=== PATIENT | male | born 1935 ===

== ENCOUNTER 2018-01-23 07:58 | Day surgery (SDC) | payer MEDICARE, OTHER ==
[~2018-01-23] VITALS: Ht 162.6 cm; Wt 74.4 kg
[~2018-01-23 07:58] MED LIST: ALPR.5 PO; ALTACE; AMLO5; AMLO5 PO; ASPI81CH PO; ATOR10; BISHYD5; CEPH500 PO; CETI5 PO; CHOL10002 PO; CLOP75 PO; Cipro250 MG PO; Colace100 MG PO; DIAZ5 PO; FURO20 PO; FURO40 PO; Flonase 0.05% N16 GM; HYDACE5 PO; IRON325 MG PO; JOINT ADVANTAGE GOLD; LANS30EC PO; LEVSOD100 PO; LIVALO1 MG PO; LIVALO2 MG PO; Norvasc2.5 MG PO; OMEP20ER; OXYACE10 PO; OXYACE5T PO; PANT40 PO; POTA10T PO; POTCHL20ER; QUET25 PO; QUIN200; RAMI5 PO; ROSU5 PO; SERT100 PO; SERT25 PO; SODBIC650 PO; Sodium Bicarbo325 MG PO; VITAMIN D32000 UNIT PO; [UNRECOGNIZED DRUG - REMARK]; [UNRECOGNIZED DRUG - REMARK]
== END 2018-01-23 10:35 | disposition home or self-care (01) ==
LOC: ORSCSDS 07:58
PROVIDERS: Podiatrist Foot & Ankle Surgery
PROC: 0QBN0ZZ Excision of Right Metatarsal, Open Approach (ICD-10-PCS; principal; 2018-01-23 09:00)
DX: M25.871 Other specified joint disorders, right ankle and foot (principal); M19.071 Primary osteoarthritis, right ankle and foot; Q82.8 Other specified congenital malformations of skin; I10 Essential (primary) hypertension; I50.9 Heart failure, unspecified; I25.10 Atherosclerotic heart disease of native coronary artery without angina pectoris; K21.9 Gastro-esophageal reflux disease without esophagitis; E03.9 Hypothyroidism, unspecified; E78.00 Pure hypercholesterolemia, unspecified; F32.9 Major depressive disorder, single episode, unspecified; Z79.899 Other long term (current) drug therapy
CPT/HCPCS: 88305; 88311; J0690; J7030

== ENCOUNTER 2018-03-11 19:20 | Emergency (ER) | payer MEDICARE, OTHER ==
[~2018-03-11] VITALS: Ht 165.1 cm; Wt 72.6 kg
[2018-03-11 21:01] LABS: Source, Urine Catheter
[2018-03-11 21:05] LABS: Bilirubin, Urine Neg (Neg); Blood, Urine 5+ (Neg); Glucose Qualitative, Urine Neg (Neg); Ketones, Urine Neg (Neg); Leukocyte Esterase, Urine 3+ (Neg); Nitrite, Urine Neg (Neg); Protein, Urine 3+ (Neg); Urobilinogen, Urine NORM (Normal)
[2018-03-11 21:18] LABS: Appearance, Urine Cloudy (Clear); Color, Urine Yellow (P-Yellow)
[2018-03-11 21:19] LABS: White Blood Cells, Urine TNTC /hpf (0-5)
[2018-03-11 21:20] LABS: Bacteria Many /hpf; Squamous Epithelial Cells Rare /hpf (Few)
[2018-03-11] MEDS ORDERED: Cipro500 MG PO (21:44)
== END 2018-03-11 22:08 | disposition home or self-care (01) ==
LOC: ER 19:20
PROVIDERS: Emergency Medicine
DX: T83.091A Other mechanical complication of indwelling urethral catheter, initial encounter (principal); N39.0 Urinary tract infection, site not specified; Z79.899 Other long term (current) drug therapy; I10 Essential (primary) hypertension
CPT/HCPCS: 81001; 87077; 87086; 87186; 99283

== ENCOUNTER → 2018-12-08 | Outpatient (CLI) | payer MEDICARE, OTHER ==
[~2018-12-08] MED LIST changes: +Cipro500 MG PO
[2018-12-08 16:15] LABS: Source, Urine Clean Catch
[2018-12-08 16:50] LABS: Appearance, Urine Turbid (Clear); Bilirubin, Urine Neg (Neg); Blood, Urine 5+ (Neg); Color, Urine Yellow (P-Yellow); Glucose Qualitative, Urine 2+ (Neg); Ketones, Urine Neg (Neg); Leukocyte Esterase, Urine 3+ (Neg); Nitrite, Urine Neg (Neg); Protein, Urine 3+ (Neg); Specific Gravity, Urine 1.025 (1.003-1.022); Urobilinogen, Urine NORM (Normal)
[2018-12-08 17:01] LABS: White Blood Cells, Urine TNTC /hpf (0-5)
[2018-12-08 17:04] LABS: Bacteria Mod /hpf; Squamous Epithelial Cells Not Seen /hpf (Few); Yeast/Fungi Urine Mod /hpf
== END | disposition home or self-care (01) ==
LOC: LAB SHORT 16:12 → LAB 16:12 → EDSTATUS 12-08 15:35 → LAB FUT 12-08 15:35
PROVIDERS: Internal Medicine
DX: R30.0 Dysuria (principal)
CPT/HCPCS: 81001; 87086; 87106

== ENCOUNTER 2019-02-06 20:31 | Emergency (ER) | payer MEDICARE, OTHER ==
[~2019-02-06] VITALS: Ht 162.6 cm; Wt 77.1 kg
[2019-02-06 22:15] LABS: Calcium, Ionized (POC) 0.99 mmol/L (1.10-1.46); Chloride (POC) 95 mmol/L (98-108); Creatinine (POC) 9.9 mg/dL (0.8-1.3); Glucose (ISTAT POC) 121 mg/dL (70-99); Hemoglobin (POC) 8.8 g/dL (13.5-17.5); Potassium (POC) 3.7 mmol/L (3.5-5.5); Sodium (POC) 137 mmol/L (135-148); Total CO2 (POC) 30 mmol/L (21-32)
[2019-02-07] MEDS ORDERED: Percocet 5-3251 EACH PO (10:04)
[2019-02-07] MEDS ORDERED: GABA100 PO (10:05)
[2019-02-07] MEDS ORDERED: POTA10T PO (10:05)
== END 2019-02-06 22:43 | disposition home or self-care (01) ==
LOC: ER 20:31
PROVIDERS: Emergency Medicine
DX: S06.0X9A Concussion with loss of consciousness of unspecified duration, initial encounter (principal); I12.0 Hypertensive chronic kidney disease with stage 5 chronic kidney disease or end stage renal disease; N18.6 End stage renal disease; Z99.2 Dependence on renal dialysis; W18.30XA Fall on same level, unspecified, initial encounter; Z79.899 Other long term (current) drug therapy
CPT/HCPCS: 70450; 72125; 80047; 85014; 93005; 93010; 99284-25; L0160

== ENCOUNTER 2019-02-07 09:42 | Emergency (ER) | payer MEDICARE, OTHER ==
[~2019-02-07] VITALS: Ht 162.6 cm; Wt 79.4 kg
[2019-02-07] MEDS ORDERED: Percocet 5-3251 EACH PO (10:04)
[2019-02-07] MEDS ORDERED: POTA10T PO (10:05)
[2019-02-07] MEDS ORDERED: GABA100 PO (10:05)
== END 2019-02-07 11:22 | disposition home or self-care (01) ==
LOC: ER 09:42
DX: S06.5X9D Traumatic subdural hemorrhage with loss of consciousness of unspecified duration, subsequent encounter (principal); W18.30XD Fall on same level, unspecified, subsequent encounter; Z79.899 Other long term (current) drug therapy; I12.0 Hypertensive chronic kidney disease with stage 5 chronic kidney disease or end stage renal disease; N18.5 Chronic kidney disease, stage 5
CPT/HCPCS: 70450; 99283-25

== ENCOUNTER 2019-03-07 13:29 | Inpatient (IN) | payer MEDICARE, OTHER ==
[~2019-03-07] VITALS: Ht 165.1 cm; Wt 83.5 kg
[~2019-03-07 13:29] MED LIST changes: +GABA100 PO; +Percocet 5-3251 EACH PO
[2019-03-07 13:53] LABS: BASOPHILS ABSOLUTE AUTO 0.03 K/mm3 (0.00-0.23); BASOPHILS PERCENT AUTO 0 % (0-2); EOSINOPHILS ABSOLUTE AUTO 0.19 K/mm3 (0.00-0.68); EOSINOPHILS PERCENT AUTO 2 % (0-6); Hemoglobin 8.2 g/dL (13.5-17.5); IMMATURE GRAN ABSOLUTE AUTO 0.18 K/mm3 (0.00-0.10); IMMATURE GRAN PERCENT AUTO 2 % (0-1); LYMPHOCYTES ABSOLUTE AUTO 0.68 K/mm3 (0.84-5.20); LYMPHOCYTES PERCENT AUTO 8 % (21-46); MONOCYTES ABSOLUTE AUTO 0.98 K/mm3 (0.16-1.47); MONOCYTES PERCENT AUTO 11 % (4-13); Mean Corpuscular HGB 38.3 pg (26.0-34.0); Mean Corpuscular HGB Conc 31.5 g/dL (31.5-36.5); Mean Corpuscular Volume 122 fL (80-100); Mean Platelet Volume 8.7 fL (9.1-12.4); NEUTROPHILS ABSOLUTE AUTO 6.94 K/mm3 (1.96-9.15); NEUTROPHILS PERCENT AUTO 77 % (41-73); Platelet Count 158 K/mm3 (150-400); RDW Coefficient Variation 15.9 % (11.7-14.2); RDW Standard Deviation 72.2 fL (35.1-46.3); Red Blood Cell Count 2.14 M/mm3 (4.30-5.90)
[2019-03-07 14:23] LABS: Troponin I 0.138 ng/mL (0.000-0.040)
[2019-03-07 14:27] LABS: Albumin, Blood 2.9 g/dL (3.4-5.0); Albumin/Globulin Ratio 0.9 (0.8-1.8); Bilirubin, Total 0.6 mg/dL (0.1-1.0); Bun/Creatinine Ratio 4.7 (12.0-20.0); Calcium, Blood 7.9 mg/dL (8.5-10.1); Creatinine, Blood 10.2 mg/dL (0.60-1.20); Globulin, Blood 3.2 g/dL (2.2-4.0); Total Protein, Blood 6.1 g/dL (6.4-8.2)
[2019-03-07 14:54] LABS: Magnesium, Blood 1.7 mg/dL (1.6-2.4)
[2019-03-07 14:56] LABS: Thyroid Stimulating Hormone 2.29 uIU/mL (0.360-4.800)
--- NOTE | 2019-03-07 19:44 | NUR ---
PERITONEAL DIALYSIS PATIENT WITH PENDING ADMIT TO FLOOR VIA ER. ORDERS RECIEVED FOR [facility] CCPD THERAPY FROM DR KING. AWAITING ROOM ASSIGNMENT IN ORDER TO SET UP AND INITIATE THERAPY. WAIT TIME WILL COMMENCE 2014.
--- NOTE | 2019-03-07 21:33 | NUR ---
PATIENT ADMITTED TO PCU ROOM 6 FROM ER. TRANSFER DELAYED DUE TO NEED FOR URGENT ROOM ADJUSTMENTS IN UNIT SECONDARY TO TO EXISTING PATIENT ACUITIES. PATIENT TRANSFERED SOON STAT HOUSKEEPING ACCOMPLISHED IN RECIEVING ROOM. ONE UNIT WAIT TIME ASSESSED. PATIENT AWAKE ALERT AND IN NO APPARENT DISTRESS AT THIS TIME. CYCLER SET UP, PRIMED AND PROGRAMMED PER DR KING'S RX. PATIENT AESEPTICALLY CONNECTED AND THERAPY STARTED. INITIAL DRAIN MONITORED FOR COMPLETENESS AND COMFORT. EXIT SITE CARE DONE AND NEW STERILE DRESING APPLIED WITH STRAIN RELIEFS. PATIENT'S DAUGHTER AT BEDSIDE AT START OF FILL #1 AND PATIENT COMFORTABLE AND VISITING WELL COMPLETING ADMIT ASSESSMENT WITH ADMITTING MILL WORK.
[2019-03-07] MEDS ORDERED: CALC.25 PO (22:18)
[2019-03-07] MEDS ORDERED: UBID100 PO (22:18)
[2019-03-07] MEDS ORDERED: Rena-Vite Tabl0.8 MG PO (22:21)
[2019-03-07] MEDS ORDERED: CVS OMEGA-3 KR1 EACH PO (22:21)
[2019-03-07] MEDS ORDERED: Garlic1 EAC1 PO (22:22)
[2019-03-07] MEDS ORDERED: Calcium Acetat667 MG PO (22:22)
[2019-03-07 23:55] LABS: Source, Urine Catheter
[2019-03-07 23:57] LABS: Bilirubin, Urine Neg (Neg); Blood, Urine 5+ (Neg); Glucose Qualitative, Urine 2+ (Neg); Ketones, Urine Neg (Neg); Leukocyte Esterase, Urine 3+ (Neg); Nitrite, Urine Neg (Neg); Protein, Urine 3+ (Neg); Urobilinogen, Urine NORM (Normal)
[2019-03-08 00:01] LABS: Appearance, Urine Turbid (Clear); Color, Urine Pale Yellow (P-Yellow)
[2019-03-08 00:05] LABS: Bacteria Many /hpf; Red Blood Cells, Urine 0-2 /hpf (0-2); Squamous Epithelial Cells Few /hpf (Few); White Blood Cells, Urine TNTC /hpf (0-5); Yeast/Fungi Urine Mod /hpf
[2019-03-08 05:15] LABS: Hematocrit 25.2 % (37.0-53.0); Hemoglobin 7.9 g/dL (13.5-17.5); Mean Corpuscular HGB 37.8 pg (26.0-34.0); Mean Corpuscular HGB Conc 31.3 g/dL (31.5-36.5); Mean Corpuscular Volume 121 fL (80-100); Mean Platelet Volume 8.5 fL (9.1-12.4); Platelet Count 143 K/mm3 (150-400); RDW Coefficient Variation 15.9 % (11.7-14.2); RDW Standard Deviation 70.6 fL (35.1-46.3); Red Blood Cell Count 2.09 M/mm3 (4.30-5.90); White Blood Cell Count 6.99 K/mm3 (4.00-11.30)
[2019-03-08 05:57] LABS: Magnesium, Blood 1.7 mg/dL (1.6-2.4)
--- NOTE | 2019-03-08 06:00 | NUR ---
SHIFT SUMMARY PT WAS ALERT AND ORIENTED X 3 ON ARRIVAL FROM ER. HE DENIED ANY COMPLAINTS OF PAIN OR CHEST DISCOMFORT. PT IS ABLE TO COMMUNICATE EFFECTIVELY WITH STAFF, THOUGH HE IS HARD OF HEARING AND WEARS BILATERAL HEARING AIDES. HE DOES NOT DO WELL WHEN MULTIPLE PEOPLE ARE TALKING AT THE SAME TIME. PT HAS NEW AFIB WITHOUT A HISTORY OF SUCH. HE CONVERTED TO NORMAL SINUS WITH FIRST DEGREE AT 1430 ON 03/07. PT CONTINUES TO REMAIN IN THIS RYTHYM AT THIS TIME. PT TROPONIN WAS SLIGHTLY ELEVATED, AND T/O SHIFT CONTINUED TO INCREASE. PT ENDED WITH CRITICAL HIGH BY END OF SHIFT. PT SLEPT WELL, DENIED ANY PAIN AND HIS VITALS WERE STABLE T/O SHIFT. PT HAD NO ACUTE CHANGES TO HIS VITAL SIGNS OR LOC T/O SHIFT. HE HAS HIS BED IN THE LOWEST POSITION, 2X SIDE RAILS IN PLACE AND BED ALARM ACTIVE FOR SAFETY. PT HAS HIS CALL LIGHT IN REACH AND DEMONSTRATED APPROPRIATE USE OF IT. PT DENIED ANY UNMET NEEDS DURING THE NIGHT. PT WILL CONTINUE TO BE MONITORED UNTIL HANDOFF TO DAYSHIFT RN. .
[2019-03-08 06:24] LABS: Albumin, Blood 2.6 g/dL (3.4-5.0); Anion Gap 8 mmol/L (6-16); Blood Urea Nitrogen 49 mg/dL (8-24); CO2, Blood 28 mmol/L (21-32); Calcium, Blood 7.7 mg/dL (8.5-10.1); Chloride, Blood 99 mmol/L (98-108); Creatinine, Blood 9.78 mg/dL (0.60-1.20); Glomerular Filtration Rate 5 (60-); Glucose, Blood 114 mg/dL (70-99); Phosphorus, Blood 6.4 mg/dL (2.5-4.9); Potassium, Blood 3.9 mmol/L (3.5-5.5); Sodium, Blood 135 mmol/L (136-145)
--- NOTE | 2019-03-08 07:38 | NUR ---
PATIENT WAKENS EASILY TO FULL ORIENT. NO VERB COMPLAINTS EXPRESSED. OVERNIGHT CCPD THERAPY COMPLETE. PATIENT AESEPTICALLY DISCONNECTED AND CAPPED WITH NEW MINI-CAP. CYCLER STRIPPED AND CLEANED.
--- NOTE | 2019-03-08 11:23 | NUR ---
PARTIAL ECHOCARDIOGRAM COMPLETED
--- NOTE | 2019-03-08 19:09 | NUR ---
PATIENT ALERT, ORIENTED AND CONVERSANT. NO REPORT OF DISCOMFORT AT THIS TIME. OVERNIGHT CCPD SET UP, PRIMED AND PROGRAMMED PER DR KING'S RX. WHEN PRIME COMPLETED, PATIENT WAS AESEPTICALLY CONNECTED AND THERAPY STARTED. EXIT SITE CARE DONE. EXIT SITE CLEAR, DRY, TIGHT AND NON-TENDER. NEW STERILE DRESSING APPLIED WITH 2 STRAIN RELIEFS. INITIAL DRAIN MONITORED FOR PATIENT TOLERANCE. PCU STAFF AWARE OF CCPD THERAPY IN PROCESS THROUGHOUT NIGHT.
--- NOTE | 2019-03-09 01:29 | NUR ---
hemodyalisis continues, with no alarm, pt denies pain or discomfort, hoping to get some sleep before lab has to draw blood
[2019-03-09 04:21] LABS: Hematocrit 25.3 % (37.0-53.0); Hemoglobin 8.1 g/dL (13.5-17.5); Mean Corpuscular HGB 37.9 pg (26.0-34.0); Mean Platelet Volume 8.9 fL (9.1-12.4); Platelet Count 159 K/mm3 (150-400); RDW Coefficient Variation 15.5 % (11.7-14.2); RDW Standard Deviation 67.2 fL (35.1-46.3); Red Blood Cell Count 2.14 M/mm3 (4.30-5.90); White Blood Cell Count 7.15 K/mm3 (4.00-11.30)
[2019-03-09 04:22] LABS: Mean Corpuscular Volume 118 fL (80-100)
[2019-03-09 04:44] LABS: Percent Saturation 41.4 % (20.0-50.0)
[2019-03-09 04:50] LABS: Albumin, Blood 2.5 g/dL (3.4-5.0); Anion Gap 10 mmol/L (6-16); Blood Urea Nitrogen 46 mg/dL (8-24); CO2, Blood 27 mmol/L (21-32); Calcium, Blood 8.1 mg/dL (8.5-10.1); Chloride, Blood 99 mmol/L (98-108); Creatinine, Blood 9.21 mg/dL (0.60-1.20); Glomerular Filtration Rate 6 (60-); Glucose, Blood 110 mg/dL (70-99); Phosphorus, Blood 6.6 mg/dL (2.5-4.9); Potassium, Blood 3.6 mmol/L (3.5-5.5); Sodium, Blood 136 mmol/L (136-145)
--- NOTE | 2019-03-09 07:20 | NUR ---
a+o, pascale, dialisys completed, shoulders still limited in movement which is baseline, call light in reach, saline locked, room air, walking rounds completed with day staff
--- NOTE | 2019-03-09 12:27 | NUR ---
DIALYSIS-PD GATHERED SUPPLIES AND ENTERED PT'S ROOM. HE WAS SITTING UP IN BED EAING. I CLEANED AND SOAKED HIS PORT WITH ALCAVIS. TOOK INFO OFF OF THE MACHINE. THEN DC'ED THE TX PER MAIKEL. PT HAD NO COMPLAINTS, HOPES TO GO HOME TODAY.
--- NOTE | 2019-03-09 18:47 | NUR ---
SHIFT SUMMARY. A&OX3, PLEASANT, ONE ASSIST WITH FWW AND GB. PT DENIES PAIN, SOB, N/V. PT RECIEVED ONE UNIT PRBC AND TOLERATED WELL. TELE COTNINUED NSR WITH NO EVENTS. AND DAUGHTER IN TO VISIT THIS EVENING. NO NEW CHANGES.
--- NOTE | 2019-03-09 23:39 | NUR ---
DIALYSIS-PD 1899 BEGAN SETTING UP MACHINE FOR PT, TOOK MACHINE TO PT'S ROOM. WAITED FOR HIM TO GO TO THE BR. CONNECTED PT TO TX AT 2004. EXPLAINED ALARMS TO FLOOR NURSE. SITE CLEAR.
[2019-03-10 04:12] LABS: Hematocrit 26.5 % (37.0-53.0); Hemoglobin 8.8 g/dL (13.5-17.5)
[2019-03-10 04:45] LABS: Albumin, Blood 2.3 g/dL (3.4-5.0); Anion Gap 9 mmol/L (6-16); Blood Urea Nitrogen 46 mg/dL (8-24); Bun/Creatinine Ratio 5.1 (12.0-20.0); CO2, Blood 26 mmol/L (21-32); Calcium, Blood 7.9 mg/dL (8.5-10.1); Chloride, Blood 97 mmol/L (98-108); Creatinine, Blood 9.09 mg/dL (0.60-1.20); Glomerular Filtration Rate 6 (60-); Glucose, Blood 117 mg/dL (70-99); Phosphorus, Blood 5.6 mg/dL (2.5-4.9); Potassium, Blood 3.4 mmol/L (3.5-5.5); Sodium, Blood 132 mmol/L (136-145)
--- NOTE | 2019-03-10 05:44 | NUR ---
SHIFT SUMMARY. PD SET UP AT 1999 AND NO ADVERSE OCCURRANCE THRU NOC. ASSUMED CARE FOR THIS PT AT 1930. 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
--- NOTE | 2019-03-10 07:59 | NUR ---
pt laying in bed with P.D. still in place. pt wakes easily, denies pain, states he feels good, lungs are clear in upper mackey, with occ wheeze to mid field, dim in bases, resp even and unlabored, no cough noted, hrr, tele in place running sr with 1st degree per monitor, see strip, no edema noted, ppp+1, cap refill <3sec, vs stable, afebrile, iv site is clear and patent, to left wrist area, is s.l. 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 call light in reach.
--- NOTE | 2019-03-10 08:38 | NUR ---
DIALYSIS-PD TOOK SUPPLIES INTO PT'S ROOM. DC'ED TX PER PROTOCAL. PT EATING BREAKFAST. DENIES SOB. 98 ID [id number]. SOLUTION CLEAR. SITE CLEAR.
--- NOTE | 2019-03-10 12:08 | NUR ---
BEGAN ONE UNIT OF PRBC. VS STABLE. LUNGS ARE CLEAR T/O, PT AWARE TO CALL IF ANY CHANGES IN CONDITION. BLOOD CONSENT WAS SIGNED. HE IS SITTING UP IN THE CHAIR FOR LUNCH. CALL LIGHT IN REACH.
[2019-03-10] MEDS ORDERED: LO-DOSE ASPIRIN81 MG PO (14:40)
[2019-03-10] MEDS ORDERED: NITR.4SL SL (14:47)
--- NOTE | 2019-03-10 16:30 | NUR ---
PT HAS BEEN DISCHARGED TO HOME. WENT OVER ALL DISCHARGE INSTRUCTIONS WITH HIM, HE VERBALIZED UNDERSTANDING, WAS GIVEN OPPORTUNITY TO ASK QUESTIONS, HE DID NOT HAVE ANY, HIS F/U APPTS ARE SET, IV REMOVED INTACT, NEW MEDICATIONS CALLED INTO PHARMACY.HE DID RECIEVE ONE UNIT OF PRBCS WITH 40MG LASIX AFTER. GRANDSON CAME IN TO TAKE HIM HOME, HE ASSISTED HIM GETTING DRESSED. LEFT VIA WHEELCHAIR WITH INHALATION THERAPY TEACHER IN ATTENDENCE.
== END 2019-03-10 16:44 | disposition home or self-care (01) | DRG 280 ==
LOC: ER 13:29 → PCU 13:30
PROVIDERS: Emergency Medicine; Internal Medicine; Nurse Practitioner Acute Care; ADMIT Family Medicine
PROC: 3E1M39Z Irrigation of Peritoneal Cavity using Dialysate, Percutaneous Approach (ICD-10-PCS; principal; 2019-03-09)
PROC: 30233N1 Transfusion of Nonautologous Red Blood Cells into Peripheral Vein, Percutaneous Approach (ICD-10-PCS; 2019-03-10)
DX: I48.0 Paroxysmal atrial fibrillation (principal); N18.6 End stage renal disease; I21.A1 Myocardial infarction type 2; I12.0 Hypertensive chronic kidney disease with stage 5 chronic kidney disease or end stage renal disease; E87.1 Hypo-osmolality and hyponatremia; D63.1 Anemia in chronic kidney disease; Z99.2 Dependence on renal dialysis; E03.9 Hypothyroidism, unspecified; F41.8 Other specified anxiety disorders; I25.10 Atherosclerotic heart disease of native coronary artery without angina pectoris; E78.5 Hyperlipidemia, unspecified; M54.9 Dorsalgia, unspecified; M19.90 Unspecified osteoarthritis, unspecified site; Z91.81 History of falling; Z95.5 Presence of coronary angioplasty implant and graft; E83.39 Other disorders of phosphorus metabolism
CPT/HCPCS: 36415; 71046; 80053; 80069; 81001; 82728; 83540; 83550; 83735; 84443; 84484; 85014; 85018; 85025; 85027; 86850; 86900; 86901; 86923; 87086; 93005; 93010; 93308; 93321; 96360; 96361; 96372; 96374; 97116; 97162; 97530; 99285-25; G0378; J0881; J1940; J3010; J7030; J7050; P9016

== ENCOUNTER 2019-03-20 13:57 | Emergency (ER) | payer MEDICARE, OTHER ==
[~2019-03-20] VITALS: Ht 162.6 cm; Wt 74.8 kg
[~2019-03-20 13:57] MED LIST changes: +CALC.25 PO; +CVS OMEGA-3 KR1 EACH PO; +Calcium Acetat667 MG PO; +Garlic1 EAC1 PO; +LO-DOSE ASPIRIN81 MG PO; +NITR.4SL SL; +Rena-Vite Tabl0.8 MG PO; +UBID100 PO
[2019-03-20 14:46] LABS: BASOPHILS ABSOLUTE AUTO 0.05 K/mm3 (0.00-0.23); BASOPHILS PERCENT AUTO 1 % (0-2); EOSINOPHILS ABSOLUTE AUTO 0.18 K/mm3 (0.00-0.68); EOSINOPHILS PERCENT AUTO 2 % (0-6); Hematocrit 38.1 % (37.0-53.0); Hemoglobin 11.8 g/dL (13.5-17.5); IMMATURE GRAN ABSOLUTE AUTO 0.29 K/mm3 (0.00-0.10); IMMATURE GRAN PERCENT AUTO 4 % (0-1); LYMPHOCYTES ABSOLUTE AUTO 0.64 K/mm3 (0.84-5.20); LYMPHOCYTES PERCENT AUTO 8 % (21-46); MONOCYTES ABSOLUTE AUTO 0.79 K/mm3 (0.16-1.47); MONOCYTES PERCENT AUTO 10 % (4-13); Mean Corpuscular HGB 35.3 pg (26.0-34.0); Mean Corpuscular Volume 114 fL (80-100); Mean Platelet Volume 8.9 fL (9.1-12.4); NEUTROPHILS ABSOLUTE AUTO 6.01 K/mm3 (1.96-9.15); NEUTROPHILS PERCENT AUTO 76 % (41-73); NRBC ABSOLUTE 0.02 K/mm3 (0.00-0.02); NRBC Auto 0.3 /100 WBC (0.0-0.2); Platelet Count 166 K/mm3 (150-400); RDW Coefficient Variation 18.8 % (11.7-14.2); RDW Standard Deviation 78.3 fL (35.1-46.3); Red Blood Cell Count 3.34 M/mm3 (4.30-5.90); White Blood Cell Count 7.96 K/mm3 (4.00-11.30)
[2019-03-20 15:13] LABS: Troponin I 0.074 ng/mL (0.000-0.040)
[2019-03-20 15:29] LABS: Albumin, Blood 3.3 g/dL (3.4-5.0); Albumin/Globulin Ratio 0.9 (0.8-1.8); Bilirubin, Total 0.4 mg/dL (0.1-1.0); Globulin, Blood 3.7 g/dL (2.2-4.0); Potassium, Blood 3.8 mmol/L (3.5-5.5)
[2019-03-20 15:33] LABS: Bun/Creatinine Ratio 5.3 (12.0-20.0); Creatinine, Blood 9.64 mg/dL (0.60-1.20)
== END 2019-03-20 16:35 | disposition home or self-care (01) ==
LOC: ER 13:57
PROVIDERS: Emergency Medicine
DX: I48.91 Unspecified atrial fibrillation (principal); I12.9 Hypertensive chronic kidney disease with stage 1 through stage 4 chronic kidney disease, or unspecified chronic kidney disease; N18.9 Chronic kidney disease, unspecified; E78.5 Hyperlipidemia, unspecified
CPT/HCPCS: 36415; 80053; 84484; 85025; 93005; 93010; 99283-25

== ENCOUNTER 2019-03-23 11:56 | Inpatient (IN) | payer MEDICARE, OTHER ==
[~2019-03-23] VITALS: Ht 172.7 cm; Wt 74.8 kg
[2019-03-23 12:30] LABS: BASOPHILS ABSOLUTE AUTO 0.06 K/mm3 (0.00-0.23); BASOPHILS PERCENT AUTO 1 % (0-2); EOSINOPHILS ABSOLUTE AUTO 0.04 K/mm3 (0.00-0.68); EOSINOPHILS PERCENT AUTO 0 % (0-6); Hematocrit 35.8 % (37.0-53.0); Hemoglobin 11.4 g/dL (13.5-17.5); IMMATURE GRAN PERCENT AUTO 2 % (0-1); LYMPHOCYTES ABSOLUTE AUTO 0.53 K/mm3 (0.84-5.20); LYMPHOCYTES PERCENT AUTO 4 % (21-46); MONOCYTES ABSOLUTE AUTO 0.97 K/mm3 (0.16-1.47); MONOCYTES PERCENT AUTO 8 % (4-13); Mean Corpuscular HGB 35.5 pg (26.0-34.0); Mean Corpuscular HGB Conc 31.8 g/dL (31.5-36.5); Mean Corpuscular Volume 112 fL (80-100); Mean Platelet Volume 9.2 fL (9.1-12.4); NEUTROPHILS ABSOLUTE AUTO 10.73 K/mm3 (1.96-9.15); NEUTROPHILS PERCENT AUTO 86 % (41-73); NRBC ABSOLUTE 0.04 K/mm3 (0.00-0.02); NRBC Auto 0.3 /100 WBC (0.0-0.2); Platelet Count 162 K/mm3 (150-400); RDW Coefficient Variation 19.9 % (11.7-14.2); RDW Standard Deviation 79.6 fL (35.1-46.3); Red Blood Cell Count 3.21 M/mm3 (4.30-5.90); White Blood Cell Count 12.53 K/mm3 (4.00-11.30)
[2019-03-23 12:53] LABS: Albumin, Blood 2.8 g/dL (3.4-5.0); Albumin/Globulin Ratio 0.7 (0.8-1.8); Bilirubin, Total 0.7 mg/dL (0.1-1.0); Bun/Creatinine Ratio 4.9 (12.0-20.0); Calcium, Blood 9.2 mg/dL (8.5-10.1); Creatinine, Blood 10.6 mg/dL (0.60-1.20); Globulin, Blood 4.2 g/dL (2.2-4.0); Potassium, Blood 3.9 mmol/L (3.5-5.5)
[2019-03-23 17:03] LABS: Source, Urine Catheter
[2019-03-23 17:09] LABS: Bilirubin, Urine Neg (Neg); Blood, Urine 5+ (Neg); Glucose Qualitative, Urine 2+ (Neg); Ketones, Urine Neg (Neg); Leukocyte Esterase, Urine 3+ (Neg); Nitrite, Urine Neg (Neg); Protein, Urine 4+ (Neg); Urobilinogen, Urine NORM (Normal)
[2019-03-23 17:22] LABS: Appearance, Urine Cloudy (Clear); Color, Urine Yellow (P-Yellow)
[2019-03-23 17:26] LABS: Amorphous Light (0-Heavy); Bacteria Few /hpf; Mucus Light (0-Heavy); Squamous Epithelial Cells Rare /hpf (Few); White Blood Cells, Urine TNTC /hpf (0-5)
[2019-03-23] MEDS ORDERED: FLUC100 PO (19:31)
[2019-03-23 20:40] LABS: Automated BF WBC Count 0.012 K/mm3 (0-999); Body Fluid WBC Count 12 /mm3 (0-999)
[2019-03-23 20:48] LABS: Appearance, Body Fluid Clear (Clear); Color, Body Fluid No color (None-Yellow); RBC Count, Body Fluid 0 /mm3 (0-0)
[2019-03-23 20:57] LABS: Total Cell Count, Body Fluid 100
--- NOTE | 2019-03-23 21:40 | NUR ---
DIALYSIS-PD CALLED IN BY DR KING. AT 1730 GATHERED SUPPLIES AND WENT TO ER ROOM 16. TOOK A SAMPLE FOR THE LAB PER PROTOCAL. CARRIED TO THE LAB. TALKED TO THE PT AND HIS DAUGHTER. THE PT WAS LITTLE CONFUSED. UNABLE TO EXPLAIN HIS PD RX TO ME. CALLED HIS PD NURSE AND GOT HIS NORMAL RX. SET UP HIS MACHINE. TOOK IT TO HIS ROOM. THE STAFF WAS JUST TRANSFERRING HIM TO THE BED. SETUP HIS MACHINE IN THE ROOM. 2129 CONNECTED PT TO HIS PD TX PER PROTOCAL. CLEANED AND REDRESSED SITE. SITE WNL. UNABLE TO CHART IN ROOM DUE TO THE COMPUTER NOT FUNCTIONING.
--- NOTE | 2019-03-24 04:51 | NUR ---
SHIFT SUMMARY RECEIVED REPORT FROM ED RN. ARRIVED TO MEDICAL UNIT @ 2045 VIA STRETCHER. MAXIMUM ASSIST TO BED. ORIENTED TO ROOM AND CALL SYSTEM. DAUGHTER ACCOMPANIED. A/O, ABLE TO ANSWER QUESTIONS APPROPRIATELY. COOPERATIVE WITH CARE. NO C/O PAIN/DISCOMFORT. PERITONEAL DIALYSIS THROUGHOUT THE NIGHT. APPEARED TO REST THROUGHOUT SHIFT AFTER ADMISSION PROCESS COMPLETE. NO ACUTE CHANGES. CONSULT TO NEPHROLOGY CALLED. VSS/AFEBRILE. BED IN LOWEST POSITION. CALL LIGHT AND BELONGINGS WITHIN REACH. WCTM. REPORT TO ONCOMING RN.
[2019-03-24 05:23] LABS: Hemoglobin 9.7 g/dL (13.5-17.5); Mean Corpuscular HGB 35.5 pg (26.0-34.0); Mean Corpuscular HGB Conc 31.3 g/dL (31.5-36.5); Mean Corpuscular Volume 114 fL (80-100); NRBC ABSOLUTE 0.03 K/mm3 (0.00-0.02); NRBC Auto 0.4 /100 WBC (0.0-0.2); Platelet Count 156 K/mm3 (150-400); RDW Coefficient Variation 19.5 % (11.7-14.2); RDW Standard Deviation 80.5 fL (35.1-46.3); Red Blood Cell Count 2.73 M/mm3 (4.30-5.90); White Blood Cell Count 8.14 K/mm3 (4.00-11.30)
[2019-03-24 05:55] LABS: Magnesium, Blood 1.9 mg/dL (1.6-2.4)
[2019-03-24 06:11] LABS: Albumin, Blood 2.4 g/dL (3.4-5.0); Albumin/Globulin Ratio 0.6 (0.8-1.8); Bilirubin, Total 0.6 mg/dL (0.1-1.0); Bun/Creatinine Ratio 5.6 (12.0-20.0); Calcium, Blood 8.9 mg/dL (8.5-10.1); Creatinine, Blood 10.5 mg/dL (0.60-1.20); Globulin, Blood 3.8 g/dL (2.2-4.0); Potassium, Blood 3.8 mmol/L (3.5-5.5); Total Protein, Blood 6.2 g/dL (6.4-8.2)
--- NOTE | 2019-03-24 08:55 | NUR ---
DIALYSIS-PD GATHERED SUPPLIES. WENT TO PT ROOM AT 0810. DC'ED TX PER PROTOCAL AT 0820 SITE CLEAR. PT AWAKE, STILL ALITTLE CONFUSED. ID [id number] UF [id number].
--- NOTE | 2019-03-24 13:36 | NUR ---
pt gave permission to assist in care on 03/24/2019.
--- NOTE | 2019-03-24 18:45 | NUR ---
SHIFT SUMMARY OX3; AMBULATED IN HALLWAY WITH GAIT BELT AND WALKER STANDBY X1. EATING AND DRINKING WELL. PERITONEAL DIALYSIS PLANNED FOR THIS P.M. IN ROOM. MULTIPLE FAMILY MEMBERS TO VISIT. DR. KING ON CASE.
--- NOTE | 2019-03-24 19:35 | NUR ---
DIALYSIS-PD 1729 GATHERED SUPPLIES AND WENT TO PT'S ROOM. SET UP MACHINE. PT IN RECLINER WATCHING THE NEWS. WISHED TO STAY THERE A WHILE. CONNECTED PT TO TX AT 1929 PER MAIKEL. TALKED TO HIS RN. TOLD HER PT DIDN'T WANT TO GET BACK IN BED YET. GAVE HER MY PHONE NUMBER FOR ALARMS. SITE CLEAR AND DRY. PT APPEARS LESS CONFUSED THEN LAST NIGHT.
--- NOTE | 2019-03-24 21:10 | NUR ---
PERITANEAL DIALYSIS: PT IS GETTING HIS DIALYSIS OVERNOC WHILE HE SLEEPS. THE MACHINE HAS BEEN SET UP BY THE DIALYSIS NURSE. PT DENIES COMPLAINTS. WILL CONTINUE TO MONITOR.
--- NOTE | 2019-03-25 05:21 | NUR ---
VSS, AFEBRILE, A/O, PT SLEPT WELL OVERNOC, PT HAD PARATENEAL DIALYSIS DURING THE NOC, NO COMPLAINTS, PT IS AWAKE/ALERT AND IN GOOD SPIRITS. NO SIGNIFICANT CHANGES NOTED. WILL REPORT TO ON-COMING SHIFT.
[2019-03-25 05:50] LABS: BASOPHILS ABSOLUTE AUTO 0.01 K/mm3 (0.00-0.23); BASOPHILS PERCENT AUTO 0 % (0-2); EOSINOPHILS ABSOLUTE AUTO 0.18 K/mm3 (0.00-0.68); EOSINOPHILS PERCENT AUTO 3 % (0-6); Hematocrit 29.9 % (37.0-53.0); Hemoglobin 9.5 g/dL (13.5-17.5); IMMATURE GRAN PERCENT AUTO 2 % (0-1); LYMPHOCYTES ABSOLUTE AUTO 0.46 K/mm3 (0.84-5.20); LYMPHOCYTES PERCENT AUTO 9 % (21-46); MONOCYTES ABSOLUTE AUTO 0.48 K/mm3 (0.16-1.47); MONOCYTES PERCENT AUTO 9 % (4-13); Mean Corpuscular HGB 35.7 pg (26.0-34.0); Mean Corpuscular HGB Conc 31.8 g/dL (31.5-36.5); Mean Corpuscular Volume 112 fL (80-100); Mean Platelet Volume 9.2 fL (9.1-12.4); NEUTROPHILS ABSOLUTE AUTO 4.09 K/mm3 (1.96-9.15); NEUTROPHILS PERCENT AUTO 77 % (41-73); NRBC ABSOLUTE 0.02 K/mm3 (0.00-0.02); NRBC Auto 0.4 /100 WBC (0.0-0.2); Platelet Count 140 K/mm3 (150-400); RDW Coefficient Variation 19.6 % (11.7-14.2); RDW Standard Deviation 80.2 fL (35.1-46.3); Red Blood Cell Count 2.66 M/mm3 (4.30-5.90); White Blood Cell Count 5.32 K/mm3 (4.00-11.30)
[2019-03-25 06:16] LABS: Calcium, Blood 9.1 mg/dL (8.5-10.1); Potassium, Blood 3.5 mmol/L (3.5-5.5)
[2019-03-25 06:22] LABS: Bun/Creatinine Ratio 6.5 (12.0-20.0); Creatinine, Blood 10.4 mg/dL (0.60-1.20)
--- NOTE | 2019-03-25 13:24 | NUR ---
DIALYSIS-PD PT SEEMS ALOT MORE ALERT, LESS CONFUSED. GOT A CALL FROM RN ABOUT AN 2 HOURS AFTER I LEFT THE HOSPITAL. WITH ALARM ON THE ID SHE WAS UNABLE TO CLEAR. SHE SAID THAT SHE HAD DONE PD BEFORE. SAID THE HOSPITAL PHONE SYSTEM WOULDNT LET HER CALL MY NUMBER SO SHE CALLED ON HER CELL PHONE. I TALKIED HER THROUGH THE PROCEDURE. TOLD HER TO CALL ON ANY MORE ALARMS. GOT NO OTHERS. THIS MORNING THE MACHINE IS A LOW VOLUME ALARM ON 5 DRAIN OF 5. CLEARED ALARM. STARTED LAST FILL. WHEN THE TX WAS COMPLETED THE TECH CALLED ME AND I CAME UP AND DC'ED. PER MAIKEL. ID [id number] UF [id number]. SITE CLEAR. RN CALLED ABOUT SHOWERING THE PT. SENT PROPER BANDAIDS UP FOR AFTER SHOWER.
--- NOTE | 2019-03-25 17:25 | NUR ---
PT AOX4 AND COOPERATIVE OF ALL CARE. PT IS A TWO PERSON TO BEDSIDE COMODE. CALLS APPROPRAITELY. PT HAS BEEN UP WITH PHYSICAL THERAPY TODAY AND WORKED WELL. PT RESTING IN BED AT THIS TIME COBB WORKING WELL. WILL CONTINUE TO MONITOR.
--- NOTE | 2019-03-25 19:22 | NUR ---
DIALYSIS-PD 1814 GATHERED SUPPLIES AND WENT TO PT'S ROOM. SETUP MACHINE PER PROTOCDAVID. DAUGHTER IN THE ROOM. WE DISCUSSED HOW THE PT WAS SO MUCH IMPROVED. CONNECTED THE PT TO THE MACHINE PER PROTOCDAVID AT 1900. PT SITTING UP IN CHAIR AFTER COMPLETING DINNER. LEFT HIM WITH THE CALL LIGHT AND HIS PHONE. TALKED TO THE NURSE. INSTRUCTED TO CALL IF NEEDED.
--- NOTE | 2019-03-26 05:52 | NUR ---
SHIFT SUMMARY PT TRANSFERED FROM ROOM 345. PLEASANT AND COOPERATIVE. FULLY ALERT AND ORIENTED. PERITONEAL DIALYSIS RUNNING WHEN TRANSFERED TO ROOM AND RAN THROUGHOUT THE NIGHT WITH NO PROBLEMS. COBB CATHETER DRAINING CLOUDY YELLOW URINE WITH SOME SEDIMENT. LOW OUTPUT THIS EVENING. FISTULA TO R ARM, UNUSED AT THIS TIME BUT PT REPORTS THERE HAS BEEN TALK ABOUT POSSIBLY HAVING TO RETURN TO HEMODIALYSIS. PT SLEPT WELL THIS EVENING. NO COMPLAINTS OF PAIN OR DISCOMFORT. AFEBRILE. VITAL SIGNS STABLE. WILL CONTINUE TO MONITOR.
--- NOTE | 2019-03-26 07:05 | NUR ---
PATIENT WAKENS EASILY TO FULL ORIENT. VERBALIZES COMFORT AT THIS TIME. OVERNIGHT CCPD COMPLETE. PATIENT AESEPTICALLY DISCONNECTED AN NEW MINI-CAP INSTALLED ON CATHETER. DRESSING INTACT. CATHETR SECURED. CYCLER STRIPPED AND CLEANED. VOLUMES RECORED ON PATIENT CHART.
--- NOTE | 2019-03-26 10:16 | NUR ---
PATIENT WAS OFFERED A SHOWER AND HE DECLINED HE WANTS TO WAIT AND SEE HOW HE FEELS THIS AFTERNOON. WILL OFFER AGAIN LATER TODAY.
--- NOTE | 2019-03-26 18:29 | NUR ---
Met with patient to review his symptoms and needs. Pt only real complaint is the fullness he feels in his abdomen and fatigue. Ptient is anxious about his future care needs and his wifes decline. Pt is stressed over conversation with Dr. Santiago and thinking about the fact that he may need to transition to hemodialysis. Review of home life with daughter and patient. He lives next to his daughter with his who is getting more confussed and having more symptoms of dementia. He is having difficulty with toileting and some ADL's. Review with the daughter shows they both are struggling to function. The patients has been trying to help him toilet. The patient is truggling in helping to prepare meals like he used to. Fmily brings them meals but starting to notice they are not eating like they used to. Pt is very hard of hearing even with hearing aids. Daughter states they have call alert button. Asked patient if he had a plan for the future for him and his so they could stay in his home.Pt states he has recently started to think about it. He has not really wanted to face the changes. He expressed difficulty with dialysis and starting it late because of having to watch her at night. Met separately with daughter. She works realtime court reporter her and [employer] help. They are getting fatigued and worn down. reviewed that they both may need 24 hour care soon due to disease and he is loosing hearing, her mother is on oxygen and getting more confussed. Reviewed what hemodialysis scheduel includes. They have very limited caregiver help but are willing to get more. suggested mid day to late evening to give them some family time and respite. Reviewed with patients daughter advance directives. She states they have a will but no POA. He does not have a AD or polst. Reviewed full code and levels of treatment. She expressed he would not want full code. We reviewed a polst and levels of care. She thinks he would not want venitlation or CPR but still wanted limited care and dialysis. She will review with father. Gave patients daughter Leslee our contact information for follow up support. Their primary care is Doctor Miley. Gave her some suggested questions to discuss with him and Dr. Santiago.
--- NOTE | 2019-03-26 18:36 | NUR ---
UPON ENTERING ROOM, PATIENT AWAKE, ALERT, ORIENTED AND VISITING WITH DAUGHTER. CYCLER PROGRAMMED, STRUNG AND PRIMED PER DR KING'S ORDER. WHEN PRIME COMPLETE, PATIENT WAS AESEPTICALLY CONNECTED AND OVERNIGHT CCPD STARTED WITH COMMENCE OF INITIAL DRAIN. PATIENT MONITORED FOR COMFORT DURING I.D. EXIT SITE CARE DONE. SITE CLEANSED WITH STERILE GAUZE AND EXSEPT. NEW DRESSING APPLIED WITH 2 STRAIN RELIEFS. EXIT SITE WITH SOME REDNESS BUT NO PAIN OR DRAINAGE. SOFTWARE SYSTEMS ENGINEER AWARE OF OVERNIGHT THERAPY IN PROGRESS AT THIS TIME.
--- NOTE | 2019-03-26 19:18 | NUR ---
shift summary pt up to chair for meals today. stated he felt nauseated with ot today but it self resolved. no pain. peritoneal dialysis started this evening by furnace attendantTroy jones. 1-2 person assist out of bed.
[2019-03-27 02:41] LABS: Source, Urine Catheter
[2019-03-27 02:46] LABS: Bilirubin, Urine Neg (Neg); Blood, Urine 5+ (Neg); Glucose Qualitative, Urine 3+ (Neg); Ketones, Urine Neg (Neg); Leukocyte Esterase, Urine 3+ (Neg); Nitrite, Urine Neg (Neg); Protein, Urine 3+ (Neg); Urobilinogen, Urine NORM (Normal); pH, Urine 6.5 (5.0-8.0)
[2019-03-27 02:50] LABS: Appearance, Urine Cloudy (Clear); Color, Urine Yellow (P-Yellow)
[2019-03-27 02:52] LABS: Bacteria Many /hpf; Squamous Epithelial Cells Few /hpf (Few); White Blood Cells, Urine TNTC /hpf (0-5)
--- NOTE | 2019-03-27 04:23 | NUR ---
SHIFT SUMMARY NO ACUTE CHANGES THIS SHIFT. PT CONTINUED TO REPORT L SIDE MID BACK BACK THAT PT REPORTS IS NEW. THIS WAS ADDRESSED BY DAY SHIFT MD WITH NO NEW ORDERS. MEDICATED W/ TYLENOL 650 MG WHICH APPEARED TO BE EFFECTIVE. PT SLEPT WELL FOLLOWING. PERITONEAL DIALYSIS RAN THROUGHOUT THE NIGHT WITH NO ALARMS AND NO ISSUES. COBB CATHETER IN PLACE, PT HAS LOW OUTPUT CHRONICALLY. FISTULA TO DEWAYNE WITH GOOD THRILL AND BRUIT. PLACED FOR PREPARATION TO SWITCH TO HEMODIALYSIS. PT IS NOT CURRENTLY A HEMODIALYSIS PT. VITAL SIGNS STABLE. WILL CONTINUE TO MONITOR.
--- NOTE | 2019-03-27 07:07 | NUR ---
PATIENT IN BED, RESTING QUIETLY. OPENS EYES TO VERBAL STIMULI. FULL ORIENT. OVERNIGHT CCPD COMPLETE. ID : [id number] , TOT UF : [id number] . VALUES CHARTED. PATIENT AESEPTICALLY DISCONNECTED AND NEW MINI-CAP INSTALLED ON CATHETER. CATHETER SECURED FOR THE DAY. CYCLER STRIPPED AND CLEANED.
[2019-03-27] MEDS ORDERED: LEVFLO500 PO (11:06)
--- NOTE | 2019-03-27 13:55 | NUR ---
DISCHARGE NOTE DISCHARGE PRESCRIPTIONS FAXED TO PREFERED PHARMACY. IV DC'D WNL. PT PROVIDED WITH HARDCOPY AND VERBAL INSTRUCTIONS FOR DISCHARGE RE:MEDICATIONS, DIAGNOSES, FOLLOW UP APPOINTMENTS. PT AND FAMILY HAD NO FURTHER QUESTIONS. PT DRESSED IN PERSONAL CLOTHING AND PERSONAL POSSESSIONS GIVEN TO PT. PT ESCORTED OUT VIA WHEELCHAIR ACCOMPANIED BY FIELD HUMAN RESOURCES MANAGER. HOME HEALTH ARRANGEMENTS SET UP BY CARE MANAGEMENT.
== END 2019-03-27 12:54 | disposition home health service (06) | DRG 698 ==
LOC: ER 11:56 → MEDS 18:58 → ENPENDDIS 03-27 10:33 → MEDS 03-27 12:54
PROVIDERS: Emergency Medicine; Hospitalist; Internal Medicine; Nurse Practitioner Acute Care; ADMIT Internal Medicine
DX: T83.511A Infection and inflammatory reaction due to indwelling urethral catheter, initial encounter (principal); G92 Toxic encephalopathy; N18.6 End stage renal disease; A41.9 Sepsis, unspecified organism; I13.11 Hypertensive heart and chronic kidney disease without heart failure, with stage 5 chronic kidney disease, or end stage renal disease; E87.1 Hypo-osmolality and hyponatremia; N39.0 Urinary tract infection, site not specified; Z99.2 Dependence on renal dialysis; I25.10 Atherosclerotic heart disease of native coronary artery without angina pectoris; E03.9 Hypothyroidism, unspecified; I48.0 Paroxysmal atrial fibrillation; Z91.81 History of falling; L89.151 Pressure ulcer of sacral region, stage 1; Z95.5 Presence of coronary angioplasty implant and graft; E78.5 Hyperlipidemia, unspecified; Z87.820 Personal history of traumatic brain injury; I25.2 Old myocardial infarction; D63.1 Anemia in chronic kidney disease; F32.9 Major depressive disorder, single episode, unspecified; K21.9 Gastro-esophageal reflux disease without esophagitis
CPT/HCPCS: 36415; 51702; 51798; 70450; 71046; 80048; 80053; 81001; 83605; 83735; 83880; 84145; 84484; 85025; 85027; 87040; 87070; 87077; 87086; 87186; 87205; 89051; 93005; 93010; 96360-59; 96361-59; 97110; 97116; 97162; 97166; 97530; 97535; 99285-25; J0696; J1644; J7030; J7040

== ENCOUNTER 2019-04-21 19:10 | Emergency (ER) | payer MEDICARE, OTHER ==
[~2019-04-21] VITALS: Ht 165.1 cm; Wt 81.7 kg
[~2019-04-21 19:10] MED LIST changes: +FLUC100 PO; +LEVFLO500 PO
[2019-04-21 20:09] LABS: BASOPHILS ABSOLUTE AUTO 0.04 K/mm3 (0.00-0.23); BASOPHILS PERCENT AUTO 1 % (0-2); EOSINOPHILS PERCENT AUTO 5 % (0-6); Hematocrit 31.8 % (37.0-53.0); Hemoglobin 10.4 g/dL (13.5-17.5); IMMATURE GRAN ABSOLUTE AUTO 0.27 K/mm3 (0.00-0.10); IMMATURE GRAN PERCENT AUTO 4 % (0-1); LYMPHOCYTES ABSOLUTE AUTO 0.91 K/mm3 (0.84-5.20); LYMPHOCYTES PERCENT AUTO 14 % (21-46); MONOCYTES ABSOLUTE AUTO 0.89 K/mm3 (0.16-1.47); MONOCYTES PERCENT AUTO 14 % (4-13); Mean Corpuscular HGB 37.3 pg (26.0-34.0); Mean Corpuscular HGB Conc 32.7 g/dL (31.5-36.5); Mean Corpuscular Volume 114 fL (80-100); Mean Platelet Volume 9.1 fL (9.1-12.4); NEUTROPHILS ABSOLUTE AUTO 3.98 K/mm3 (1.96-9.15); NEUTROPHILS PERCENT AUTO 62 % (41-73); Platelet Count 156 K/mm3 (150-400); RDW Coefficient Variation 19.2 % (11.7-14.2); RDW Standard Deviation 81.4 fL (35.1-46.3); Red Blood Cell Count 2.79 M/mm3 (4.30-5.90); White Blood Cell Count 6.39 K/mm3 (4.00-11.30)
[2019-04-21 20:46] LABS: Albumin, Blood 3.3 g/dL (3.4-5.0); Bilirubin, Total 0.4 mg/dL (0.1-1.0); Bun/Creatinine Ratio 5.8 (12.0-20.0); Calcium, Blood 8.6 mg/dL (8.5-10.1); Creatinine, Blood 9.71 mg/dL (0.60-1.20); Globulin, Blood 3.4 g/dL (2.2-4.0); Potassium, Blood 3.8 mmol/L (3.5-5.5); Total Protein, Blood 6.7 g/dL (6.4-8.2)
[2019-04-21 21:58] LABS: Source, Urine Catheter
[2019-04-21 22:12] LABS: Appearance, Urine Bloody (Clear); Bilirubin, Urine Neg (Neg); Blood, Urine 4+ (Neg); Color, Urine Red (P-Yellow); Glucose Qualitative, Urine Neg (Neg); Ketones, Urine Neg (Neg); Leukocyte Esterase, Urine Neg (Neg); Nitrite, Urine Neg (Neg); Protein, Urine 4+ (Neg); Specific Gravity, Urine 1.015 (1.003-1.022); Urobilinogen, Urine NORM (Normal)
[2019-04-21 22:23] LABS: Red Blood Cells, Urine TNTC /hpf (0-2); White Blood Cells, Urine 50-100 /hpf (0-5)
[2019-04-21 22:24] LABS: Bacteria Mod /hpf; Squamous Epithelial Cells Rare /hpf (Few)
== END 2019-04-22 00:07 | disposition home or self-care (01) ==
LOC: ER 19:10
PROVIDERS: Physician Assistant
DX: I12.0 Hypertensive chronic kidney disease with stage 5 chronic kidney disease or end stage renal disease (principal); N18.6 End stage renal disease; Z99.2 Dependence on renal dialysis; Z79.899 Other long term (current) drug therapy
CPT/HCPCS: 36415; 80053; 81001; 85025; 87077; 87086; 87186; 99283

== ENCOUNTER 2019-05-07 14:21 | Inpatient (IN) | payer MEDICARE, OTHER ==
[~2019-05-07] VITALS: Ht 165.1 cm; Wt 91.4 kg
[~2019-05-07 14:21] MED LIST changes: -GABA100 PO; -LEVSOD100 PO; +LEVSOD112 PO; -LIVALO2 MG PO; -Rena-Vite Tabl0.8 MG PO; -SERT100 PO; -VITAMIN D32000 UNIT PO
[2019-05-07 15:25] LABS: BASOPHILS ABSOLUTE AUTO 0.05 K/mm3 (0.00-0.23); BASOPHILS PERCENT AUTO 1 % (0-2); EOSINOPHILS ABSOLUTE AUTO 0.18 K/mm3 (0.00-0.68); EOSINOPHILS PERCENT AUTO 2 % (0-6); Hematocrit 25.1 % (37.0-53.0); Hemoglobin 8.1 g/dL (13.5-17.5); IMMATURE GRAN ABSOLUTE AUTO 0.45 K/mm3 (0.00-0.10); IMMATURE GRAN PERCENT AUTO 6 % (0-1); LYMPHOCYTES PERCENT AUTO 9 % (21-46); MONOCYTES ABSOLUTE AUTO 1.01 K/mm3 (0.16-1.47); MONOCYTES PERCENT AUTO 14 % (4-13); Mean Corpuscular HGB 35.8 pg (26.0-34.0); Mean Corpuscular HGB Conc 32.3 g/dL (31.5-36.5); Mean Corpuscular Volume 111 fL (80-100); Mean Platelet Volume 9.1 fL (9.1-12.4); NEUTROPHILS PERCENT AUTO 68 % (41-73); Platelet Count 127 K/mm3 (150-400); RDW Coefficient Variation 18.6 % (11.7-14.2); RDW Standard Deviation 75.7 fL (35.1-46.3); Red Blood Cell Count 2.26 M/mm3 (4.30-5.90); White Blood Cell Count 7.49 K/mm3 (4.00-11.30)
[2019-05-07 15:44] LABS: Albumin/Globulin Ratio 0.9 (0.8-1.8); Bilirubin, Total 0.4 mg/dL (0.1-1.0); Bun/Creatinine Ratio 5.5 (12.0-20.0); Calcium, Blood 8.8 mg/dL (8.5-10.1); Creatinine, Blood 9.95 mg/dL (0.60-1.20); Globulin, Blood 3.3 g/dL (2.2-4.0); Potassium, Blood 3.2 mmol/L (3.5-5.5); Total Protein, Blood 6.3 g/dL (6.4-8.2); Troponin I 0.553 ng/mL (0.000-0.040)
--- NOTE | 2019-05-07 21:45 | NUR ---
2ND UNIT PRBC'S CHECKED W/[place] GOMEZ AND COMMENCED AT 2121. PT VSS AT THAT TIME AND AWARE OF POSSIBLE TRANSFUSION REACTIONS. THIS RN REMAINED W/PT FOR 20 MINS AND VSS W/O S/S REACTION. WILL CONTINUE TO MONITOR FOR CHANGES.
--- NOTE | 2019-05-07 22:03 | NUR ---
PERITONEAL DIALYSIS ORDERED BY DR KING. OVERNIGHT CCPD THERAPY WILL BE STARTED SOON PATIENT TRANSFERED TO FLOOR FROM ED.
[2019-05-07 22:17] LABS: Source, Urine Catheter
[2019-05-07 22:19] LABS: Appearance, Urine Hazy (Clear); Bilirubin, Urine Neg (Neg); Blood, Urine 5+ (Neg); Color, Urine Yellow (P-Yellow); Glucose Qualitative, Urine 2+ (Neg); Ketones, Urine Neg (Neg); Leukocyte Esterase, Urine 3+ (Neg); Nitrite, Urine Neg (Neg); Protein, Urine 4+ (Neg); Urobilinogen, Urine NORM (Normal); pH, Urine 6.5 (5.0-8.0)
[2019-05-07 22:29] LABS: Bacteria Many /hpf; Squamous Epithelial Cells Not Seen /hpf (Few); White Blood Cells, Urine TNTC /hpf (0-5)
--- NOTE | 2019-05-07 23:21 | NUR ---
PERITONEAL DIALYSIS PATIENT ADMITTED TO [facility] VIA ER WITH CONSULT FOR DR KING. PATIENT ABLE TO TRANSFER FROM [facility] TO BED WITH MINIMAL ASSIST FOR STABILITY. OVERNIGHT CCPD THERAPY SET UP AND INITIATED PER RX. PT REPORTED EXIT SITE DRESSING WAS CHANGED THIS MORNING AND DECLINED DRESSING CHANGE TONIGHT. INITIAL DRAIN MONITORED FOR PT TOLERANCE. NO DISCOMFORT REPORTED. EFFLUENT CLEAR SHARITA. [facility] STAFF AWARE OF OVERNIGHT THERAPY IN PROGRESS. MACHINE RESET PROCEDURE REVIEWED WITH YARD MOTOR OPERATOR.
--- NOTE | 2019-05-07 23:36 | NUR ---
PT HAS A FISTULA IN THE R FA, GOOD BRUIT
--- NOTE | 2019-05-07 23:37 | NUR ---
2315 PT ARRIVED FROM ER AT 2234, PT NOW LYING IN BED, DENIES ANY DISCOMFORT. TELE NSR 1ST DEGREE BLOCK AT 74. PT HAS FISTULA IN R FA WITH GOOD BRUIT. PERITONEAL DIAYSIS CATH ON ABD WITH DRESSING C/D/I. MANAGER OF REGULATORY AFFAIRS IN ROOM GETTING PT SET UP FOR PD TONIGHT. SCD'S ON. PT HAS CHRONIC COBB THAT WAS CHANGED YESTERDAY AT [facility]. PT DENIES NEED FOR ANYTHING ELSE AT THIS TIME. NO APPARENT SIGNS OF DISTRESS. CALL LIGHT IS IN REACH.
--- NOTE | 2019-05-08 00:30 | NUR ---
PT LYING IN BED, EYES CLOSED, APPEARS TO BE RESTING. BREATHING IS EVEN, UNLABORED. NO APPARENT SIGNS OF DISTRESS. CALL LIGHT IS IN REACH.
[2019-05-08 01:20] LABS: Mean Corpuscular HGB 37.6 pg (26.0-34.0); Mean Corpuscular HGB Conc 33.3 g/dL (31.5-36.5); Mean Corpuscular Volume 113 fL (80-100); Mean Platelet Volume 8.8 fL (9.1-12.4); Platelet Count 119 K/mm3 (150-400); RDW Coefficient Variation 18.7 % (11.7-14.2); RDW Standard Deviation 77.8 fL (35.1-46.3); Red Blood Cell Count 2.13 M/mm3 (4.30-5.90); White Blood Cell Count 6.38 K/mm3 (4.00-11.30)
[2019-05-08 01:38] LABS: BAND PERCENT MAN 5 % (0-8); BASOPHILS PERCENT MAN 0 % (0-2); EOSINOPHILS ABSOLUTE MAN 0.19 K/mm3 (0.00-0.68); EOSINOPHILS PERCENT MAN 3 % (0-6); LYMPHOCYTES ABSOLUTE MAN 0.82 K/mm3 (0.84-5.20); LYMPHOCYTES PERCENT MAN 13 % (21-46); METAMYELOCYTE ABSOLUTE MAN 0.19 K/mm3 (0.00-0.00); METAMYELOCYTE PERCENT MAN 3 % (0-0); MONOCYTES ABSOLUTE MAN 0.82 K/mm3 (0.16-1.47); MONOCYTES PERCENT MAN 13 % (4-13); MYELOCYTE ABSOLUTE MAN 0.25 K/mm3 (0.00-0.00); MYELOCYTE PERCENT MAN 4 % (0-0); NEUTROPHILS ABSOLUTE MAN 4.08 K/mm3 (1.96-9.15); SEG NEUTROPHILS PERCENT MAN 59 % (41-73); TOTAL CELLS COUNTED 100
[2019-05-08 01:53] LABS: Bun/Creatinine Ratio 5.9 (12.0-20.0); Calcium, Blood 8.6 mg/dL (8.5-10.1); Potassium, Blood 3.3 mmol/L (3.5-5.5)
--- NOTE | 2019-05-08 02:44 | NUR ---
0220 PT HAS A CRITICAL TROPONIN OF 4.82, IT WAS 1.5. NO CHANGES ON TELE. PT IS ASYMPTOMATIC. CALLED DR AT 0220, NO ANSWER, WAITING FOR DR TO CALL BACK.
--- NOTE | 2019-05-08 02:45 | NUR ---
0200 PT LYING IN BED, EYES CLOSED, APPEARS TO BE RESTING. BREATHING IS EVEN, UNLABORED. NO APPARENT SIGNS OF DISTRESS. CALL LIGHT IS IN REACH.
--- NOTE | 2019-05-08 02:58 | NUR ---
[address] PHELPS RE CRITICAL TROPONIN. STATES HE WILL LOOK PATIENT UP. WILL WAIT FOR NEW ORDERS.
--- NOTE | 2019-05-08 03:58 | NUR ---
PT LYING IN BED, EYES CLOSED, APPEARS TO BE RESTING. BREATHING IS EVEN, UNLABORED. NO APPARENT SIGNS OF DISTRESS. CALL LIGHT IS IN REACH.
--- NOTE | 2019-05-08 03:59 | NUR ---
PT IS AAO X 4, ON RA. TELE NSR WITH 1ST DEGREE BLOCK. NO PAIN SINCE ARRIVAL TO FLOOR. PT HAS N/T IN HANDS BUT THIS IS NOT NEW. SCD'S ON PT. TROP WAS CRITICAL, IT WAS CALLED TO DR PHELPS, STARTING A HEPARIN GTT AND CALLING A CARDIOLOGY CONSULT.
[2019-05-08 04:32] LABS: International Normalized Ratio 0.97; Prothrombin Time Results 10.3 Sec (9.7-11.5)
--- NOTE | 2019-05-08 05:56 | NUR ---
PT LYING IN BED, EYES CLOSED, APPEARS TO BE RESTING. BREATHING IS EVEN, UNLABORED. NO APPARENT SIGNS OF DISTRESS. CALL LIGHT IS IN REACH. NO OTHER CHANGES THIS SHIFT.
--- NOTE | 2019-05-08 08:51 | NUR ---
DIALYSIS-PD ENTERED PT'S ROOM. HE WAS SOUND ASLEEP. WOKE HIM AND INFORMED I WAS GOING TO DISCONNECT HIM. HE ACKNOWLEDGED ME AND HE FELL RIGHT BACK TO SLEEP. SITE CLEAR. FLUID CLEAR. ID [id number] UF [id number]. DC'ED PT FROM TX PER MAIKEL AT 0825. PT STILL SLEEPING.
--- NOTE | 2019-05-08 10:00 | NUR ---
echocardiogram complete
--- NOTE | 2019-05-08 13:32 | NUR ---
spoke with dr. damico on the phone about patient. he states that dr. thomas will see the patient on saturday for a cardiac catheterization. at this time the patient they would like to have a blood transfusion and get the patient to a safe level.
--- NOTE | 2019-05-08 18:45 | NUR ---
shift summary patient is pleasant. blood pressures are starting to come up. there are no acute concerns at this time as the patient is getting two units of red blood cells and dialysis nurse is facilitating the patients peritoneal dialysis. currently the patient is alert and oriented, very pleasant.
--- NOTE | 2019-05-08 20:03 | NUR ---
DIALYSIS-PD INFORMED BY DAY SHIFT RN THAT PT'S BP HAS BEEN RUNNING LOW ALL DAY. THEY ARE GIVING HIM SOME PRBC. SPOKE TO THE PT AND HE DOESN'T FEEL THAT HE HAS MUCH FLUID ON, NO SOB. CONNECTING THE PT TO 2 - 6 L 1.5% DIANEAL. WITH A 12 HOUR TX. 5 EXCHANGES, 2000 FILL AND 1000 LAST FILL. [id number] TOTAL VOLUME AND 1:56 DWELL TIME. PT IS IN THE BATH ROOM AT THE MOMENT. WILL CONNECT WHEN HE GETS OUT.
--- NOTE | 2019-05-08 20:44 | NUR ---
DIALYSIS-PD PT CONNECTED TO PD TX AT 2040 PER PROTOCAL.
--- NOTE | 2019-05-08 20:55 | NUR ---
1ST UNIT PRBC'S COMPLETED W/O S/S ADVERSE REACTION AND VSS. SBP REMAINS 90'S AND PT DENIES COMPLAINTS OR S/S DISTRESS. WILL COMMENCE 2ND UNIT WHEN ARRIVES FROM LAB.
--- NOTE | 2019-05-09 00:45 | NUR ---
2ND PRBC'S COMPLETED W/O EVENT AND VSS/AFEBRILE. BP HAS IMPROVED SLIGHTLYT TO SBP 100'S. PT DENIES COMPLAINTS AND NOW ONLY HAS HEPARIN GTT INFUSING PER PHARMACY DOSING. WCTM. AM LABS PENDING.
[2019-05-09 04:58] LABS: Hematocrit 29.5 % (37.0-53.0); Hemoglobin 9.8 g/dL (13.5-17.5); Mean Corpuscular HGB 34.3 pg (26.0-34.0); Mean Corpuscular HGB Conc 33.2 g/dL (31.5-36.5); Mean Platelet Volume 8.9 fL (9.1-12.4); NRBC ABSOLUTE 0.02 K/mm3 (0.00-0.02); NRBC Auto 0.3 /100 WBC (0.0-0.2); Platelet Count 115 K/mm3 (150-400); RDW Coefficient Variation 21.6 % (11.7-14.2); RDW Standard Deviation 81.5 fL (35.1-46.3); Red Blood Cell Count 2.86 M/mm3 (4.30-5.90); White Blood Cell Count 6.49 K/mm3 (4.00-11.30)
[2019-05-09 05:08] LABS: Mean Corpuscular Volume 103 fL (80-100)
[2019-05-09 05:25] LABS: BAND PERCENT MAN 4 % (0-8); BASOPHILS PERCENT MAN 0 % (0-2); EOSINOPHILS ABSOLUTE MAN 0.12 K/mm3 (0.00-0.68); EOSINOPHILS PERCENT MAN 2 % (0-6); LYMPHOCYTES ABSOLUTE MAN 1.16 K/mm3 (0.84-5.20); LYMPHOCYTES PERCENT MAN 18 % (21-46); METAMYELOCYTE ABSOLUTE MAN 0.25 K/mm3 (0.00-0.00); METAMYELOCYTE PERCENT MAN 4 % (0-0); MONOCYTES ABSOLUTE MAN 0.51 K/mm3 (0.16-1.47); MONOCYTES PERCENT MAN 8 % (4-13); MYELOCYTE ABSOLUTE MAN 0.12 K/mm3 (0.00-0.00); MYELOCYTE PERCENT MAN 2 % (0-0); NEUTROPHILS ABSOLUTE MAN 4.28 K/mm3 (1.96-9.15); SEG NEUTROPHILS PERCENT MAN 62 % (41-73); TOTAL CELLS COUNTED 100
[2019-05-09 05:41] LABS: Albumin, Blood 2.4 g/dL (3.4-5.0); Anion Gap 14 mmol/L (6-16); Blood Urea Nitrogen 56 mg/dL (8-24); CO2, Blood 23 mmol/L (21-32); Calcium, Blood 8.9 mg/dL (8.5-10.1); Chloride, Blood 99 mmol/L (98-108); Glucose, Blood 123 mg/dL (70-99); Phosphorus, Blood 6.6 mg/dL (2.5-4.9); Sodium, Blood 136 mmol/L (136-145)
[2019-05-09 05:45] LABS: Bun/Creatinine Ratio 5.6 (12.0-20.0); Creatinine, Blood 9.96 mg/dL (0.60-1.20); Glomerular Filtration Rate 5 (60-)
--- NOTE | 2019-05-09 05:47 | NUR ---
CREATININE REMAINS CRITICAL BUT IS TRENDING DOWNWARD, NOW 9.96 WAS 10. PT CONSULTING NEPHROLOGY AND RECIEVING NIGHTLY PERITONEAL DIALYSIS. DISCUSSED W/TURN SUPERVISOR, BLAINE LUNA AND NO NEED TO CALL RESULT AT THIS TIME. WILL ENSURE DAY STAFF ARE AWARE.
--- NOTE | 2019-05-09 05:49 | NUR ---
SUMMARY: A/OX4, COOPERATIVE W/CARE AND SPECIFIES NEEDS. PT IS SBA TO TOILET W/FWW. HE IS SLIGHLTY WEAK ON FEET BUT HAS STEADY GAIT. HE HAS KNOWN TROPONIN ELEVATIONS AND IS AWAITING ANGIO ON SATURDAY W/HEPARIN GTT INFUSING AT 12 UN/KG/HR (16.8 ML/HR), PHARMACY DOSING/TITRATING. PT HAS CHRONIC INDWELLING COBB CATH TO LEG BAG W/CLOUDY YELLOW URINE OBSERVED, UTI POSSIBLE W/CX PENDING. NEPHROLOGY CONSULTING AND PT HAS NIGHTLY PERITONEAL DIALYSIS, NO ISSUES W/THIS SHIFT. CREATININE REMAINS CRITICAL BUT HAS TRENDED DOWNWARD SLIGHTLY. HE ALSO RECIEVED 2 UNITS PRBC'S W/O ADVERSE REACTION OR S/S DISTRESS. HGB/HCT IMPROVED THIS AM TO 9.8/29.5 (WAS 8.0/24.0). BP CONT'S HYPOTENSIVE AT 90'S-100'S/40'S-50'S BUT ASYMPTOMATIC OF CARDIAC DISTRESS AND DENIES PAIN/CP OR SOB. TELEMETRY INTACT AND CONT'S NSR W/1ST DEGREE BLOCK AT 50'S-60'S BPM. NO ACUTE CHANGES. WCTM AND REPORT TO DAY RN.
--- NOTE | 2019-05-09 09:27 | NUR ---
DIALYSIS-PD WENT TO PT'S ROOM, MACHINE ON 5 DWELL OF 5. WENT BACK UP AND DC'ED TX AT 0910 PER PROTOCAL. PT AWAKE AND ALERT. SITE CLEAR. FLUID CLEAR. LOW UF BUT USED 2 1.5% DIANEAL DUE TO LOW BP. BP CAME UP SLIGHTLY DURING THE NIGHT AFTER PRBC'S GIVEN.
--- NOTE | 2019-05-09 18:28 | NUR ---
shift summary patient is much weaker than he was yesterday. he struggles to keep his balance while sitting up in bed. he struggled to swallow his pills earlier and has been switched to taking his pills in applesauce.
--- NOTE | 2019-05-09 19:05 | NUR ---
[id number] PT IN AWAKE IN BED. HE'S TALKATIVE. WE DISCUSSED HIS TREATMENT AND BP, WHICH HAS BEEN REALLY LOW. HE SAYS HE FEELS GOOD. NO SOB OR EDEMA. TOLD HIM I WAS DOING 1 GREEN (2.5% DIANEAL) AND 1 YELLOW (1.5%). HE SAID HE WAS HAPPY WITH THAT. SETUP MACHINE. CLEANED AND DRESSED HIS CATH SITE. SLIGHT REDNESS. CONNECTED PT WHEN MACHINE WAS READY AT 1855. TALKED TO ONCOMING RN AND RN IN TRAINING ABOUT ALARMS. MADE SURE THEY KNEW WHERE MY PHONE COULD BE FOUND.
[2019-05-10 05:23] LABS: Hematocrit 28.3 % (37.0-53.0); Hemoglobin 9.6 g/dL (13.5-17.5); Mean Corpuscular HGB 34.2 pg (26.0-34.0); Mean Corpuscular HGB Conc 33.9 g/dL (31.5-36.5); Mean Corpuscular Volume 101 fL (80-100); Mean Platelet Volume 9.5 fL (9.1-12.4); Platelet Count 114 K/mm3 (150-400); RDW Coefficient Variation 21.5 % (11.7-14.2); RDW Standard Deviation 78.4 fL (35.1-46.3); Red Blood Cell Count 2.81 M/mm3 (4.30-5.90); White Blood Cell Count 6.74 K/mm3 (4.00-11.30)
[2019-05-10 05:55] LABS: Albumin, Blood 2.4 g/dL (3.4-5.0); Anion Gap 14 mmol/L (6-16); Blood Urea Nitrogen 54 mg/dL (8-24); Bun/Creatinine Ratio 5.2 (12.0-20.0); CO2, Blood 24 mmol/L (21-32); Chloride, Blood 96 mmol/L (98-108); Glomerular Filtration Rate 5 (60-); Glucose, Blood 118 mg/dL (70-99); Phosphorus, Blood 6.6 mg/dL (2.5-4.9); Sodium, Blood 134 mmol/L (136-145)
--- NOTE | 2019-05-10 07:12 | NUR ---
SHIFT SUMMARY; PATIENT REMAINED ON P. DYALISYS ALL NIGHT. HE DID GET UP AND TOOK A WALK WITH HIS SON TO THE HALLWAY AND BACK TWICE AND DID WELL. HE DENIED ANY CONCERNS OR DISCOMFORT THROUGHOUT THE SHIFT. AFTER TAKING HIS MEDS SHE SLEPT WELL THROUGHOUT THE NIGHT TILL AM MEDS. IV INFUSED WTIH NO DIFFICULTY, WITH HEPARIN DRIP, NO CHEST PAIN WAS NOTED. WILL REPORT TO DAY SHIFT.
--- NOTE | 2019-05-10 08:56 | NUR ---
DIALYSIS-PD ENTERED PT'S ROOM. HE WAS SLEEPY. KEPT FALLING BACK TO SLEEP. DC'ED HIS TX AT 0835 PER PROTOCAL. ID [id number] FLUID CLEAR. SITE DRESSED LAST NIGHT. WILL DO AGAIN TONIGHT. BP APPEARS STAY THE CONSTANT 90 TO 110.
--- NOTE | 2019-05-10 10:02 | NUR ---
patient started complaining of jaw numbness, doctor happened to be seeing the patient at the time. patient had jaw pain when he was admitted and from there his troponins had increased. doctor ordered a stat ekg and troponin drawn. stat ekg has been done, have made several attempts to call dr. cook for her to see the ekg. currently patient has taken one nitro which has resolved his jaw numbness. patient has an extensive cardiac history. patient is currently on heparin drip, and awaiting further instruction.
--- NOTE | 2019-05-10 18:07 | NUR ---
SHIFT SUMMARY PATIENT HAD ONE EPISODE OF JAW NUMBNESS THIS MORNING. IT WAS FOLLOWED BY A STAT EKG AND A TROPONIN. HIS TROPONIN WAS MUCH LOWER THAN IT WAS SATURDAY AND HIS JAW NUMBNESS WENT AWAY WITH ONE NITRO. HE DID GET A NITRO HEADACHE AFTERWARDS BUT HAS SINCE RESOLVED. PATIENT IS PLEASANT, NO ACUTE CONCERNS AT THIS TIME PER PATIENT AND FAMILY. AWAITING CARDIAC CATH AT THIS TIME WHICH IS SCHEDULED FOR TOMORROW, TIME UNKNOWN.
--- NOTE | 2019-05-10 20:32 | NUR ---
DIALYSIS-PD TOOK SUPPLIES TO PT'S ROOM. SET UP MACHINE. CONNECTED PT PER PROTOCAL. CLEANED AND DRESSED CATH SITE. TALKED HIS RN.
[2019-05-11 05:48] LABS: Albumin, Blood 2.5 g/dL (3.4-5.0); Anion Gap 13 mmol/L (6-16); Blood Urea Nitrogen 52 mg/dL (8-24); Bun/Creatinine Ratio 5.2 (12.0-20.0); CO2, Blood 23 mmol/L (21-32); Calcium, Blood 9.1 mg/dL (8.5-10.1); Chloride, Blood 95 mmol/L (98-108); Creatinine, Blood 9.98 mg/dL (0.60-1.20); Glomerular Filtration Rate 5 (60-); Glucose, Blood 197 mg/dL (70-99); Phosphorus, Blood 6.2 mg/dL (2.5-4.9); Sodium, Blood 131 mmol/L (136-145)
--- NOTE | 2019-05-11 05:54 | NUR ---
SHIFT SUMMARY SHIFT SUMMARY: PATIENT WAS PLEASANT AND COOPERATIVE THROUGHOUT THE SHIFT. HE WALKED TO THE BATHROOM ONCE AND THEN WITH HIS SON BACK AND FORTH TO THE HALLWAY TWICE. HE IS STILL WEAK IN HIS BILATERAL LOWER EXTREMITIES AND RIGHT SIDE IS GREATER THEN THE LEFT. THIS IS UNCHANGE FROM DAY PRIOR. P DYALISIS IS RUNNING WITH NO PROBLEMS. HEPARIN DRIP STILL INFUSING PER PHARMACY/MD ORDER. HE DENIED ANY S/SX OF CHEST PAIN, JAW PAIN, SHOULDER OR OTHER SIGNS OF CARDIAC DISTRESS. CREATINE LEVEL THIS AM WAS CRITICAL AT 9.71, THIS WAS LOWER THEN NIGHT BEFORE. INFORMED BARREL REPAIRER WHO AGREED MD DID NOT NEED TO BE CALLED. NO OTHER CHANGES WERE TO NOTE THIS SHIFT. WILL REPORT TO DAY SHIFT RN
--- NOTE | 2019-05-11 08:11 | NUR ---
PATIENT AWAKE, ALERT, COMFORTABLE IN BED THIS MORNING. OVERNIGHT CCPD COMPLETE. PATIENT AESEPTICALLY DISCONNECTED AND CAPPED. CATHETER SECURED. CYCLER STRIPPED AND CLEANED.
--- NOTE | 2019-05-11 18:13 | NUR ---
PT TRANSFERRED FROM [facility] TO ICU 6. REPORT RECIEVED FROM [facility] NURSE AND GAMA FROM MEDICAL. PT IS TIRED BUT ORIENTED WHEN ROUSED. FAMILY AT BEDSIDE WITH DR LOVE WHO DISCUSSES CODE STATUS WITH PT. PT WISHES TO REMAIN DNR EXCEPT FOR PROCEDURES. DNR BAND IN PLACE. JEREMY FROM PALLIATIVE CARE DISCUSSED POLST WITH PT AND FAMILY. PT'S SITE IS RIGHT GROIN, SLIGHT OOZE NOTED BUT NO NEW BLEEDING TO GAUZE PLACED IN CREASE BETWEEN PELVIS AND THIGH. SITE SOFT WITH NO HEMATOMA OR BRUISING OR TENDERNESS NOTED. DR LOVE STATES TO CALL DIALYSIS NURSE DUE TO HIGH CREATININE AND CONTRAST GIVEN FOR PROCEDURE. [place] RN CAME TO CONNECT PT TO PERITONEAL DIALYSIS. PT RESTING QUIETLY, FLAT BUT BED IN REVERSE TRENDELENBERG. DROWSY AT THIS TIME
--- NOTE | 2019-05-11 18:15 | NUR ---
Initial Visit: Palliative Care Consult for AD/POLST Received call from Pt's bedside nurse and she reports Pt would like to complete a POLST. Pt resting in bed upon arrival. Pt's daughter and son in law present during visit. Pt is A&Ox4. Pt confirms that he is interested in completing POLST. Educated Pt on life sustaining measures including risk factors. Family requests to have this discussion at a later time. Daughter states Pt appears to becoming graugy. Pt confirms that he would like to complete POLST at a later time when his is present. Family requests an extra copy to take home with them. Family accompanies this RN to Palliative office and extra copy of POLST and an advance directive. No other concerns reported at this time. Palliative Care will remain available.
--- NOTE | 2019-05-11 18:22 | NUR ---
PATIENT HAD CARDIAC CATH WITH CONTRAST THIS AFTERNOON. POST PROCEDURE PATIENT TRANSFERED TO ICU 6 FOR RECOVERY AND OBSERVATION. PATIENT AWAKE, ALERT AND WELL ORIENTED AND IN NO REPORTED DISCOMFORT. OVERNIGHT CCPD SET UP AND INITIATED PER DR KING'S RX. INITIAL DRAIN MONITORED FOR PATIENT COMFORT. EXIT SITE CARE DONE AND NEW STERILE DRESSING APPLIED INCUDING ONE STRAIN RELIEF. ICU STAFF INFORMED AND AWARE OF OVERNIGHT CCPD THERAPY IN PROGRESS.
--- NOTE | 2019-05-11 18:38 | NUR ---
SHIFT SUMMARY: PT RESTING QUIETLY IN BED. VSS. FAMILY SPOKE WITH PALLIATIVE CARE NURSE ABOUT POLST. PT'S GROIN SITE REMAINS UNCHANGED, SOFT, NO NEW BLEEDING OR OOZING. PT IS DROWSY WITH PERITONEAL DIALYSIS RUNNING. NO ACUTE NEEDS OR CONCERNS AT THIS TIME.
--- NOTE | 2019-05-12 00:08 | NUR ---
ASSUMED CARE OF PT, REPORT RCV'D FROM NGUYỄN BONILLA. PT ALERT AND ORIENTED SITTING UP IN BED SURROUNDED BY FAMILY EATING DINNER WITH ASSISTANCE. PT CURRENTLY RECEIVING PERITONEAL DIALYSIS. PER PT'S FAMILY, PT AND LIVE NEXT DOOR TO DAUGHTER/SON-IN-LAW WHO ARE VERY INVOLVED IN THEIR CARE. PT'S STOMACH IS FIRM AND DISTENDED, PT STATES THIS IS HIS NORMAL WHILE RECEIVING DIALYSIS. FEMORAL ACCESS SITE IS SOFT/NONTENDER WITH NO SIGNS OF BLEEDING. PT DENIES ANY CHEST/ARM/JAW PAIN OR SHORTNESS OF BREATH. PT'S FAMILY IS DISCUSSING PT'S WISHES AND POLST WELL UPCOMING CABG PROCEDURE. POLST COMPLETED AND AWAITING PHYSICIAN SIGNATURE. PT DENIES NEEDS AT THIS TIME. PLEASE SEE FULL SHIFT ASSESSMENT.
[2019-05-12 04:38] LABS: Hemoglobin 10.8 g/dL (13.5-17.5); Mean Corpuscular HGB 34.5 pg (26.0-34.0); Mean Corpuscular HGB Conc 33.8 g/dL (31.5-36.5); Mean Corpuscular Volume 102 fL (80-100); Mean Platelet Volume 9.3 fL (9.1-12.4); NRBC ABSOLUTE 0.03 K/mm3 (0.00-0.02); NRBC Auto 0.4 /100 WBC (0.0-0.2); Platelet Count 133 K/mm3 (150-400); RDW Coefficient Variation 20.6 % (11.7-14.2); RDW Standard Deviation 75.4 fL (35.1-46.3); Red Blood Cell Count 3.13 M/mm3 (4.30-5.90); White Blood Cell Count 7.65 K/mm3 (4.00-11.30)
[2019-05-12 05:03] LABS: Albumin, Blood 2.7 g/dL (3.4-5.0); Anion Gap 11 mmol/L (6-16); Blood Urea Nitrogen 52 mg/dL (8-24); Bun/Creatinine Ratio 5.4 (12.0-20.0); CO2, Blood 27 mmol/L (21-32); Calcium, Blood 9.2 mg/dL (8.5-10.1); Chloride, Blood 97 mmol/L (98-108); Creatinine, Blood 9.63 mg/dL (0.60-1.20); Glomerular Filtration Rate 6 (60-); Glucose, Blood 147 mg/dL (70-99); Potassium, Blood 3.6 mmol/L (3.5-5.5); Sodium, Blood 135 mmol/L (136-145)
--- NOTE | 2019-05-12 06:21 | NUR ---
SHIFT SUMMARY NO ACUTE CHANGES OVERNIGHT. VSS THROUGHOUT SHIFT. PT CONTINUES TO DENY CHEST PAIN OR SHORTNESS OF BREATH. FAMILY UPDATED ON PLAN TO TRANSFER PATIENT TODAY. WILL REPORT TO DAYSHIFT NURSE.
--- NOTE | 2019-05-12 07:30 | NUR ---
ASSUMED CARE: PT RESTING IN BED. DIALYSIS NURSE IN ROOM DISCONNECTING FROM PD. GROIN SITE SOFT, NONTENDER, NO SIGN OF HEMATOMA. NO FURTHER BLEEDING FROM SITE THAN INITIALLY NOTED POSTPROCEDURE YESTERDAY. DR LOVE CAME IN TO SEE OT THIS AM AND REQUESTS THAT WE CONTACT JOSE ABOUT BED PLACEMENT. APPLICATION SYSTEMS ARCHITECT AWARE. NO FURTHER NEEDS OR CONCERNS AT THIS TIME.
--- NOTE | 2019-05-12 08:30 | NUR ---
STRUCTURAL STEEL FITTER SPOKE WITH JOSE WHO STATED THEY HOPE TO BE ABLE TO TRANSFER PT EARLY AFTERNOON. PT AND FAMILY AWARE WELL DR LOVE
--- NOTE | 2019-05-12 08:44 | NUR ---
PATIENT RESTING QUIETLY UPON ENTERING ROOM THIS AM. WAKENS EASILY TO FULL ORIENT. OVERNIGHT CCPD COMPLETE. PATIENT AESEPTICALLY DISCONNECTED AND NEW MINI-CAP PLACED ON CATHETER. CATHETER SECURED FOR DAY IN WAIST BAND. CYCLERE STRIPPED AND CLEANED.
--- NOTE | 2019-05-12 13:13 | NUR ---
PT TRANSFERRED TO [facility] VIA [facility] BY [facility]. ATTEMPTED TO LEAVE MESSAGE FOR PT'S DAUGHTER. PT ALSO STATED THAT HE WOULD TEXT HER AND LET HER KNOW HE'S MOVING. ATTEMPTED TO CALL REPORT TWICE TO TWO DIFFERENT NURSES, BOTH UNAVAILABLE. BACK FACER AWARE
--- NOTE | 2019-05-12 13:32 | NUR ---
REPORT TO KATIE ADRIAN. NO FURTHER QUESTIONS OR CONCERNS
[2019-08-06] MEDS ORDERED: CALCIUM ACETAT667 MG PO (15:08)
[2019-08-06] MEDS ORDERED: LEVSOD100 PO (15:09)
[2019-08-10] MEDS ORDERED: NEPHRO-VITE RX1 EACH PO (14:38)
[2019-08-10] MEDS ORDERED: CEFTAZIDIME IV (14:45)
[2019-08-10] MEDS ORDERED: Culturelle1 CAP PO (14:47)
[2019-08-10] MEDS ORDERED: Vitamin D2000 UNIT PO (14:50)
== END 2019-05-12 12:24 | disposition short-term general hospital (02) | DRG 280 ==
LOC: ER 14:21 → MEDS 14:22 → ICUE 05-11 17:04
PROVIDERS: Emergency Medicine; Internal Medicine; Nurse Practitioner Acute Care; ADMIT Internal Medicine
PROC: 30233N1 Transfusion of Nonautologous Red Blood Cells into Peripheral Vein, Percutaneous Approach (ICD-10-PCS; principal; 2019-05-08)
PROC: B2111ZZ Fluoroscopy of Multiple Coronary Arteries using Low Osmolar Contrast (ICD-10-PCS; 2019-05-11)
PROC: 4A023N7 Measurement of Cardiac Sampling and Pressure, Left Heart, Percutaneous Approach (ICD-10-PCS; 2019-05-11)
PROC: B41 Imaging, Lower Arteries, Fluoroscopy (ICD-10-PCS; 2019-05-11)
DX: I21.4 Non-ST elevation (NSTEMI) myocardial infarction (principal); N18.6 End stage renal disease; I47.2 Ventricular tachycardia; I12.0 Hypertensive chronic kidney disease with stage 5 chronic kidney disease or end stage renal disease; I48.0 Paroxysmal atrial fibrillation; Z99.2 Dependence on renal dialysis; E03.9 Hypothyroidism, unspecified; G89.29 Other chronic pain; I25.10 Atherosclerotic heart disease of native coronary artery without angina pectoris; M19.90 Unspecified osteoarthritis, unspecified site; E78.5 Hyperlipidemia, unspecified; F41.8 Other specified anxiety disorders; K21.9 Gastro-esophageal reflux disease without esophagitis; E87.6 Hypokalemia; I95.9 Hypotension, unspecified; Z96.0 Presence of urogenital implants; Z66 Do not resuscitate
CPT/HCPCS: 36415; 36430; 71046; 80048; 80053; 80069; 81001; 83735; 84484; 85025; 85027; 85610; 85730; 86850; 86900; 86901; 86923; 87077; 87086; 87186; 93005; 93010; 93306; 93458; 96374; 97110; 97162; 97166; 97530; 99152; 99153; 99285-25; A9270; C1769; C1894; G0378; J0881; J1644; J2250; J3010; J7030; J7050; P9016; Q9967

== ENCOUNTER 2019-05-27 10:25 | Inpatient (IN) | payer MEDICARE, OTHER ==
[~2019-05-27] VITALS: Ht 162.6 cm; Wt 79.3 kg
[2019-05-27] MEDS ORDERED: CALC.25 PO (10:43)
[2019-05-27] MEDS ORDERED: Aspir 8181 MG PO (10:43)
[2019-05-27] MEDS ORDERED: METO25ER PO (10:47)
[2019-05-27 10:55] LABS: BASOPHILS ABSOLUTE AUTO 0.05 K/mm3 (0.00-0.23); BASOPHILS PERCENT AUTO 1 % (0-2); EOSINOPHILS ABSOLUTE AUTO 0.27 K/mm3 (0.00-0.68); EOSINOPHILS PERCENT AUTO 3 % (0-6); Hematocrit 24.8 % (37.0-53.0); Hemoglobin 7.9 g/dL (13.5-17.5); IMMATURE GRAN ABSOLUTE AUTO 0.22 K/mm3 (0.00-0.10); IMMATURE GRAN PERCENT AUTO 2 % (0-1); LYMPHOCYTES ABSOLUTE AUTO 0.52 K/mm3 (0.84-5.20); LYMPHOCYTES PERCENT AUTO 6 % (21-46); MONOCYTES ABSOLUTE AUTO 0.84 K/mm3 (0.16-1.47); MONOCYTES PERCENT AUTO 9 % (4-13); Mean Corpuscular HGB 35.7 pg (26.0-34.0); Mean Corpuscular HGB Conc 31.9 g/dL (31.5-36.5); Mean Corpuscular Volume 112 fL (80-100); NEUTROPHILS ABSOLUTE AUTO 7.13 K/mm3 (1.96-9.15); NEUTROPHILS PERCENT AUTO 79 % (41-73); Platelet Count 214 K/mm3 (150-400); RDW Coefficient Variation 21.6 % (11.7-14.2); RDW Standard Deviation 87.6 fL (35.1-46.3); Red Blood Cell Count 2.21 M/mm3 (4.30-5.90); White Blood Cell Count 9.03 K/mm3 (4.00-11.30)
[2019-05-27 11:19] LABS: Albumin, Blood 2.6 g/dL (3.4-5.0); Anion Gap 8 mmol/L (6-16); Blood Urea Nitrogen 55 mg/dL (8-24); Bun/Creatinine Ratio 8.3 (12.0-20.0); CO2, Blood 31 mmol/L (21-32); Calcium, Blood 8.9 mg/dL (8.5-10.1); Chloride, Blood 97 mmol/L (98-108); Creatinine, Blood 6.61 mg/dL (0.60-1.20); Glomerular Filtration Rate 9 (60-); Glucose, Blood 170 mg/dL (70-99); Phosphorus, Blood 3.2 mg/dL (2.5-4.9); Potassium, Blood 4.8 mmol/L (3.5-5.5); Sodium, Blood 136 mmol/L (136-145)
[2019-05-27] MEDS ORDERED: LIVALO2 MG PO (12:48)
[2019-05-27] MEDS ORDERED: SERT100 PO (12:50)
--- NOTE | 2019-05-27 14:07 | NUR ---
Initial Assessment: Report recieved from [facility] ED RN. Patient arrived from the ER via gurney and was slid over to the bed. Patient is alert and oritented, CHEESH-NA. Daughter at bedside. Patient denies pain at this time. HRR, SR per telemetry. LS CTA, pt is SOB with exertion. Biox WNL on 2L via NC. Daughter reports the oxygen is new from Saturday. Daughter reports pt has been at SNF for a week and they haven't been having him walk or participate in rehab. She states she thinks that the pt got weaker at rehab instead of stronger. BT+. Patient has peritoneal dialysis port to left upper quadrant, it is dressed with gauze and a clear tagaderm dressing. CDI. Patient has fistula in his left FA. Left forearm is visibly more swollen then right. Fistula has + Bruit/Thrill. Left arm is warm to the touch. When asked about the swelling, pt states the left arm began to swell when they began using the dialysis fistula. Per patient and daughter patient normally is on peritoneal dialysis and does hemodialysis when needed to keep fluid balanced. Patient has dependent edema to abdomen, approx 2+. BLE with dry flaky skin. BLE from mid silva down has a brown discoloration. PPP. Patient has ospina that was placed at [facility]. Pt states his ospina is changed once a month at [facility]. Coccyx area a redish/purplish color, blanchable. Patient states he has had wounds on his coccyx in the past. VSS. Admission HX reviewed with patient and daughter. Patient oriented to room and call light. Will continue to monitor.
--- NOTE | 2019-05-27 16:00 | NUR ---
ASSESSMENT: UNCHANGED FROM INITIAL ASSESSMENT. VSS. PT WAS ABLE TO AMBULATE TO BATHROOM WITH FWW WITH 1 PERSON ASSIST. PT GOT SOB WITH EXERTION, BIOX REAMAINED WNL ON 2L VIA NC. PT WAS ABLE TO HAVE BM. PT BACK TO BED, DENIES OTHER NEEDS AT THIS TIME.
--- NOTE | 2019-05-27 17:15 | NUR ---
PT TO DIALYSIS VIA WC. TALKED WITH STRUCTURAL METAL FABRICATOR APPRENTICE REGUARDING THE SWELLING IN THE PATIENTS RIGHT ARM, STRUCTURAL METAL FABRICATOR APPRENTICE STATES SHE WILL ADDRESS THIS WITH EDIPHONE OPERATOR. PT WAS ASSISTED TO BED, DENIES OTHER NEEDS AT THIS TIME. WILL CONTINUE TO MONITOR.
[2019-05-27] MEDS ORDERED: ACET500 PO (17:19)
[2019-05-27] MEDS ORDERED: ATOR40TA PO (17:20)
[2019-05-27] MEDS ORDERED: DOCU100 PO (17:23)
[2019-05-27] MEDS ORDERED: FERSU300 PO (17:24)
[2019-05-27] MEDS ORDERED: Ipratropium Bro30 ML (17:25)
[2019-05-27] MEDS ORDERED: GABA100 PO (17:26)
[2019-05-27] MEDS ORDERED: Rena-Vite Tabl0.8 MG PO (17:28)
[2019-05-27] MEDS ORDERED: ONDA4 PO (17:29)
[2019-05-27] MEDS ORDERED: Nitroglycerin0.4 MG SL (17:30)
--- NOTE | 2019-05-27 18:53 | NUR ---
Dialysis Pt Left arm is swollen. Was unable to get venous needle in X1, then infiltrated the second venous needle on starting at 1745. Called in a PCT- second tx initiated at 1825. Running at 200 with 17 gauge needles. pt tollerating run well. Doctor notified.
--- NOTE | 2019-05-27 19:21 | NUR ---
BEHTRWNX-DI-HO DR KING CALLED. DUE TO PROBLEMS WITH ACCESS. PD ORDERED FOR TONIGHT. WILL FINISH HD WITH 2 HOUR PUF TO REMOVE FLUID AND GIVE PRBC. THEN WILL CONNECT PT TO PD.
--- NOTE | 2019-05-27 19:47 | NUR ---
PATIENT DID WELL SINCE ARRIVAL TO PCU. PT WAS ABLE TO AMBULATE IN ROOM WITH ASSIST AND FWW. PT IS CURRENTLY DOWN IN DIALYSIS, RECIEVING 2U PRBC'S. NO ACUTE CHANGES THIS SHIFT. REPORT GIVEN TO EAN STEVENS RN.
--- NOTE | 2019-05-27 21:53 | NUR ---
DIALYSIS-PD PT RETURNED TO ROOM FROM DIALYSIS. TOOK PD MACHINE AND SUPPLIES DONE TO THE ROOM. CLEANED PT SITE, SL RED. NEW DRESSING PER PROTOCAL. CONNECTED PT AT 2140 TO PD PER PROTOCAL. 12 HOUR TX, TOTAL FLUID [id number], 2100 DWELL, 1000 LAST FILL. 12 HR TX WITH 1 HOUR AND 56 MIN DWELLS. FAMILY CAME IN JUST I WAS LEAVING.
[2019-05-27 23:21] LABS: Source, Urine Catheter
[2019-05-27 23:24] LABS: Appearance, Urine Clear (Clear); Bilirubin, Urine Neg (Neg); Blood, Urine 4+ (Neg); Color, Urine Yellow (P-Yellow); Glucose Qualitative, Urine 3+ (Neg); Ketones, Urine Neg (Neg); Leukocyte Esterase, Urine 3+ (Neg); Nitrite, Urine Neg (Neg); Protein, Urine 3+ (Neg); Specific Gravity, Urine 1.015 (1.003-1.022); Urobilinogen, Urine NORM (Normal)
[2019-05-27 23:34] LABS: Bacteria Many /hpf; Red Blood Cells, Urine 0-2 /hpf (0-2); Squamous Epithelial Cells Few /hpf (Few); White Blood Cells, Urine 50-100 /hpf (0-5)
--- NOTE | 2019-05-28 00:30 | NUR ---
ASSUMED CARE ABOUT 2100 FROM DIALYSIS UNIT . TO RM 12. BRUIT + RT FA DSG IN PLACE . ENTIRE ARM VERY SWOLLEN. ELEVATED ON PILLOW. DIRECTOR SALES REVIEWED AND APPLIED PERITONEAL DIALYSIS. COBB. + SHARITA URINE, UA SENT. REVIEWED MEDS AND TX W/ FAMILY AND PT. ALL EXPRESS UNDERSTANDING. APPLE SAUCE W/ PILLS. BILLY WELL. NO APPETITE DUE TO STARTING PERITONEAL DIALYSIS AND STOMACH FEELS FULL. SLOW TO TALK BUT MENTATION CLEAR. QAWALANGIN.
--- NOTE | 2019-05-28 01:19 | NUR ---
OPENING NOTE RECIEVED REPORT FROM DINORAH ADRIAN AND ASSUMED PT CARE. PT IS RESTING IN BED WITH EYES CLOSED AND PERITONEAL DIALYSIS RUNNING. NO ACUTE CONCERNS AT THIS TIME. WILL CONTINUE TO MONITOR AND WILL CONTINUE PLAN OF CARE.
[2019-05-28 04:08] LABS: BASOPHILS ABSOLUTE AUTO 0.07 K/mm3 (0.00-0.23); BASOPHILS PERCENT AUTO 1 % (0-2); EOSINOPHILS ABSOLUTE AUTO 0.33 K/mm3 (0.00-0.68); EOSINOPHILS PERCENT AUTO 4 % (0-6); Hematocrit 32.9 % (37.0-53.0); Hemoglobin 10.6 g/dL (13.5-17.5); IMMATURE GRAN ABSOLUTE AUTO 0.42 K/mm3 (0.00-0.10); IMMATURE GRAN PERCENT AUTO 5 % (0-1); LYMPHOCYTES ABSOLUTE AUTO 0.63 K/mm3 (0.84-5.20); LYMPHOCYTES PERCENT AUTO 8 % (21-46); MONOCYTES ABSOLUTE AUTO 0.69 K/mm3 (0.16-1.47); MONOCYTES PERCENT AUTO 9 % (4-13); Mean Corpuscular HGB 32.9 pg (26.0-34.0); Mean Corpuscular HGB Conc 32.2 g/dL (31.5-36.5); Mean Platelet Volume 8.9 fL (9.1-12.4); NEUTROPHILS ABSOLUTE AUTO 5.71 K/mm3 (1.96-9.15); NEUTROPHILS PERCENT AUTO 73 % (41-73); Platelet Count 213 K/mm3 (150-400); RDW Coefficient Variation 23.3 % (11.7-14.2); RDW Standard Deviation 82.9 fL (35.1-46.3); Red Blood Cell Count 3.22 M/mm3 (4.30-5.90); White Blood Cell Count 7.85 K/mm3 (4.00-11.30)
[2019-05-28 04:11] LABS: Mean Corpuscular Volume 102 fL (80-100)
[2019-05-28 04:22] LABS: Bun/Creatinine Ratio 8.3 (12.0-20.0); Calcium, Blood 9.2 mg/dL (8.5-10.1); Creatinine, Blood 6.17 mg/dL (0.60-1.20); Magnesium, Blood 2.1 mg/dL (1.6-2.4); Phosphorus, Blood 4.2 mg/dL (2.5-4.9); Potassium, Blood 4.6 mmol/L (3.5-5.5)
[2019-05-28 04:34] LABS: BAND PERCENT MAN 3 % (0-8); BASOPHILS ABSOLUTE MAN 0.07 K/mm3 (0.00-0.23); BASOPHILS PERCENT MAN 1 % (0-2); EOSINOPHILS ABSOLUTE MAN 0.15 K/mm3 (0.00-0.68); EOSINOPHILS PERCENT MAN 2 % (0-6); LYMPHOCYTES ABSOLUTE MAN 0.78 K/mm3 (0.84-5.20); LYMPHOCYTES PERCENT MAN 10 % (21-46); MONOCYTES ABSOLUTE MAN 0.62 K/mm3 (0.16-1.47); MONOCYTES PERCENT MAN 8 % (4-13); MYELOCYTE ABSOLUTE MAN 0.23 K/mm3 (0.00-0.00); MYELOCYTE PERCENT MAN 3 % (0-0); NEUTROPHILS ABSOLUTE MAN 5.96 K/mm3 (1.96-9.15); SEG NEUTROPHILS PERCENT MAN 73 % (41-73); TOTAL CELLS COUNTED 100
--- NOTE | 2019-05-28 06:46 | NUR ---
PT HAS RESTED WELL THROUGH SHIFT, DENIES COMPLAINTS. LETHARGIC BUT AWAKENS EASILY TO VOICE, ANSWERS QUESTIONS APPROPRIATELY. ABLE TO SWALLOW PILLS WHOLE IN APPLESAUCE. TURNED Q 2 HOURS TO PREVENT SKIN BREAKDOWN. PT IS ABLE TO MAKE MINOR ADJUSTMENTS BUT IS TOO WEAK TO FULLY TURN SELF. OVERALL STATUS: UNCHANGED R/T VOLUME OVERLOAD IN DIALYSIS PATIENT. NO ACUTE CONCERNS. WILL REPORT OFF TO DAY SHIFT RN.
--- NOTE | 2019-05-28 10:40 | NUR ---
DIALYSIS-PD 1030 DC'ED PD PER PROTOCAL. ID [id number], UF [id number]. FLUID CLEAR. DR KING NOTIFIED
--- NOTE | 2019-05-28 14:56 | NUR ---
Bowen sat up in the chair next to the bed all morning, for both breakfast and lunch. He walked with me into the bathroom to have a bowel movment (IT WAS LOOSE); despite Colace being held both today and yesterday, per pt request. He is weak, and takes slow, shuffling steps, but walks with minimal assistance using the walker and keeping oxgyen on at 2 l/min. He requires moderate assistance to get up from a seated postion, using the gait belt. He has a tendency to lean backwards when seated without any back support. Upper body/core strength is apparently lacking. Appetite has been fair today. No c/o nausea or vomiting. He is back in bed now, appears to be sleeping but awakens easily to verbal stimuli. Second peritoneal dialysis is in progress.
--- NOTE | 2019-05-28 19:19 | NUR ---
DIAYSIS-PD 1425 TOOK SUPPLIES INTO PT ROOM TO DO A DAY EXCHANGE ORDERED BY DR KING. 1-6L 4.25% DIANEAL FOR 4 HOURS, 5500ML TOTAL FLUID, 2100 DWELL VOLUME, 500 LAST FILL. CONNECTED AT 1435 PER PROTOCAL. 1909 TX COMPLETED. DC'ED TX PER PROTOCAL. ID [id number]. UF [id number] ML. PT SAID HE WAS JUST BEGINNING TO CRAMP BEFORE THE END OF THE TX.
--- NOTE | 2019-05-28 20:40 | NUR ---
DIALYSIS-PD CONNECTED TO NIGHT TIME PD TX 2029. [address] [place]. [address] TOTAL FLUID, 2-2.5% DIANEAL 6000L. 2100 DWELL VOLUME, 1000 LAST FILL, 5 EXCHANGES.
--- NOTE | 2019-05-29 04:30 | NUR ---
SHIFT SUMMARY: PATIENT ON PERITONEAL DIALYSIS THIS SHIFT, SLEPT WELL, VSS. PATIENT COMPLIANT WITH CARE, CALL LIGHT WITHIN REACH, BED LOW AND LOCKED.
[2019-05-29 04:50] LABS: BASOPHILS ABSOLUTE AUTO 0.07 K/mm3 (0.00-0.23); BASOPHILS PERCENT AUTO 1 % (0-2); EOSINOPHILS ABSOLUTE AUTO 0.31 K/mm3 (0.00-0.68); EOSINOPHILS PERCENT AUTO 4 % (0-6); Hematocrit 34.5 % (37.0-53.0); IMMATURE GRAN ABSOLUTE AUTO 0.46 K/mm3 (0.00-0.10); IMMATURE GRAN PERCENT AUTO 6 % (0-1); LYMPHOCYTES ABSOLUTE AUTO 0.69 K/mm3 (0.84-5.20); LYMPHOCYTES PERCENT AUTO 10 % (21-46); MONOCYTES ABSOLUTE AUTO 0.73 K/mm3 (0.16-1.47); MONOCYTES PERCENT AUTO 10 % (4-13); Mean Corpuscular HGB 33.1 pg (26.0-34.0); Mean Corpuscular HGB Conc 31.9 g/dL (31.5-36.5); Mean Corpuscular Volume 104 fL (80-100); Mean Platelet Volume 9.1 fL (9.1-12.4); NEUTROPHILS ABSOLUTE AUTO 4.92 K/mm3 (1.96-9.15); NEUTROPHILS PERCENT AUTO 69 % (41-73); Platelet Count 230 K/mm3 (150-400); RDW Coefficient Variation 22.2 % (11.7-14.2); RDW Standard Deviation 81.8 fL (35.1-46.3); Red Blood Cell Count 3.32 M/mm3 (4.30-5.90); White Blood Cell Count 7.18 K/mm3 (4.00-11.30)
[2019-05-29 05:04] LABS: Albumin, Blood 2.8 g/dL (3.4-5.0); Anion Gap 8 mmol/L (6-16); Blood Urea Nitrogen 45 mg/dL (8-24); Bun/Creatinine Ratio 7.1 (12.0-20.0); CO2, Blood 34 mmol/L (21-32); Calcium, Blood 9.7 mg/dL (8.5-10.1); Chloride, Blood 100 mmol/L (98-108); Creatinine, Blood 6.33 mg/dL (0.60-1.20); Glomerular Filtration Rate 9 (60-); Glucose, Blood 147 mg/dL (70-99); Phosphorus, Blood 4.3 mg/dL (2.5-4.9); Potassium, Blood 4.4 mmol/L (3.5-5.5); Sodium, Blood 142 mmol/L (136-145)
[2019-05-29 05:09] LABS: BAND PERCENT MAN 3 % (0-8); BASOPHILS ABSOLUTE MAN 0.07 K/mm3 (0.00-0.23); BASOPHILS PERCENT MAN 1 % (0-2); EOSINOPHILS ABSOLUTE MAN 0.35 K/mm3 (0.00-0.68); EOSINOPHILS PERCENT MAN 5 % (0-6); LYMPHOCYTES ABSOLUTE MAN 0.64 K/mm3 (0.84-5.20); LYMPHOCYTES PERCENT MAN 9 % (21-46); METAMYELOCYTE ABSOLUTE MAN 0.21 K/mm3 (0.00-0.00); METAMYELOCYTE PERCENT MAN 3 % (0-0); MONOCYTES ABSOLUTE MAN 0.64 K/mm3 (0.16-1.47); MONOCYTES PERCENT MAN 9 % (4-13); NEUTROPHILS ABSOLUTE MAN 5.24 K/mm3 (1.96-9.15); SEG NEUTROPHILS PERCENT MAN 70 % (41-73); TOTAL CELLS COUNTED 100
--- NOTE | 2019-05-29 08:00 | NUR ---
PT LAYING IN BED WATCHING TV. A/OX3, PLEASANT AND COOPERATIVE WITH CARE, FOLLOWS COMMANDS WELL, DENIES PAIN, ARMS ARE VERY STIFF, STATES HE SLEPT WELL, LUNG ARE CLEAR IN UPPER MA, DIM IN BASES, RESP EVEN AND UNLABORED, NO COUGH NOTED, HRR, TELE IN PLACE RUNNING SR WITH 1ST DEGREE, HAS EDEMA NOTED TO [facility] WHERE HE HAS A DIALYSIS SHUNT, HAS BEEN THERE AND WE ARE NOT USING THE SHUNT AT THIS TIME, HE IS RECIEVING PERITONEAL DIALYSIS THROUGH THE NIGHT, CATH TO ABD IS CLEAR, NO DRAINAGE OR SWELLING NOTED, BTX4, ABD FLAT SOFT NONTENDER, DOES NOT VOID, SKIN FRAIL, NO WOUNDS, ONE PERSON ASSIST, CALL LIGHT IN REACH.
--- NOTE | 2019-05-29 10:50 | NUR ---
DIALYSIS-PD PT DC'ED FROM PD. FLUID CLEAR. PT HAS NO COMPALAINTS. UF 1500.
--- NOTE | 2019-05-29 18:26 | NUR ---
Dialysis PD Entered room at 1400 with supplies to do a day exchage as ordered by Dr Santiago Set machine up for a 4 hour afternoon run with 1-6L 4.25% Dianel, total fluid of 5500ml, 2100Dwell volume, 500 last ruperto. Connected at 1425 per protocol with no complaints or issuse noted
--- NOTE | 2019-05-29 19:00 | NUR ---
Dialysis PD Pt was connected to the night time PD tx at 1915 with no issues or complaints. 12 [place]. [address] total fluid, 2-2.5% dianeal 6000L. 2100 dwell volume, 1000 last fill, 5 exchanges.
--- NOTE | 2019-05-29 19:09 | NUR ---
PT HAS HAD AN UNEVENTFUL DAY, NO COMPLAINTS, WORKED WITH THERAPY, AND THIS NURSE ASSISTED HIM WITH AMBULATING TO THE BATHROOM, HE HAD A LOT OF DIFFICULTLY GETTING TO A SITTING POSTION, BUT AFTER HE WAS UP HE DID WELL. WILL DO P.D. DURRING THE NIGHT, ADN SOME DURRING THE DAY SHIFT. NO FURTHER CHANGES, CALL LIGHT IN REACH.
--- NOTE | 2019-05-29 19:24 | NUR ---
Dialysis-PD Afternoon 4 hour exchange ID:[id number], UF: [id number], 122. Effluent was clear. Pt tollerated tx well
--- NOTE | 2019-05-29 23:41 | NUR ---
1945 ASSUMED CARE, PATIENT LAYING IN BED C/O BACK PAIN RESOLVED BY REPOSITIONING. SEE [facility] FOR FULL ASSESSMENT, PERITONEAL DIALYSIS IN PROGRESS, DISSCUSSED PLAN FOR THIS SHIFT, CALL LIGHT IN REACH, ALL NEEDS MET AT THIS TIME, WILL MONITOR
[2019-05-30 04:31] LABS: Hematocrit 37.4 % (37.0-53.0); Hemoglobin 11.8 g/dL (13.5-17.5)
[2019-05-30 04:54] LABS: Albumin, Blood 2.9 g/dL (3.4-5.0); Anion Gap 7 mmol/L (6-16); Blood Urea Nitrogen 42 mg/dL (8-24); Bun/Creatinine Ratio 6.7 (12.0-20.0); CO2, Blood 32 mmol/L (21-32); Calcium, Blood 10.2 mg/dL (8.5-10.1); Chloride, Blood 102 mmol/L (98-108); Creatinine, Blood 6.28 mg/dL (0.60-1.20); Glomerular Filtration Rate 9 (60-); Glucose, Blood 135 mg/dL (70-99); Potassium, Blood 4.5 mmol/L (3.5-5.5); Sodium, Blood 141 mmol/L (136-145)
--- NOTE | 2019-05-30 07:34 | NUR ---
PATIENT RESTING COMFORTABLY THIS AM. OVERNIGHT CCPD COMPLETE. PATIENT AESEPTICALLY DISCOINNECTED AND NEW MINI-CAP INSTALLED ON CATHETER. CYCLER STRIPPED AND CLEANED.
--- NOTE | 2019-05-30 15:15 | NUR ---
pt has been discharged to home with family. Dr. Santiago was in to see him. went over discharge instructions with pt. and family, they verbalize understanding. only new medication is a dose change on thyroid, this was called in to [facility] pharmacy. iv removed intact. left via wheelchair with child protection specialist and family in attendence.
[2019-08-06] MEDS ORDERED: CALCIUM ACETAT667 MG PO (15:08)
[2019-08-06] MEDS ORDERED: LEVSOD100 PO (15:09)
[2019-08-10] MEDS ORDERED: NEPHRO-VITE RX1 EACH PO (14:38)
[2019-08-10] MEDS ORDERED: CEFTAZIDIME IV (14:45)
[2019-08-10] MEDS ORDERED: Culturelle1 CAP PO (14:47)
[2019-08-10] MEDS ORDERED: Vitamin D2000 UNIT PO (14:50)
== END 2019-05-30 15:00 | disposition home health service (06) | DRG 280 ==
LOC: ER 10:25 → PCU 13:18
PROVIDERS: Emergency Medicine; ADMIT Internal Medicine
PROC: 30233N1 Transfusion of Nonautologous Red Blood Cells into Peripheral Vein, Percutaneous Approach (ICD-10-PCS; principal; 2019-05-27)
PROC: 5A1D70Z Performance of Urinary Filtration, Intermittent, Less than 6 Hours Per Day (ICD-10-PCS; 2019-05-27)
DX: I13.2 Hypertensive heart and chronic kidney disease with heart failure and with stage 5 chronic kidney disease, or end stage renal disease (principal); N18.6 End stage renal disease; I21.4 Non-ST elevation (NSTEMI) myocardial infarction; I50.31 Acute diastolic (congestive) heart failure; Z79.82 Long term (current) use of aspirin; D63.1 Anemia in chronic kidney disease; I25.10 Atherosclerotic heart disease of native coronary artery without angina pectoris; E03.9 Hypothyroidism, unspecified; E78.5 Hyperlipidemia, unspecified; K21.9 Gastro-esophageal reflux disease without esophagitis; Z96.649 Presence of unspecified artificial hip joint; Z79.02 Long term (current) use of antithrombotics/antiplatelets; M19.90 Unspecified osteoarthritis, unspecified site; E87.70 Fluid overload, unspecified; I48.0 Paroxysmal atrial fibrillation; F41.8 Other specified anxiety disorders; Z99.2 Dependence on renal dialysis; Z96.0 Presence of urogenital implants; B37.9 Candidiasis, unspecified; B96.5 Pseudomonas (aeruginosa) (mallei) (pseudomallei) as the cause of diseases classified elsewhere
CPT/HCPCS: 36415; 36430; 71046; 80048; 80069; 81001; 83735; 83880; 84100; 84145; 84443; 84484; 85014; 85018; 85025; 86850; 86900; 86901; 86923; 87077; 87086; 87186; 93005; 93010; 97110; 97116; 97161; 97166; 97530; 97535; 99285-25; J0881; J1644; P9016

== ENCOUNTER 2019-06-04 17:01 | Emergency (ER) | payer MEDICARE, OTHER ==
[~2019-06-04] VITALS: Ht 165.1 cm; Wt 79.4 kg
[~2019-06-04 17:01] MED LIST changes: +ACET500 PO; +ATOR40TA PO; +Aspir 8181 MG PO; +DOCU100 PO; +FERSU300 PO; +GABA100 PO; +Ipratropium Bro30 ML; +LIVALO2 MG PO; +METO25ER PO; +Nitroglycerin0.4 MG SL; +ONDA4 PO; +Rena-Vite Tabl0.8 MG PO; +SERT100 PO
[2019-06-04 17:24] LABS: BASOPHILS ABSOLUTE AUTO 0.12 K/mm3 (0.00-0.23); BASOPHILS PERCENT AUTO 1 % (0-2); EOSINOPHILS ABSOLUTE AUTO 0.15 K/mm3 (0.00-0.68); EOSINOPHILS PERCENT AUTO 1 % (0-6); Hematocrit 42.3 % (37.0-53.0); Hemoglobin 13.3 g/dL (13.5-17.5); IMMATURE GRAN ABSOLUTE AUTO 0.55 K/mm3 (0.00-0.10); IMMATURE GRAN PERCENT AUTO 4 % (0-1); LYMPHOCYTES ABSOLUTE AUTO 1.14 K/mm3 (0.84-5.20); LYMPHOCYTES PERCENT AUTO 9 % (21-46); MONOCYTES PERCENT AUTO 13 % (4-13); Mean Corpuscular HGB 33.7 pg (26.0-34.0); Mean Corpuscular HGB Conc 31.4 g/dL (31.5-36.5); Mean Platelet Volume 8.7 fL (9.1-12.4); NEUTROPHILS ABSOLUTE AUTO 9.73 K/mm3 (1.96-9.15); NEUTROPHILS PERCENT AUTO 72 % (41-73); NRBC ABSOLUTE 0.04 K/mm3 (0.00-0.02); NRBC Auto 0.3 /100 WBC (0.0-0.2); Platelet Count 308 K/mm3 (150-400); RDW Coefficient Variation 21.3 % (11.7-14.2); Red Blood Cell Count 3.95 M/mm3 (4.30-5.90); White Blood Cell Count 13.49 K/mm3 (4.00-11.30)
[2019-06-04 17:28] LABS: Mean Corpuscular Volume 107 fL (80-100)
[2019-06-04 18:07] LABS: Albumin, Blood 3.7 g/dL (3.4-5.0); Albumin/Globulin Ratio 0.9 (0.8-1.8); Bilirubin, Total 0.8 mg/dL (0.1-1.0); Bun/Creatinine Ratio 6.4 (12.0-20.0); Calcium, Blood 10.6 mg/dL (8.5-10.1); Creatinine, Blood 9.37 mg/dL (0.60-1.20); Globulin, Blood 4.3 g/dL (2.2-4.0); Potassium, Blood 4.7 mmol/L (3.5-5.5)
[2019-06-04 21:10] LABS: Source, Urine Clean Catch
[2019-06-04 21:14] LABS: Appearance, Urine Turbid (Clear); Bilirubin, Urine Neg (Neg); Blood, Urine 5+ (Neg); Color, Urine Yellow (P-Yellow); Glucose Qualitative, Urine Neg (Neg); Ketones, Urine 1+ (Neg); Leukocyte Esterase, Urine 3+ (Neg); Nitrite, Urine Neg (Neg); Protein, Urine 4+ (Neg); Specific Gravity, Urine 1.015 (1.003-1.022); Urobilinogen, Urine NORM (Normal)
[2019-06-04 21:21] LABS: Bacteria Many /hpf; Mucus Light (0-Heavy); Squamous Epithelial Cells Few /hpf (Few); White Blood Cells, Urine TNTC /hpf (0-5)
[2019-06-04] MEDS ORDERED: CEFD300 PO (21:36)
[2019-08-06] MEDS ORDERED: CALCIUM ACETAT667 MG PO (15:08)
[2019-08-06] MEDS ORDERED: LEVSOD100 PO (15:09)
[2019-08-10] MEDS ORDERED: NEPHRO-VITE RX1 EACH PO (14:38)
[2019-08-10] MEDS ORDERED: CEFTAZIDIME IV (14:45)
[2019-08-10] MEDS ORDERED: Culturelle1 CAP PO (14:47)
[2019-08-10] MEDS ORDERED: Vitamin D2000 UNIT PO (14:50)
== END 2019-06-04 22:02 | disposition home or self-care (01) ==
LOC: ER 17:01
PROVIDERS: Emergency Medicine
DX: N39.0 Urinary tract infection, site not specified (principal); I10 Essential (primary) hypertension; Z79.899 Other long term (current) drug therapy
CPT/HCPCS: 71046; 74176; 80053; 81001; 83690; 85025; 87086; 96374; 99284-25; A9270; J2270

== ENCOUNTER 2019-06-07 14:46 | Inpatient (IN) | payer MEDICARE, OTHER ==
[~2019-06-07] VITALS: Ht 165.1 cm; Wt 76.6 kg
[~2019-06-07 14:46] MED LIST changes: +CEFD300 PO
[2019-06-07] MEDS ORDERED: LEVSOD112 PO (15:00)
[2019-06-07] MEDS ORDERED: Vitamin D2000 UNIT PO (15:00)
[2019-06-07] MEDS ORDERED: Atrovent Inha12.9 GM INH (15:00)
[2019-06-07] MEDS ORDERED: SERT100 PO (15:00)
[2019-06-07 15:23] LABS: Hematocrit 45.6 % (37.0-53.0); Hemoglobin 14.3 g/dL (13.5-17.5); Mean Corpuscular HGB 33.6 pg (26.0-34.0); Mean Corpuscular HGB Conc 31.4 g/dL (31.5-36.5); Mean Corpuscular Volume 107 fL (80-100); Mean Platelet Volume 9.2 fL (9.1-12.4); NRBC ABSOLUTE 0.45 K/mm3 (0.00-0.02); NRBC Auto 2.4 /100 WBC (0.0-0.2); Platelet Count 321 K/mm3 (150-400); RDW Coefficient Variation 21.9 % (11.7-14.2); RDW Standard Deviation 81.9 fL (35.1-46.3); Red Blood Cell Count 4.26 M/mm3 (4.30-5.90); White Blood Cell Count 19.02 K/mm3 (4.00-11.30)
[2019-06-07 15:47] LABS: BAND PERCENT MAN 4 % (0-8); BASOPHILS ABSOLUTE MAN 0.57 K/mm3 (0.00-0.23); BASOPHILS PERCENT MAN 3 % (0-2); EOSINOPHILS PERCENT MAN 0 % (0-6); LYMPHOCYTES ABSOLUTE MAN 1.71 K/mm3 (0.84-5.20); LYMPHOCYTES PERCENT MAN 9 % (21-46); METAMYELOCYTE ABSOLUTE MAN 0.19 K/mm3 (0.00-0.00); METAMYELOCYTE PERCENT MAN 1 % (0-0); MONOCYTES ABSOLUTE MAN 2.47 K/mm3 (0.16-1.47); MONOCYTES PERCENT MAN 13 % (4-13); MYELOCYTE ABSOLUTE MAN 0.57 K/mm3 (0.00-0.00); MYELOCYTE PERCENT MAN 3 % (0-0); SEG NEUTROPHILS PERCENT MAN 67 % (41-73); TOTAL CELLS COUNTED 100
[2019-06-07 15:54] LABS: Albumin, Blood 3.7 g/dL (3.4-5.0); Albumin/Globulin Ratio 0.7 (0.8-1.8); Bilirubin, Total 0.6 mg/dL (0.1-1.0); Bun/Creatinine Ratio 6.6 (12.0-20.0); Calcium, Blood 11.1 mg/dL (8.5-10.1); Creatinine, Blood 11.2 mg/dL (0.60-1.20); Potassium, Blood 4.3 mmol/L (3.5-5.5); Total Protein, Blood 8.7 g/dL (6.4-8.2)
[2019-06-07] MEDS ORDERED: Klor-Con M1010 MEQ PO (17:21)
[2019-06-07] MEDS ORDERED: LIVALO2 MG PO (17:22)
[2019-06-07 18:38] LABS: International Normalized Ratio 1.08; Prothrombin Time Results 11.4 Sec (9.7-11.5)
--- NOTE | 2019-06-07 19:44 | NUR ---
PATIENT ARRIVED TO ICU VIA GURNEY FROM ED WITH DX OF GI BLEED. PATIENT AWAKE ANSWERING SIMPLE QUESTIONS AND FOLLOWING DIRECTIONS. PATIENT UNSURE OF PLACE OR DATE. PATIENT TRANSFER TO BED USING SLIDER SHEET AND PLACED ON ICU MONITORS. ADMIT HX OBTAINED FROM PATIENTS DAUGHTER BLAINE. PATIENT HAS PERITONEAL DIALYSIS EVERY NIGHT AT HOME, FOLLOWED BY DOCTOR KING. PD CATH IN PLACE TO LEFT ABD AND CLAMPED. PLAN TO HOLD TONIGHTS PD PER JOSE ADRIAN/ DOCTOR KING. CHRONIC COBB IN PLACE TO A LEG BAG, LEG BAG CHANGED IN ED, PLAN TO CHANGE COBB AND OBTAIN UA WHEN ABLE TO OBTAIN URINE. PATIENTS FAMILY VERBALIZED THAT HE PRODUCES VERY LITTLE URINE AND ONLY NEED TO EMPTY HIS BAG APROX ONCE A WEAK. PATIENT INCONT OF SMALL DIME SIZE BRIGHT RED MUCUS STOOL. DURING ADMIT HISTORY PATIENT C/O NAUSEA MEDICATED WITH ZOFRAN. PROTONIX DRIP INFUSING FROM ED. PLAN TO MONITOR H&H Q6HR. PATIENT ASSISTING WITH REPOSITIONING IN BED, PATIENT FAMILY VERBALIZED PATIENT HAVING INCREASED WEAKNESS OVER THE LAST FEW MONTHS WITH MULTIPLE HOSPITAL ADMITS.
[2019-06-07 20:23] LABS: Campylobacter Sp Not Detected (NOT DETECT)
[2019-06-07 20:24] LABS: Adenovirus F 40/41 Not Detected (NOT DETECT); Astrovirus Not Detected (NOT DETECT); Cryptosporidium Not Detected (NOT DETECT); Cyclospora Cayetanensis Not Detected (NOT DETECT); E. Coli O157 Not Detected (NOT DETECT); Entamoeba Histolytica Not Detected (NOT DETECT); Enteroaggregative E. coli-EAEC Not Detected (NOT DETECT); Enteropathogenic E. coli-EPEC Not Detected (NOT DETECT); Enterotoxigenic E. coli-ETEC Not Detected (NOT DETECT); Giardia Lamblia Not Detected (NOT DETECT); Norovirus GI/GII Not Detected (NOT DETECT); Plesiomonas Shigelloides Not Detected (NOT DETECT); Rotavirus A Not Detected (NOT DETECT); Salmonella Sp Not Detected (NOT DETECT); Sapovirus Not Detected (NOT DETECT); Shiga Toxin-prod E. coli-STEC Not Detected (NOT DETECT); Shigella/Enteroin E. coli-EIEC Not Detected (NOT DETECT); Vibrio Cholerae Not Detected (NOT DETECT); Vibrio Sp Not Detected (NOT DETECT); Yersinia Enterocolitica Not Detected (NOT DETECT)
--- NOTE | 2019-06-07 20:30 | NUR ---
DIALYSIS-PD SPOKE WITH PT'S FAMILY AND DR KING. DR KING DOESN'T WANT ANY DIALYSIS TREATMENTS/PROCEDURES DONE TONIGHT.
[2019-06-07 21:08] LABS: Hematocrit 39.8 % (37.0-53.0); Hemoglobin 12.7 g/dL (13.5-17.5)
[2019-06-08] MEDS ORDERED: ATOR40TA PO (00:26)
[2019-06-08 03:28] LABS: BASOPHILS ABSOLUTE AUTO 0.11 K/mm3 (0.00-0.23); BASOPHILS PERCENT AUTO 1 % (0-2); EOSINOPHILS ABSOLUTE AUTO 0.15 K/mm3 (0.00-0.68); EOSINOPHILS PERCENT AUTO 1 % (0-6); Hematocrit 36.5 % (37.0-53.0); Hemoglobin 11.5 g/dL (13.5-17.5); IMMATURE GRAN ABSOLUTE AUTO 0.61 K/mm3 (0.00-0.10); IMMATURE GRAN PERCENT AUTO 4 % (0-1); LYMPHOCYTES ABSOLUTE AUTO 0.99 K/mm3 (0.84-5.20); LYMPHOCYTES PERCENT AUTO 7 % (21-46); MONOCYTES ABSOLUTE AUTO 1.53 K/mm3 (0.16-1.47); MONOCYTES PERCENT AUTO 11 % (4-13); Mean Corpuscular HGB 33.7 pg (26.0-34.0); Mean Corpuscular HGB Conc 31.5 g/dL (31.5-36.5); Mean Corpuscular Volume 107 fL (80-100); Mean Platelet Volume 9.1 fL (9.1-12.4); NEUTROPHILS ABSOLUTE AUTO 10.86 K/mm3 (1.96-9.15); NEUTROPHILS PERCENT AUTO 76 % (41-73); NRBC ABSOLUTE 0.09 K/mm3 (0.00-0.02); NRBC Auto 0.6 /100 WBC (0.0-0.2); Platelet Count 211 K/mm3 (150-400); RDW Coefficient Variation 21.3 % (11.7-14.2); RDW Standard Deviation 79.8 fL (35.1-46.3); Red Blood Cell Count 3.41 M/mm3 (4.30-5.90); White Blood Cell Count 14.25 K/mm3 (4.00-11.30)
[2019-06-08 03:29] LABS: Hematocrit 36.5 % (37.0-53.0); Hemoglobin 11.4 g/dL (13.5-17.5)
[2019-06-08 03:51] LABS: Magnesium, Blood 2.1 mg/dL (1.6-2.4)
[2019-06-08 03:56] LABS: Albumin, Blood 2.6 g/dL (3.4-5.0); Albumin/Globulin Ratio 0.7 (0.8-1.8); Bilirubin, Total 0.5 mg/dL (0.1-1.0); Bun/Creatinine Ratio 7.2 (12.0-20.0); Creatinine, Blood 10.8 mg/dL (0.60-1.20); Globulin, Blood 3.9 g/dL (2.2-4.0); Potassium, Blood 4.6 mmol/L (3.5-5.5)
[2019-06-08 04:09] LABS: Calcium, Blood 9.1 mg/dL (8.5-10.1); Total Protein, Blood 6.5 g/dL (6.4-8.2)
--- NOTE | 2019-06-08 07:30 | NUR ---
ASSUMED CARE OF PATIENT; SEE ASSESSMENT CHARTING FOR DETAILS. MONITOR NSR WITH RARE ECTOPIC; SBP 90'S TO 100'S BUT MAP MID 60'S TO 70'S. RECEIVING IVF OF NS AT 125ML/HR.; PATIENT REMAINS DEHYDRATED. COBB TO GRAVITY, NO URINE OUTPUT SINCE NEW F/C PLACED ON NIGHTSHIFT. DENIES DISCOMFORT, IF AT REST, BUT TENDER ABD. WHEN PALPATED. PERITONEAL DIALYSIS CATHETER IN PLACE TO ABD. AND CLAMPED. SCD'S FUNCTIONING; NO PERIPHERAL EDEMA. PATIENT SPOKANE BUT HEARING AIDS PLACED; ABLE TO ANSWER QUESTIONS APPROPRIATELY AND IS ORIENTED X4; SLOW TO RESPOND, HOWEVER; APPEARS TO CONTEMPLATE EACH ANSWER HE IS GIVING.
--- NOTE | 2019-06-08 07:43 | NUR ---
SUMMARY PATIENT RESTING QUIETLY AWAKENS TO SLIGHT STIMULI. PENOBSCOT. PATIENT ASSISTS WITH REPOSITIONING IN BED. FISTULA TO RIGHT WRIST WITH GOOD THRILL. COBB CHANGED LAST NIGHT PATIENT CONTINUES TO HAVE NO URINE OUT. PATIENT PASSED SEVERAL BM'S DARK GREEN LOOSE. PATIENT VERY FORGETFUL BUT PLEASANT AND COOPERATIVE.
[2019-06-08 09:06] LABS: Hemoglobin 11.2 g/dL (13.5-17.5)
--- NOTE | 2019-06-08 10:46 | NUR ---
ON/OFF THE BEDPAN SEVERAL TIMES IN A ROW; HAD SOME GREEN/BILE STOOL WITH TAPIOCA TO LOOSE CONSISTENCY; NO S/SX'S OF BLOOD. SEVERAL INCONTINENT/LOOSE STOOLS EARLIER; NOT LARGE AMOUNTS. DAUGHTER AT BEDSIDE AND WANTING SOME TIPS OR INSTRUCTIONS ON HOW TO CLEAN PATIENT AND CHANGE LINENS (FOR WHEN HE COMES HOME AND THEY CARE FOR HIM). RN HAD DAUGHTER OBSERVE PAD CHANGE; PLACEMENT OF BEDPAN (ON./OFF); CLEANSING OF SKIN AND APPLYING MOISTURE BARRIER OINTMENT; V/U.
--- NOTE | 2019-06-08 13:12 | NUR ---
OXYGEN TURNED DOWN TO 1-1/2L/MIN.; BIOX. STAYING 99-100%.
--- NOTE | 2019-06-08 14:58 | NUR ---
[facility] Spiritual Care initial visit: I met with Mr. Johnson's dtr at bedside. She expressed a namita jono in caring/attentive God. She credits her parents for spiritually guiding her as a child. She is also caring for her mother who is showing signs of confusion. She was welcoming of conversation and encouragement. Family is trying to determine best POC. Hospice has been considered. Accoring to dtr, pt has no fear of , but may be trying to "hang-on" for his of 60+ years. I provided gentle eligibility counselor and prayer. I also strongly encouraged she take a break and get some rest. I assured her of excellent care and attetion. Mr. Johnson slept soundly throughout conversation. I will remain available.
--- NOTE | 2019-06-08 15:55 | NUR ---
DR. CARUSO HERE; STATES PATIENT DOES NOT HAVE GI BLEED; OKAY FOR DIET AND CAN D/C PROTONIX DRIP AND CHANGE TO PO PROTONIX; SEE FURTHER ORDERS.
[2019-06-08 16:04] LABS: Hematocrit 36.9 % (37.0-53.0); Hemoglobin 11.4 g/dL (13.5-17.5)
--- NOTE | 2019-06-08 16:30 | NUR ---
T/C TO DR. PANTOJA TO UPDATE ON EVAL. BY DR. CARUSO. PATIENT TO CHANGE TO MED. FLOOR STATUS, NO TELEM. [place] PORRAS FROM DIALYSIS CENTER WAS HOPING PATIENT'S STATUS WOULD CHANGE'; RN LEFT MESSAGE ON HIS VOICE MAIL THAT PATIENT WILL BE MED. FLOOR STATUS.
--- NOTE | 2019-06-08 17:35 | NUR ---
PATIENT TO TRANSFER TO [facility]. FLOOR, ROOM 331. GEMINI CALLED RN FOR REPORT AND REPORT GIVEN. PATIENT WITH MULTIPLE IV ANTIBIOTICS DUE; WILL HAVE MED. FLOOR NURSE INITIATE ONCE FINISHES DINNER AND ARRIVES TO [facility]. FLOOR; IV MAINT FLUID (NS AT 125ML/HR) DISCONNECTED FOR TRANSPORT.
--- NOTE | 2019-06-08 17:48 | NUR ---
TRANSFERRED TO MED. FLOOR, ROOM 331, VIA BED FROM ICU; OXYGEN EQUIPMENT PREPARER AND FAMILY MEMBER ACCOMPANIED PATIENT. BELONGINGS, CHART AND MEDS. SENT WITH PATIENT. MANAGED WELL WITHOUT INCIDENT.
--- NOTE | 2019-06-08 18:22 | NUR ---
RECIEVED PT AT 1815 FROM ICU. PT AO AND ABLE TO HELP TURN MUCH HE CAN. PT HAS A LOOSE BM UPON ARRIVAL. SETTLED INTO ROOM AND IV ANTIBOTICS HOOKED UP WILL CONTINUE TO MONITOR.
--- NOTE | 2019-06-09 00:18 | NUR ---
PATIENT HAS HAS UP TO 7 BOWEL MOVMENTS OF YET, LOOSE GREEN BILE OF COLOR. VERY LITTLE AT A TIME. HE IS UNABLE TO SLEEP DUE TO THIS. CALLED HOSPITALIST AND INFORMED OF CHANGE, GI PANEL WAS ORDERED, NO IMMODIUM UNTIL THE RESULTS ARE BACK PER MD. RIGHT AFTER GETTING OFF PHONE PATIENT HAD BOWEL MOVMENT THEREFORE WAS ABLE TO SEND SAMPLE.
[2019-06-09 02:13] LABS: Adenovirus F 40/41 Not Detected (NOT DETECT); Astrovirus Not Detected (NOT DETECT); Campylobacter Sp Not Detected (NOT DETECT); Cryptosporidium Not Detected (NOT DETECT); Cyclospora Cayetanensis Not Detected (NOT DETECT); E. Coli O157 Not Detected (NOT DETECT); Entamoeba Histolytica Not Detected (NOT DETECT); Enteroaggregative E. coli-EAEC Not Detected (NOT DETECT); Enteropathogenic E. coli-EPEC Not Detected (NOT DETECT); Enterotoxigenic E. coli-ETEC Not Detected (NOT DETECT); Giardia Lamblia Not Detected (NOT DETECT); Norovirus GI/GII Not Detected (NOT DETECT); Plesiomonas Shigelloides Not Detected (NOT DETECT); Rotavirus A Not Detected (NOT DETECT); Salmonella Sp Not Detected (NOT DETECT); Sapovirus Not Detected (NOT DETECT); Shiga Toxin-prod E. coli-STEC Not Detected (NOT DETECT); Shigella/Enteroin E. coli-EIEC Not Detected (NOT DETECT); Vibrio Cholerae Not Detected (NOT DETECT); Vibrio Sp Not Detected (NOT DETECT); Yersinia Enterocolitica Not Detected (NOT DETECT)
[2019-06-09 05:00] LABS: Hematocrit 28.8 % (37.0-53.0); Hemoglobin 9.1 g/dL (13.5-17.5)
--- NOTE | 2019-06-09 05:32 | NUR ---
SHIFT SUMMARY: JEREMY REMAINED COOPERATIVE AND PLEASNT WITH CARE. HE HAS SEVERAL BM IN THE BEGINNING OF THE SHIFT. MD WAS NOTIFIED DUE TO PATIENT NOT BEING ABLE TO SLEEP. BOWEL MOVMENTS ARE A BILE LIKE GREEN TO BROWN COLOR, NO ODER. GI PANEL WAS COLLECTED AND SENT WHICH CAME BACK NEGATIVE FOR EVERYTHING. IV ANTIBOTICS WERE GIVEN LATE AT BEGINNING OF THE SHIFT DUE TO NOT BEING GIVEN PRIOR TO COMING TO THE FLOOR. AFTER STOOL WAS COLLECTED HE WAS ABLE TO SLEEP WITH NO FURTHER BOWEL MOVMENTS. IV FLUIDS REMAINED INFUSING WITH NO PROBLEMS. MEDS WERE GIVEN PER EMAR. CRITICAL VALUE JUST CALLED TO CHARGE NURSE OF CREATINE 11.40 PRIOR LEVELS WERE AROUND THE SAME. HE IS TO HAVE HEMODIALYSIS TODAY. NO CALL TO MD FOR LEVELS. NO FURTHER ACUTE CHANGES TO NOTE THIS SHIFT.
[2019-06-09 05:39] LABS: Albumin, Blood 2.1 g/dL (3.4-5.0); Anion Gap 15 mmol/L (6-16); Blood Urea Nitrogen 85 mg/dL (8-24); Bun/Creatinine Ratio 7.5 (12.0-20.0); CO2, Blood 19 mmol/L (21-32); Calcium, Blood 7.4 mg/dL (8.5-10.1); Chloride, Blood 104 mmol/L (98-108); Glomerular Filtration Rate 5 (60-); Glucose, Blood 103 mg/dL (70-99); Phosphorus, Blood 7.8 mg/dL (2.5-4.9); Potassium, Blood 4.2 mmol/L (3.5-5.5); Sodium, Blood 138 mmol/L (136-145)
[2019-06-09 15:58] LABS: Vancomycin, Random 21.2 ug/mL
--- NOTE | 2019-06-09 17:30 | NUR ---
SHIFT SUMMARY: PT HAS BEEN A/O X 4 THIS SHIFT AND REMAINS [place]. IV FLIUDS INFUSING ORDERED WITH NO ISSUE. PT WENT TO DIALYSIS THIS MORNING AND RETURNED AROUND LUNCH TIME AND WAS ASSISTED TO SET UP HIS TRAY. PT HAS BEEN SAT'ING IN THE HIGH 90'S ON RA THIS AFTERNOON. COBB REMAINS PATENT WITH CLEAR YELLOW URINE OUTPUT. PT CONTINUES TO USE BEDPAN FOR TOILETING AND CALLS FOR HELP NEEDED. FAMILY AT BEDSIDE THIS AFTERNOON.
--- NOTE | 2019-06-09 19:15 | NUR ---
[facility] THERAPY SCHEDULED TONIGHT IN ADDITION TO HEMODIALYSIS TREATMENT THIS AM PER DR KING'S ORDER. CYCLER STRUNG ,PRIMED AND PROGRAMMED PER RX. DIANEAL IS 1.5% TO MINIMIZE UF. EXIT SITE CARE DONE AND NEW STERILE DRESSING APPLIED. EXI WITH SOME CRUSTING BUT NO TENDERNESS OR DISCHARGE. TWO STRAIN RELIEFS APPLIED TO MINIMIZE IRRITATION AT EXIT. THERAPY MONITORED THROUGH INITIAL DRAIN TO OBSERVE PATIENT TOLERANCE. NO DISCOMFORTREPORTED. MED FLOOR STAFF AWARE O OVERNIGHT CCPD IN PROGRESS.
--- NOTE | 2019-06-09 23:29 | NUR ---
ASSUMED CARE OF THE PATIENT AROUND 1909. PATIENT FAMILY IN ROOM AND CONCERNED HE WAS NOT BEING HIMSELF. CONTINUOUS PULSE OX WAS ON AND SOUNDING DUE TO HR BOUNCING ALL OVER THE PLACE FROM 90'S TO 150'S WITH NO SET RATE. HE WAS PALE AND CONTINUED TO GRIMICE. DENIED ANY CHEST PAIN OR PALPITATIONS AT THIS TIME. FAMILY CONCERNED DUE TO HISTORY OF AFIB. ASCULATION OF THE HR WAS VERY IRREGULAR BOUNCING ALL OVER RANGING 100-110. HE REPORTED HE DID NOT FEEL GOOD. FAMILY ALSO CONCERNED THAT HE HAS BEEN MORE CONFUSED TODAY. HE CONTINUED TO GRIMICE OFF AND ON AND JUMP LIKE HE WAS IN PAIN. HE FINALLY WAS ABLE TO REPORT BACK SPASMS WITH DEEP BREATHING. ADJUSTED HIM IN BED. THIS SEEMED TO HELP SLIGHTLY. TYLENOL WAS GIVEN. CHECKED ORDERS FOR CONTINUOUS PULSE OX THIS WAS DC'D A DAY AGO SO REMOVED THIS. FAMILY WANTED TO HAVE HIM ON HEART MONITOR HE IS HAVING DIFFICULTY STATING WHAT IS HAPPENING WITH HIM AT THIS TIME. CONCERNED THAT HE MAY BE HAVING AN EPISODE OF AFIB WHICH IS EFFECTING HIS OUTCOME. MD WAS CONTACTED AND INFORMED OF SPOUTS OF DIARRHEA OFF AND ON STILL, ASKED FOR IMMODIUM, INFORMED OF HEMODYLISIS AND PARITENEOL DYLISIS NOW, HR OF 126 AND STAYING ABOVE 100, POSSIBLE AFIB EPISODE, AND PAIN IN BACK. ORDER FOR IV LOPRESSOR OBTIANED WITH TELEMETRY, 500CC BOLUS OF NS, DR. RYAN WILL PUT A AN ORDER IN FOR LONG ACTING MED WELL. STOPPED ANTIBOTIC ROCHEPHIN AND IMMEDIATLY STARTED A 500 BOLUS FROM THE 1000 LITER BAG HANGING ALREADY. RECEIVED AND PLACED TELE ON AT 2102 HE WAS IRREGULAR HR RUNNING IN 100'S WITH PAC, NO AFIB AT THIS TIME. WAS TOLD HE HAD A LOT OF PAC'S. GAVE IV LOPRESSOR AT 2127 OVER 5 MINUTES, FLUSHED IV AND RESTARTED ANTIBOTIC, HE DENIED ANY SYMTPOMS DURING ADMINISTRATION. INFORMED FAMILY OF EVERY THING THAT WAS GOING ON. CALLED BACK TO DIETARY AID, HE HAD A DECREASE IN RATE BACK TO THE 80'S AND THE PAC'S DECREASED IN AMOUNT. PATIENT REPORTED HE FELT OK AND HAD NO CHEST PAIN OR OTHER CARIDAC PROBLEMS. IV IN LEFT AC CLOTTED AND WAS REMOVED. IV IN LEFT SHOULDER WAS ONE BEING USED. WILL CONTINUE TO MONITOR THE PATIENT.
--- NOTE | 2019-06-10 05:05 | NUR ---
SHIFT SUMMARY: JEREMY HAD AN EPISODE OF IRREGULAR HR AT THE BEGINNING OF THE SHIFT ALONG WITH INCREASE IN CHRONIC PAIN TO THE LOWER BACK. HE STILL HAD DIARRHEA WELL. HE WAS NOT FEELING WELL WHILE ON PARTINEAL DIALYSIS WHILE ALL THIS WAS GOING ON AND HAD A HARD TIME ARTICULATING THIS TO ME. INFORMED MD OF THE CHANGES THAT HAD OCCURED AND NEW ORDERS WERE OBTAINED THAT INCLUDING IV LOPRESSOR AND TELEMETRY. THIS BROUGHT HIS HR FROM 120-140'S DOWN TO 80'S AND RHYTHEM HAD DECREASE IN PAC'S. HE STARTED TO FEEL BETTER AFTER TYELNOL WAS GIVEN FOR HIS PAIN AND HR WAS IMPROVED, HE WAS TIRED AND FELL TO SLEEP SHORTLY AFTER THAT. IV INFUSED IN THE RIGHT SHOULDER WITH NO PROBLEMS, MEDS GIVEN PER EMAR. DIALYSIS RAN WITH NO PROBLEMS THROUGHOUT THE NIGHT. PAIN STAYED CONTROLED. NO FUTHER CHANGES OCCURRED WILL REPORT TO DAY SHIFT RN OF CHANGES.
[2019-06-10 07:56] LABS: Source, Urine Catheter
[2019-06-10 08:01] LABS: Bilirubin, Urine Neg (Neg); Blood, Urine 5+ (Neg); Glucose Qualitative, Urine 2+ (Neg); Ketones, Urine Neg (Neg); Leukocyte Esterase, Urine 3+ (Neg); Nitrite, Urine Neg (Neg); Protein, Urine 4+ (Neg); Urobilinogen, Urine NORM (Normal)
[2019-06-10 08:14] LABS: Appearance, Urine Hazy (Clear); Color, Urine Yellow (P-Yellow)
[2019-06-10 08:17] LABS: Bacteria Many /hpf; Squamous Epithelial Cells Not Seen /hpf (Few); White Blood Cells, Urine TNTC /hpf (0-5); Yeast/Fungi Urine Few /hpf
[2019-06-10 11:09] LABS: BASOPHILS ABSOLUTE AUTO 0.03 K/mm3 (0.00-0.23); BASOPHILS PERCENT AUTO 0 % (0-2); EOSINOPHILS ABSOLUTE AUTO 0.35 K/mm3 (0.00-0.68); EOSINOPHILS PERCENT AUTO 4 % (0-6); Hematocrit 28.4 % (37.0-53.0); Hemoglobin 9.2 g/dL (13.5-17.5); IMMATURE GRAN ABSOLUTE AUTO 0.33 K/mm3 (0.00-0.10); IMMATURE GRAN PERCENT AUTO 4 % (0-1); LYMPHOCYTES ABSOLUTE AUTO 0.45 K/mm3 (0.84-5.20); LYMPHOCYTES PERCENT AUTO 6 % (21-46); MONOCYTES ABSOLUTE AUTO 0.73 K/mm3 (0.16-1.47); MONOCYTES PERCENT AUTO 9 % (4-13); Mean Corpuscular HGB 33.8 pg (26.0-34.0); Mean Corpuscular HGB Conc 32.4 g/dL (31.5-36.5); Mean Platelet Volume 8.8 fL (9.1-12.4); NEUTROPHILS PERCENT AUTO 77 % (41-73); NRBC ABSOLUTE 0.03 K/mm3 (0.00-0.02); NRBC Auto 0.4 /100 WBC (0.0-0.2); Platelet Count 126 K/mm3 (150-400); RDW Coefficient Variation 21.3 % (11.7-14.2); RDW Standard Deviation 77.7 fL (35.1-46.3); Red Blood Cell Count 2.72 M/mm3 (4.30-5.90); White Blood Cell Count 8.19 K/mm3 (4.00-11.30)
[2019-06-10 11:13] LABS: Mean Corpuscular Volume 104 fL (80-100)
[2019-06-10 13:40] LABS: Vancomycin, Random 18.6 ug/mL
--- NOTE | 2019-06-10 15:23 | NUR ---
DIALYSIS-PD TX DC'ED AT 0845. DR KING IN THE ROOM. ID [id number] OUPUT [id number]. DR KING OK WITH RESULTS. PT HAD BEEDN DEHYDRATED.
--- NOTE | 2019-06-10 16:30 | NUR ---
SHIFT SUMMARY: PT IS A/O X 3 THIS SHIFT WITH NO C/O PAIN OR DISCOMFORT. PT WAS SET UP FOR ALL MEALS AND PERITONEAL DIALYSIS WAS COMPLETED BY DIALYSIS NURSE THIS AM. BP WAS SLIGHTLY LOW FIRST THING THIS MORNING AND ORAL FLUIDS WERE GIVEN AND BP WAS WNL UPON RE-CHECK. FAMILY HAS BEEN AT BEDSIDE ALL DAY AND SPOKE WITH CASE MANAGEMENT ABOUT THEIR PLAN FOR DC HOME INSTEAD OF TO A SNF AND THEY HAVE A SAFE DC PLAN IN PLACE. PT WORKED WITH PT AND OT TODAY AND NURSING WAS ABLE TO TRAN[place] [facility] [place] [facility] [place] AND THE THERAPY TEAM WITH BE WORKING WITH PT TOMORROW TO ASSIST WITH TRASNFERRING AND OTHER TASKS TO PREP FOR GOING HOME. PT IS UP TO CHAIR AND USES CALL LIGHT FOR HELP WHEN NEEDED.
--- NOTE | 2019-06-10 19:10 | NUR ---
ASSUMED CARE OF THE PATIENT. HE WAS IN HIS CHAIR, AND REPORTED HE HAD TO USE THE COMMODE. WITH 2 PERSON ASSIST WAS ABLE TO TRANSFER HIM TO THE COMMODE BUT HE ALREADY HAD BEEN GOING. ATTENDS WAS SATURATED WITH RUNNY BROWN STOOL. ONCE ONTO THE COMMODE WAS ABLE TO CLEAN HIM UP MUCH POSSIBLE. THEN HE WENT SOMEMORE. AFTER COMMODE HE WAS CLEANED UP AND TRANSFERRED TO THE BED. WHERE IT WAS NOTED HE WAS VERY RAW IN THE GROIN AND TO THE BOTTOM AREA. BARRIER CREAM WAS APPLIED, ALONG WITH DRY ATTENDS. LUNG SOUNDS ARE CLEAR BUT DIMINISHED THROUGHOUT. HR IRREGULAR, TELE IN PLACE. DENIED ANY CHEST PAIN OR SOB. WEAKNESS NOTED THROUGHOUT. WILL CONTINUE TO MONITOR.
--- NOTE | 2019-06-10 20:51 | NUR ---
DIALYSIS-PD PT CONNECTED TO TX PER PROTOCAL. PT WATCHING TV, QUIET. SITE CLEAR. FLUID CLEAR.
--- NOTE | 2019-06-11 05:52 | NUR ---
SHIFT SUMMARY: JEREMY WAS UP IN HIS CHAIR AT BEGINING OF THE SHIFT. HE HAD A LARGE BOWEL MOVMENT LOOSE, THEN HE WAS PUT TO BED. P-DYALSIS WAS STARTED ON HIM. SHORTLY HE SLEPT WELL THROUGHOUT THE NIGHT WITH NO COMPLAINTS. URINE OUTPUT STILL VERY SCANT DROPS IN THE CATHETER, NO OTHER BM WERE NOTED AFTER IMMODIUM WAS GIVEN. IV INFUSED WITH NO PROBLEMS FOR ANTIBOTIC AND FLUIDS. MEDS WERE GIVEN PER EMAR. NO OTHER ACUTE CHANGES WERE NOTED. WILL REPORT TO DAY SHIFT RN.
[2019-06-11 05:54] LABS: Albumin, Blood 2.1 g/dL (3.4-5.0); Anion Gap 11 mmol/L (6-16); Blood Urea Nitrogen 42 mg/dL (8-24); Bun/Creatinine Ratio 5.9 (12.0-20.0); CO2, Blood 26 mmol/L (21-32); Calcium, Blood 7.6 mg/dL (8.5-10.1); Chloride, Blood 101 mmol/L (98-108); Creatinine, Blood 7.14 mg/dL (0.60-1.20); Glomerular Filtration Rate 8 (60-); Glucose, Blood 114 mg/dL (70-99); Phosphorus, Blood 4.3 mg/dL (2.5-4.9); Potassium, Blood 3.1 mmol/L (3.5-5.5); Sodium, Blood 138 mmol/L (136-145)
--- NOTE | 2019-06-11 11:10 | NUR ---
DIALYSIS-PD 0820 WENT TO ROOM AND LOW UF ALARM WAS ON. NOT REPORTED TO THE FIGURE SKATER. RESET AND LEFT THE ROOM. 904 RETURNED. TX COMPLETED [id number], ID -[id number]. SOLUTION CLEAR. TX DC'ED PER PROTOCAL.SITE CLEAR.
--- NOTE | 2019-06-11 14:48 | NUR ---
PATIENT TO DISCHARGE HOME WITH FAMILY. READ D/C INFO TO FAMILY. INFORMED THEM TO FOLLOW UP WITH DR. JOHNSON FOR AN APPOINTMENT AND INFORMED OF THE APPOINTMENTS SCHEDULED WITH DR. LOVE AND DR. KING.
--- NOTE | 2019-06-11 15:25 | NUR ---
Review of case with hospice liason on patients wishes and plan of care.
--- NOTE | 2019-06-11 16:08 | NUR ---
SHIFT SUMMARY PATIENT TO DISCHARGE HOME WITH FAMILY. NO ACUTE ISSUES NOTED.
[2019-08-06] MEDS ORDERED: CALCIUM ACETAT667 MG PO (15:08)
[2019-08-06] MEDS ORDERED: LEVSOD100 PO (15:09)
[2019-08-10] MEDS ORDERED: NEPHRO-VITE RX1 EACH PO (14:38)
[2019-08-10] MEDS ORDERED: CEFTAZIDIME IV (14:45)
[2019-08-10] MEDS ORDERED: Culturelle1 CAP PO (14:47)
[2019-08-10] MEDS ORDERED: Vitamin D2000 UNIT PO (14:50)
== END 2019-06-11 17:06 | disposition home or self-care (01) | DRG 73 ==
LOC: ER 14:46 → ICUE 18:17 → ICUW 18:17 → UNDODEPER 19:44 → ICUE 19:44 → ER 19:44 → MEDS 06-08 17:46
PROVIDERS: Hospitalist; Internal Medicine; Internal Medicine Gastroenterology; ADMIT Internal Medicine
PROC: 3E1M39Z Irrigation of Peritoneal Cavity using Dialysate, Percutaneous Approach (ICD-10-PCS; principal; 2019-06-09)
DX: E11.43 Type 2 diabetes mellitus with diabetic autonomic (poly)neuropathy (principal); G93.41 Metabolic encephalopathy; N18.6 End stage renal disease; I12.0 Hypertensive chronic kidney disease with stage 5 chronic kidney disease or end stage renal disease; R65.10 Systemic inflammatory response syndrome (SIRS) of non-infectious origin without acute organ dysfunction; R09.02 Hypoxemia; E11.22 Type 2 diabetes mellitus with diabetic chronic kidney disease; Z99.2 Dependence on renal dialysis; I25.10 Atherosclerotic heart disease of native coronary artery without angina pectoris; Z95.5 Presence of coronary angioplasty implant and graft; I48.0 Paroxysmal atrial fibrillation; F32.9 Major depressive disorder, single episode, unspecified; K31.84 Gastroparesis; I95.9 Hypotension, unspecified; D63.1 Anemia in chronic kidney disease; K21.9 Gastro-esophageal reflux disease without esophagitis; E03.9 Hypothyroidism, unspecified; E78.5 Hyperlipidemia, unspecified; E66.9 Obesity, unspecified; I25.2 Old myocardial infarction; Z66 Do not resuscitate; K64.9 Unspecified hemorrhoids; E87.6 Hypokalemia
CPT/HCPCS: 0097U; 36415; 51702; 71045; 71046; 74176; 80053; 80069; 80202; 81001; 82947; 83605; 83690; 83735; 84145; 85014; 85018; 85025; 85610; 85730; 86850; 86900; 86901; 87040; 87077; 87086; 87186; 93005; 93010; 94640; 94760; 96361; 96365; 96367; 96375; 97110; 97116; 97161; 97166; 97530; 97535; 99285-25; A9270; C9113; J0456; J2405; J2543; J3370; J7030; J7040; J7050; J7120

== ENCOUNTER 2019-08-06 11:08 | Inpatient (IN) | payer MEDICARE, OTHER ==
[~2019-08-06] VITALS: Ht 165.1 cm; Wt 83.5 kg
[~2019-08-06 11:08] MED LIST changes: +Atrovent Inha12.9 GM INH; +Klor-Con M1010 MEQ PO; +Vitamin D2000 UNIT PO
[2019-08-06 12:09] LABS: Hematocrit 20.8 % (37.0-53.0); Hemoglobin 6.9 g/dL (13.5-17.5); Mean Corpuscular HGB 38.3 pg (26.0-34.0); Mean Corpuscular HGB Conc 33.2 g/dL (31.5-36.5); Mean Corpuscular Volume 116 fL (80-100); Mean Platelet Volume 8.9 fL (9.1-12.4); Platelet Count 196 K/mm3 (150-400); RDW Coefficient Variation 20.3 % (11.7-14.2); RDW Standard Deviation 85.1 fL (35.1-46.3); White Blood Cell Count 11.24 K/mm3 (4.00-11.30)
[2019-08-06 12:36] LABS: Albumin/Globulin Ratio 0.8 (0.8-1.8); Bilirubin, Total 0.4 mg/dL (0.1-1.0); Bun/Creatinine Ratio 7.7 (12.0-20.0); Calcium, Blood 8.3 mg/dL (8.5-10.1); Creatinine, Blood 7.82 mg/dL (0.60-1.20); Globulin, Blood 3.6 g/dL (2.2-4.0); Potassium, Blood 3.7 mmol/L (3.5-5.5); Total Protein, Blood 6.6 g/dL (6.4-8.2)
[2019-08-06 12:44] LABS: BAND PERCENT MAN 6 % (0-8); BASOPHILS PERCENT MAN 0 % (0-2); EOSINOPHILS ABSOLUTE MAN 0.44 K/mm3 (0.00-0.68); EOSINOPHILS PERCENT MAN 4 % (0-6); LYMPHOCYTES ABSOLUTE MAN 1.23 K/mm3 (0.84-5.20); LYMPHOCYTES PERCENT MAN 11 % (21-46); METAMYELOCYTE ABSOLUTE MAN 0.11 K/mm3 (0.00-0.00); METAMYELOCYTE PERCENT MAN 1 % (0-0); MONOCYTES ABSOLUTE MAN 0.22 K/mm3 (0.16-1.47); MONOCYTES PERCENT MAN 2 % (4-13); MYELOCYTE ABSOLUTE MAN 0.11 K/mm3 (0.00-0.00); MYELOCYTE PERCENT MAN 1 % (0-0); SEG NEUTROPHILS PERCENT MAN 75 % (41-73); TOTAL CELLS COUNTED 100
[2019-08-06] MEDS ORDERED: CALCIUM ACETAT667 MG PO ×2 (15:08)
[2019-08-06] MEDS ORDERED: LEVSOD100 PO ×2 (15:09)
[2019-08-06 16:36] LABS: International Normalized Ratio 1.03; Prothrombin Time Results 10.9 Sec (9.7-11.5)
--- NOTE | 2019-08-06 18:16 | NUR ---
pt alert having more fatigue and his eyes are painfull and itching he denies constipation or increasing pain. just weakness. His family is out of town grandson careing for him. eye care given and supportive conversation and care. pt has been asked many many times about his code status and is distraught by repeated conversations. did not speak with him about care needs. review of pt with dialysis team and Will see what Dr Santiago advises.
[2019-08-06 18:51] LABS: Source, Urine Catheter
[2019-08-06 18:59] LABS: Bilirubin, Urine Neg (Neg); Blood, Urine 5+ (Neg); Glucose Qualitative, Urine Neg (Neg); Ketones, Urine 1+ (Neg); Leukocyte Esterase, Urine 3+ (Neg); Nitrite, Urine Neg (Neg); Protein, Urine 3+ (Neg); Urobilinogen, Urine NORM (Normal)
[2019-08-06 19:10] LABS: Appearance, Urine Bloody (Clear); Color, Urine Red (P-Yellow)
[2019-08-06 19:12] LABS: Bacteria Few /hpf; Red Blood Cells, Urine TNTC /hpf (0-2); Squamous Epithelial Cells Not Seen /hpf (Few); White Blood Cells, Urine 50-100 /hpf (0-5)
--- NOTE | 2019-08-06 19:38 | NUR ---
NON-ROUTINE HOURS CCPD THERAPY INITIATED FOR PATIENT ADMITTED TO [facility] FOR TRANSFUSION. CYCLER STRUNG, PRIMED AND PROGRAMMED PER DR KING'A ORDERS. 6L 1.5% AND 6L 2.5% UTILIZED ORDERED. WHEN PRIME COMPLETE, PT AESEPTICALLY CONNECTED AND THERAPY STARTED. EXIT SITE CARE DONE. EXIT SITE DRY, TIGHT AND NON-TENDER. NEW STERILE DRESSING APPLIED WITH 3 STRAIN RELIEFS. MED FLOOR STAFF AWARE OF CCPD THERAPY IN PROGRESS OVERNIGHT AND ENDING IN AM TOMORROW NEAR SHIFT CHANGE.
[2019-08-06 22:43] LABS: Hematocrit 31.3 % (37.0-53.0); Hemoglobin 10.3 g/dL (13.5-17.5); Mean Corpuscular HGB 34.2 pg (26.0-34.0); Mean Corpuscular HGB Conc 32.9 g/dL (31.5-36.5); Mean Platelet Volume 8.9 fL (9.1-12.4); Platelet Count 160 K/mm3 (150-400); RDW Coefficient Variation 24.6 % (11.7-14.2); Red Blood Cell Count 3.01 M/mm3 (4.30-5.90); White Blood Cell Count 12.08 K/mm3 (4.00-11.30)
[2019-08-06 23:13] LABS: Mean Corpuscular Volume 104 fL (80-100)
--- NOTE | 2019-08-07 04:15 | NUR ---
SHIFT SUMMARY PT RECIEVED BLOOD WITHOUT ISSUE. PT PD WAS STARTED LAST NIGHT BY MECHANICAL MAINTENANCE, [place]. PT HAS BEEN NPO SINCE MIDNIGHT DUE TO POSSIBLE PROCEDURE IN AM. PT HAD BLOODY STOOL ONCE LAST NIGHT. PT HAS SLEPT WITHOUT COMPLAINT T/O THE NIGHT. PT CURRENTLY SLEEPING AND BREATHING EASY. CALL LIGHT IN REACH.
[2019-08-07 04:55] LABS: Hematocrit 25.7 % (37.0-53.0); Hemoglobin 8.6 g/dL (13.5-17.5); Mean Corpuscular HGB 33.2 pg (26.0-34.0); Mean Corpuscular HGB Conc 33.5 g/dL (31.5-36.5); Mean Platelet Volume 8.8 fL (9.1-12.4); Platelet Count 164 K/mm3 (150-400); RDW Coefficient Variation 24.8 % (11.7-14.2); RDW Standard Deviation 85.3 fL (35.1-46.3); Red Blood Cell Count 2.59 M/mm3 (4.30-5.90); White Blood Cell Count 11.14 K/mm3 (4.00-11.30)
[2019-08-07 05:00] LABS: Mean Corpuscular Volume 99 fL (80-100)
[2019-08-07 05:26] LABS: Albumin, Blood 2.8 g/dL (3.4-5.0); Anion Gap 11 mmol/L (6-16); Blood Urea Nitrogen 60 mg/dL (8-24); Bun/Creatinine Ratio 7.7 (12.0-20.0); CO2, Blood 28 mmol/L (21-32); Calcium, Blood 8.3 mg/dL (8.5-10.1); Chloride, Blood 99 mmol/L (98-108); Creatinine, Blood 7.78 mg/dL (0.60-1.20); Glomerular Filtration Rate 7 (60-); Glucose, Blood 126 mg/dL (70-99); Phosphorus, Blood 6.9 mg/dL (2.5-4.9); Potassium, Blood 3.9 mmol/L (3.5-5.5); Sodium, Blood 138 mmol/L (136-145)
[2019-08-07 05:28] LABS: BAND PERCENT MAN 3 % (0-8); BASOPHILS PERCENT MAN 0 % (0-2); EOSINOPHILS PERCENT MAN 0 % (0-6); LYMPHOCYTES ABSOLUTE MAN 0.55 K/mm3 (0.84-5.20); LYMPHOCYTES PERCENT MAN 5 % (21-46); METAMYELOCYTE ABSOLUTE MAN 0.22 K/mm3 (0.00-0.00); METAMYELOCYTE PERCENT MAN 2 % (0-0); MONOCYTES ABSOLUTE MAN 0.44 K/mm3 (0.16-1.47); MONOCYTES PERCENT MAN 4 % (4-13); MYELOCYTE ABSOLUTE MAN 0.55 K/mm3 (0.00-0.00); MYELOCYTE PERCENT MAN 5 % (0-0); NEUTROPHILS ABSOLUTE MAN 9.35 K/mm3 (1.96-9.15); SEG NEUTROPHILS PERCENT MAN 81 % (41-73); TOTAL CELLS COUNTED 100
--- NOTE | 2019-08-07 10:35 | NUR ---
DIALYSIS-PD PT ASLEEP WHEN I ENTERED HIS ROOM. SAID HE IS FEELING BETTER. DC'ED CATH FROM VITA KO. ID [id number]. UF [id number]. FLUID CLEAR. SITE CLEAR.
--- NOTE | 2019-08-07 11:53 | NUR ---
History, Chart, Medications and Allergies reviewed before start of procedure. Lungs clear T/O to Auscultation. Patient confirms NPO status and agrees with scheduled surgery. Pre-Op teaching done. Pt verbalizes understanding.
--- NOTE | 2019-08-07 12:32 | NUR ---
08/07/19 1231 Diana Zhang MONITOR INTACT WITH CONTINUOUS PULSE OXIMETRY AND INTERMITTENT BP.
[2019-08-07 15:18] LABS: Gentamicin, Random 3.8 ug/Ml
--- NOTE | 2019-08-07 18:20 | NUR ---
SHIFT SUMMARY PT HAD THREE BM THIS SHIFT, BROWN WITH SLIGHT REDDISH TINT. COBB FLUSHED PER ORDER, NO CLOTS NOTED, OUTPUT VERY RED AND LOW URINE OUTPUT. HAD EGD, NOTHING FOUND, PLAN TO HAVE COLONOSCOPY TOMORROW. PT ON CLEARS, AND NPO AT SD. PT AWARE. 1.5 HOURS AFTER RETURNING, HE HAD ASPIRATION EVENT ON HIS FOOD. O2 IN UPPER 80S, HR 130S, COUGHING VIGOROUSLY. RECOVERED WITHIN 5 MINUTES. PUT ON ASPIRATION PRECAUTIONS. 1-2 ASSIST TO BSC. PT AND OT SAW, RECS HH, PT DECLINING AT THIS POINT. FAMILY VISITED. TELE SHOWED SWITCHING BACK AND FORTH FROM NSR TO AFIB AND BACK. WHEN IN AFIB, KEPT RATE OF 70S OR SO. WHEN UP OOB, HE IS SOB AND TACHY AROUND 125. PER TURBINE TECHNICIAN, THIS IS EITHER ST OR 1:1 FLUTTER. KIDNEY U/S DONE TODAY, NO BLOCKAGES. WOUND ON COCCYX CLEANED AND REDRESSED, ENCOURAGED PT TO MOVE AROUND IN BED AND TURNED AND GOT UP SEVERAL TIMES. TOOK MEDS PRESCRIBED. DENIED PAIN. CALL LIGHT IN REACH, [facility] CALLED DR HAAS [id number] AND TOLD OF ASPIRATION EVENT AND OF TACHYCARDIA WHEN UP, HE ORDERED ST EVAL AND STAT CXR.
--- NOTE | 2019-08-07 21:29 | NUR ---
DIALYSIS-PD PT IS HAVING A PROCEDURE DONE TOMORROW AM. CHANGED HIS RX TO 0 LAST FILL FOR THE PROCEDURE. CONNECTED PT TO PD PER PROTOCAL. REPORTED TO HIS NIGHT NURSE. PT TAKING GOLYTELY FOR THE PROCEDURE. REMINDED TO BE CAREFUL OF PD LINES
[2019-08-08 04:58] LABS: Hematocrit 28.2 % (37.0-53.0); Hemoglobin 9.2 g/dL (13.5-17.5); Mean Corpuscular HGB 33.5 pg (26.0-34.0); Mean Corpuscular HGB Conc 32.6 g/dL (31.5-36.5); Mean Platelet Volume 9.2 fL (9.1-12.4); Platelet Count 188 K/mm3 (150-400); RDW Coefficient Variation 25.2 % (11.7-14.2); RDW Standard Deviation 90.2 fL (35.1-46.3); Red Blood Cell Count 2.75 M/mm3 (4.30-5.90); White Blood Cell Count 12.64 K/mm3 (4.00-11.30)
[2019-08-08 05:02] LABS: Mean Corpuscular Volume 103 fL (80-100)
[2019-08-08 05:29] LABS: BASOPHILS ABSOLUTE MAN 0.25 K/mm3 (0.00-0.23); BASOPHILS PERCENT MAN 2 % (0-2); EOSINOPHILS ABSOLUTE MAN 0.37 K/mm3 (0.00-0.68); EOSINOPHILS PERCENT MAN 3 % (0-6); LYMPHOCYTES ABSOLUTE MAN 0.88 K/mm3 (0.84-5.20); LYMPHOCYTES PERCENT MAN 7 % (21-46); METAMYELOCYTE PERCENT MAN 4 % (0-0); MONOCYTES ABSOLUTE MAN 0.37 K/mm3 (0.16-1.47); MONOCYTES PERCENT MAN 3 % (4-13); MYELOCYTE ABSOLUTE MAN 0.37 K/mm3 (0.00-0.00); MYELOCYTE PERCENT MAN 3 % (0-0); NEUTROPHILS ABSOLUTE MAN 9.85 K/mm3 (1.96-9.15); SEG NEUTROPHILS PERCENT MAN 78 % (41-73); TOTAL CELLS COUNTED 100
[2019-08-08 05:39] LABS: Albumin, Blood 2.9 g/dL (3.4-5.0); Anion Gap 14 mmol/L (6-16); Blood Urea Nitrogen 49 mg/dL (8-24); Bun/Creatinine Ratio 6.6 (12.0-20.0); CO2, Blood 28 mmol/L (21-32); Calcium, Blood 8.5 mg/dL (8.5-10.1); Chloride, Blood 98 mmol/L (98-108); Glomerular Filtration Rate 8 (60-); Glucose, Blood 129 mg/dL (70-99); Magnesium, Blood 1.8 mg/dL (1.6-2.4); Phosphorus, Blood 6.4 mg/dL (2.5-4.9); Potassium, Blood 3.9 mmol/L (3.5-5.5); Sodium, Blood 140 mmol/L (136-145)
--- NOTE | 2019-08-08 07:22 | NUR ---
SHIFT SUMMARY PT IS AN 83 Y/O MALE, ADMITTED FOR ANEMIA POSSIBLY R/T A GI BLEED. PT IS A&O X 3, AND A 1-2PA TO THE BSC. PT DENIED ANY COMPLAINTS OF PAIN, NAUSEA OR SOB DURING THE NIGHT. HE HAS BEEN NPO SINCE MIDNIGHT IN PREP FOR A COLONOSCOPY TODAY. HE IS ALSO ON PERITONEAL DIALYSIS, AND HAD DIALYSIS RUNNING THROUGH THE NIGHT. VITAL SIGNS WERE STABLE. PER SPEARER PT RUNS BETWEEN NSR, AFIB AND AFLUTTER WITH VARIABLE RATES DEPENDING ON THE RHYTHM. NO OTHER ACUTE CHANGES IN PT CONDITION NOTED DURING THE NIGHT. REPORT GIVEN TO ONCOMING RN.
--- NOTE | 2019-08-08 07:41 | NUR ---
PD DISCONNECT PT WAS DISCONNECTED PER STERILE TECHNIQUE PER PROTOCOL. DRESSING WAS CHANGED, SITE WAS CLEANED AND EVALUATED, ANIBIOTIC OINMENT WAS APPLIED TO BANDAGED AREA. NO DISCHARGE NOTED, BUT SLIGHT REDNESS, NO SWELLING. THE CATHETER WAS SECURED USING TWO ANCORS. EFFLUENT WAS CLEAR IN COLOR. IDV:[id number] ML. TOTAL UF:[id number] ML. AVD DWELL TIME 1:41. LAST DWELL 0:19. PT PREPARING FOR A PROCEDURE THIS AM. WILL RETURN THIS EVENING TO RE-EVALUATE AND CONNECT FOR NEXT PD TX.
--- NOTE | 2019-08-08 09:16 | NUR ---
08/08/19 0916 Diana Zhang PROCEDURE DONE IN ENDO ROOM #1.
--- NOTE | 2019-08-08 12:26 | NUR ---
DR PHELPS ORDER BLADDER IRRIGATION. COBB CATH D/C & NEW 3 WAY 18FR COBB PLACED. URINE BURGUNDY W/O CLOTS. PT EDUCATED ON NEED. BILLY WELL.
--- NOTE | 2019-08-08 17:18 | NUR ---
SUMMARY PT WENT OUT THIS AM FOR COLONOSCOPY w DR CARUSO, NO SOURCE OF BLEEDING REPOORTED. DR PHELPS NOTIFIED. HE ORDER BLADDER IRRIGATION R/T BLOODY URINE OUTPUT, 3 WAY COBB PLACED & IRRIGATION STARTED. DR SAEED IV ANTIBX. STATE PT MAY NEED PICC FOR OUTPT ANTIBX TX WHEN APPROP FOR D/C. H&H 9.2/28.2 THIS AM. PT IS A/O X4, PLEASANT AFFECT. HX ESRD, PERITONEAL DIALYSIS @ NOC. VSS. ST LUBIN TODAY, PLACED HIM ON [facility] SOFT RENAL DIET.
--- NOTE | 2019-08-08 21:37 | NUR ---
PD TREATMENT CLEANED CATHETER PRE PROTOCOL NO DRAINAGE, SWELLING OR REDNESS NOTED. SET UP MACHINE, CONNECTED PT TO THE CYCLER. GAVE REPORT TO THE NURSE. EDUCACTED NURSE HOW TO TROUBLE SHOOT ALARMS AND LEFT HER MY PHONE NUMBER INCASE OF AN UNCLEARED ALARM. GAVE REPORT TO ONCOMING NURSE FOR NEXT SHIFT.
--- NOTE | 2019-08-09 07:15 | NUR ---
OVERNIGHT CCPD WAS INTERUPTED BY MACHINE ERROR LAST NIGHT. CONSEQUENTLY, THERAPY WAS DELAYED AND REQUIRED RESTART THIS MORNING. THERAPY WILL BE COMPLETED AT APPROXIMTELY NOON.
[2019-08-09 07:20] LABS: Magnesium, Blood 1.9 mg/dL (1.6-2.4)
--- NOTE | 2019-08-09 07:20 | NUR ---
SHIFT SUMMARY PT IS AN 83 Y/O MALE, ADMITTED FOR ANEMIA. PT HAS CONSTANT BLADDER IRRIGATION WITH RED-TINGED URINE. PT'S COBB WAS MANUALLY IRRIGATED ONCE DURING THE NIGHT TO REMOVE A BLOOD CLOT. PT DENIED ANY COMPLAINTS OF PAIN, NAUSEA OR SOB. AT 0345, IT WAS NOTED BY THIS RN THAT THE PT'S PERITONEAL DIALYSIS HAD NOT BEEN STARTED EARLIER IN THE SHIFT THOUGH IT WAS HOOKED UP TO THE PT. AFTER THE DIALYSIS MACHINE WAS STARTED, IT GAVE SEVERAL ERROR ALARMS THAT COULD NOT BE FIXED BY STAFF. THE MACHINE COIL ASSEMBLER WAS CONTACTED, WHO SUGGESTED CALLING THE DIALYSIS MACHINE [employer] LANGUAGE TUTOR. WHEN THEY WERE ALSO UNABLE TO CORRECT THE PROBLEM, THE PT'S DIALYSIS WAS SHUT DOWN, AND THE DIALYSIS NURSE CONTACTED. PER SUPERVISOR SAWMILL, PT HAD A 15 BEAT RUN OF VTACH THIS AM AT 0625. PT WAS ASYMPTOMATIC, AND VITALS STABLE. THE HOSPITALIST DR VILLAGRAN WAS CONTACTED, AND STAT LABS ORDERED. NO FURTHER ACUTE CHANGES NOTED. REPORT GIVEN TO ONCOMING RN.
[2019-08-09 07:28] LABS: Bun/Creatinine Ratio 6.8 (12.0-20.0); Calcium, Blood 8.4 mg/dL (8.5-10.1); Creatinine, Blood 8.43 mg/dL (0.60-1.20)
[2019-08-09 08:13] LABS: Gentamicin, Random 2.3 ug/Ml
[2019-08-09 09:34] LABS: BASOPHILS ABSOLUTE AUTO 0.03 K/mm3 (0.00-0.23); BASOPHILS PERCENT AUTO 0 % (0-2); EOSINOPHILS ABSOLUTE AUTO 0.21 K/mm3 (0.00-0.68); EOSINOPHILS PERCENT AUTO 2 % (0-6); Hematocrit 26.7 % (37.0-53.0); Hemoglobin 8.6 g/dL (13.5-17.5); IMMATURE GRAN ABSOLUTE AUTO 0.35 K/mm3 (0.00-0.10); IMMATURE GRAN PERCENT AUTO 4 % (0-1); LYMPHOCYTES ABSOLUTE AUTO 0.56 K/mm3 (0.84-5.20); LYMPHOCYTES PERCENT AUTO 6 % (21-46); MONOCYTES ABSOLUTE AUTO 0.81 K/mm3 (0.16-1.47); MONOCYTES PERCENT AUTO 9 % (4-13); Mean Corpuscular HGB 33.3 pg (26.0-34.0); Mean Corpuscular HGB Conc 32.2 g/dL (31.5-36.5); Mean Corpuscular Volume 104 fL (80-100); Mean Platelet Volume 9.2 fL (9.1-12.4); NEUTROPHILS ABSOLUTE AUTO 7.54 K/mm3 (1.96-9.15); NEUTROPHILS PERCENT AUTO 79 % (41-73); Platelet Count 139 K/mm3 (150-400); RDW Coefficient Variation 24.3 % (11.7-14.2); RDW Standard Deviation 90.1 fL (35.1-46.3); Red Blood Cell Count 2.58 M/mm3 (4.30-5.90)
--- NOTE | 2019-08-09 12:46 | NUR ---
FOLLOWING MACHINE ERROR DURING NIGHT, CCPD WAS RE-INITIATED THIS AM AMD COMPLETED AT 1230. PATIENT IN BED AND VERB COMFORT. TOLERATING CCPD THERAPY WITHOUT COMPLAINT. PATIENT AESEPTICALLY DISCONECTED AND CAPPED WITH NEW MINI-CAP. LINES SECURED FOR DAY. CYCLER STRIPPED AND CLEANED.
--- NOTE | 2019-08-09 18:33 | NUR ---
summary CONTINUOUS BLADDER IRRIGATION CONTINUES T/O DAY, URINE LIGHT PINK, OCCASIONAL SM CLOTS NOTED. PT CONTINUES SOMEWHAT FATIGUED, SLEEPING INTERMITTANTLY T/O DAY. THIS AFTERNOON OOB, AMBULATE IN [place] w FWW/GB, THEN UP IN CHAIR FOR DINNER, CHOOSES TO STAY UP FOR NOW. DUPLEX TRIMMER IN TO START PD APPROX 183. PT IS A/O X4, PLEASANT AFFECT. STATE NO PAIN TODAY. 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 IV ANTIBX CONTINUE R/T UTI. VSS.
--- NOTE | 2019-08-09 19:19 | NUR ---
UPON ENTERING ROOM, PATIENT SITTING IN CHAIR AT BEDSIDE FINISHING DINNER. NO DISTRESS OR DISCOMFORT NOTED OR REPORTED. NO SOB ON RA. CYCLER STRUNG, PROGRAMMED AND PRIMED PER DR KING'S ORDER. WHEN PRIME COMPLETE, PATIENT AESEPTICALLY CONNECTED. INITIAL DRAIN MONITORED FOR PATIENT COMFORT WHILE EXIT SITE CARE DONE. EXIT DRY, TIGHT AND NON-TENDER. NEW STERILE DRESSING APPLIED WITH 3 STRAIN RELIEFS. NIGHT MED FLOOR STAFF AWARE OF OVERNIGHT THERAPY IN PROGRESS.
[2019-08-10 04:39] LABS: BASOPHILS ABSOLUTE AUTO 0.04 K/mm3 (0.00-0.23); BASOPHILS PERCENT AUTO 1 % (0-2); EOSINOPHILS ABSOLUTE AUTO 0.24 K/mm3 (0.00-0.68); EOSINOPHILS PERCENT AUTO 3 % (0-6); Hematocrit 25.2 % (37.0-53.0); Hemoglobin 8.2 g/dL (13.5-17.5); IMMATURE GRAN PERCENT AUTO 5 % (0-1); LYMPHOCYTES ABSOLUTE AUTO 0.66 K/mm3 (0.84-5.20); LYMPHOCYTES PERCENT AUTO 8 % (21-46); MONOCYTES ABSOLUTE AUTO 0.77 K/mm3 (0.16-1.47); MONOCYTES PERCENT AUTO 10 % (4-13); Mean Corpuscular HGB 33.5 pg (26.0-34.0); Mean Corpuscular HGB Conc 32.5 g/dL (31.5-36.5); Mean Corpuscular Volume 103 fL (80-100); Mean Platelet Volume 8.6 fL (9.1-12.4); NEUTROPHILS ABSOLUTE AUTO 5.74 K/mm3 (1.96-9.15); NEUTROPHILS PERCENT AUTO 73 % (41-73); Platelet Count 126 K/mm3 (150-400); RDW Coefficient Variation 23.9 % (11.7-14.2); RDW Standard Deviation 88.9 fL (35.1-46.3); Red Blood Cell Count 2.45 M/mm3 (4.30-5.90); White Blood Cell Count 7.85 K/mm3 (4.00-11.30)
[2019-08-10 05:47] LABS: Albumin, Blood 2.6 g/dL (3.4-5.0); Albumin/Globulin Ratio 0.9 (0.8-1.8); Bilirubin, Total 0.3 mg/dL (0.1-1.0); Calcium, Blood 8.8 mg/dL (8.5-10.1); Globulin, Blood 2.8 g/dL (2.2-4.0); Potassium, Blood 3.5 mmol/L (3.5-5.5); Total Protein, Blood 5.4 g/dL (6.4-8.2)
[2019-08-10 05:49] LABS: Bun/Creatinine Ratio 6.4 (12.0-20.0); Creatinine, Blood 8.22 mg/dL (0.60-1.20)
--- NOTE | 2019-08-10 06:32 | NUR ---
SHIFT SUMMARY PT IS AN 83 Y/O MALE, ADMITTED FOR ANEMIA. HE IS A&O X 4, THOUGH OCCASIONALLY FORGETFUL, AND A 1-2PA UP TO [facility] PT IS A DIALYSIS PT, AND WAS ON PERITONEAL DIALYSIS THROUGH THE NIGHT. PT'S CREATININE WAS AGAIN CRITICALLY HIGH THIS AM AT 8.220, THOUGH DOWN SLIGHTLY FROM THE PREVIOUS NIGHT. VITAL SIGNS STABLE. PT DENIED ANY COMPLAINTS OF ACUTE PAIN, NAUSEA OR SOB. PT SLEPT WELL FOR SHORT PERIODS OF TIME THROUGH THE NIGHT. TELE MONTIOR NOTED NSR WITH A BBB, NO PERIODS OF AFIB OR V-TACH REPORTED. NO OTHER ACUTE CHANGES IN PT CONDITION NOTED. WILL CONTINUE TO MONITOR AND TREAT PER EMAR UNTIL HAND OFF TO DAY SHIFT RN.
--- NOTE | 2019-08-10 10:37 | NUR ---
DIALYSIS-PD PT AWAKE AND ALERT. SKIN COLOR BETTER. DC'ED PT FROM PD TX PER PROCOCAL. SITE CLEAR. FLUID CLEAR. ID [id number] UF [id number].
[2019-08-10] MEDS ORDERED: NEPHRO-VITE RX1 EACH PO ×2 (14:38)
[2019-08-10] MEDS ORDERED: CEFTAZIDIME IV ×2 (14:45)
[2019-08-10] MEDS ORDERED: Culturelle1 CAP PO ×2 (14:47)
[2019-08-10] MEDS ORDERED: Vitamin D2000 UNIT PO ×2 (14:50)
--- NOTE | 2019-08-10 16:52 | NUR ---
RENATA ORDER PLACED BY DR. PHELPS, NOT DR. NAIK.
--- NOTE | 2019-08-10 17:29 | NUR ---
1614 PT DISCHARGED HOME VIA PERSONAL VEHICLE ACCOMPANIED AND DRIVEN BY SON IN LAW. PT ESCORTED TO ENTRANCE VIA W/C. D/C PAPERWORK REVIEWED WITH PT AND FAMILY AND COPY PROVIDED. IV REMOVED. NEW RX FAXED TO [facility] PER PT PREFERENCE. APPOINTMENT MADE WITH RENATA FOR TOMORROW AT [address]. [address] COBB CAPPED AT IRRIGATION PORT, LEG BAG PLACED PER PT REQUEST. URINE CLEAR PINK TODAY.
--- NOTE | 2019-08-12 15:38 | NUR ---
[facility]ATA ORDERS ORDERED UNDER INCORRECT PROVIDER. D/C'D ORDER AND NEW ORDER PLACED WITH CORRECT PROVIDER.
== END 2019-08-10 16:14 | disposition home or self-care (01) | DRG 377 ==
LOC: ER 11:08 → MEDS 11:09 → ENPENDDIS 08-10 12:53 → MEDS 08-10 16:14
PROVIDERS: Emergency Medicine; Hospitalist; Internal Medicine; Internal Medicine Gastroenterology; Pharmacist; ADMIT Family Medicine
PROC: 0DB78ZX Excision of Stomach, Pylorus, Via Natural or Artificial Opening Endoscopic, Diagnostic (ICD-10-PCS; 2019-08-07)
PROC: 0W3P8ZZ Control Bleeding in Gastrointestinal Tract, Via Natural or Artificial Opening Endoscopic (ICD-10-PCS; principal; 2019-08-08 08:30)
DX: K92.1 Melena (principal); N18.6 End stage renal disease; I12.0 Hypertensive chronic kidney disease with stage 5 chronic kidney disease or end stage renal disease; N39.0 Urinary tract infection, site not specified; K64.8 Other hemorrhoids; Q27.33 Arteriovenous malformation of digestive system vessel; D63.1 Anemia in chronic kidney disease; Z99.2 Dependence on renal dialysis; K20.9 Esophagitis, unspecified; B96.1 Klebsiella pneumoniae [K. pneumoniae] as the cause of diseases classified elsewhere; B96.5 Pseudomonas (aeruginosa) (mallei) (pseudomallei) as the cause of diseases classified elsewhere; I25.10 Atherosclerotic heart disease of native coronary artery without angina pectoris; Z79.01 Long term (current) use of anticoagulants; Z79.82 Long term (current) use of aspirin; K63.5 Polyp of colon; E03.9 Hypothyroidism, unspecified
CPT/HCPCS: 36415; 36430; 71045; 76770; 80048; 80053; 80069; 80076; 80170; 81001; 83605; 83735; 84443; 85025; 85027; 85610; 85730; 86850; 86900; 86901; 86923; 87077; 87086; 87186; 88305; 88342; 92610; 93005; 93010; 94640; 94760; 96365; 97110; 97162; 97166; 97530; 97535; 99285-25; J0360; J0690; J0696; J0713; J0881; J1580; J1940; J2405; J2704; J7030; J7040; P9016

== ENCOUNTER 2019-08-11 08:07 | Day surgery (SDC) | payer MEDICARE, OTHER ==
[~2019-08-11 08:07] MED LIST changes: +CALCIUM ACETAT667 MG PO; +CEFTAZIDIME IV; +Culturelle1 CAP PO; +LEVSOD100 PO; +NEPHRO-VITE RX1 EACH PO
== END 2019-08-11 12:16 | disposition home or self-care (01) ==
LOC: ATC 08:07
DX: N39.0 Urinary tract infection, site not specified (principal); B96.1 Klebsiella pneumoniae [K. pneumoniae] as the cause of diseases classified elsewhere; R31.9 Hematuria, unspecified; R19.5 Other fecal abnormalities; I12.0 Hypertensive chronic kidney disease with stage 5 chronic kidney disease or end stage renal disease; N18.6 End stage renal disease; I25.10 Atherosclerotic heart disease of native coronary artery without angina pectoris; E03.9 Hypothyroidism, unspecified
CPT/HCPCS: 96365; J0713

== ENCOUNTER 2019-08-12 00:21 | Day surgery (SDC) | payer MEDICARE, OTHER | END 2019-08-12 12:42 | disposition home or self-care (01) | LOC: ATC 00:21 | DX: N39.0 Urinary tract infection, site not specified (principal); B96.1 Klebsiella pneumoniae [K. pneumoniae] as the cause of diseases classified elsewhere; I12.0 Hypertensive chronic kidney disease with stage 5 chronic kidney disease or end stage renal disease; N18.6 End stage renal disease; D63.1 Anemia in chronic kidney disease; I25.10 Atherosclerotic heart disease of native coronary artery without angina pectoris; M19.90 Unspecified osteoarthritis, unspecified site; E78.5 Hyperlipidemia, unspecified; E03.9 Hypothyroidism, unspecified; Z95.5 Presence of coronary angioplasty implant and graft; Z99.2 Dependence on renal dialysis; T83.098A Other mechanical complication of other urinary catheter, initial encounter | CPT/HCPCS: 51700; 96365; 96366; 99282-25; C1751; J0713 ==

== ENCOUNTER 2019-08-13 00:27 | Day surgery (SDC) | payer MEDICARE, OTHER | END 2019-08-13 11:40 | disposition home or self-care (01) | LOC: ATC 00:27 | DX: N39.0 Urinary tract infection, site not specified (principal); R31.9 Hematuria, unspecified; B96.1 Klebsiella pneumoniae [K. pneumoniae] as the cause of diseases classified elsewhere; B96.5 Pseudomonas (aeruginosa) (mallei) (pseudomallei) as the cause of diseases classified elsewhere; I12.0 Hypertensive chronic kidney disease with stage 5 chronic kidney disease or end stage renal disease; N18.6 End stage renal disease; D63.1 Anemia in chronic kidney disease; I25.10 Atherosclerotic heart disease of native coronary artery without angina pectoris; I48.91 Unspecified atrial fibrillation; E03.9 Hypothyroidism, unspecified; Z99.2 Dependence on renal dialysis; Z79.899 Other long term (current) drug therapy | CPT/HCPCS: 96365; J0713 ==

== ENCOUNTER 2019-08-14 00:30 | Day surgery (SDC) | payer MEDICARE, OTHER | END 2019-08-14 12:05 | disposition home or self-care (01) | LOC: ATC 00:30 | DX: N39.0 Urinary tract infection, site not specified (principal); B96.1 Klebsiella pneumoniae [K. pneumoniae] as the cause of diseases classified elsewhere; I12.0 Hypertensive chronic kidney disease with stage 5 chronic kidney disease or end stage renal disease; N18.6 End stage renal disease; D63.1 Anemia in chronic kidney disease; R19.5 Other fecal abnormalities; E03.9 Hypothyroidism, unspecified; I25.10 Atherosclerotic heart disease of native coronary artery without angina pectoris; Z79.899 Other long term (current) drug therapy; Z79.82 Long term (current) use of aspirin; E78.5 Hyperlipidemia, unspecified; Z95.5 Presence of coronary angioplasty implant and graft | CPT/HCPCS: 96365; J0713 ==

== ENCOUNTER 2019-08-15 11:02 | Day surgery (SDC) | payer MEDICARE, OTHER | END 2019-08-15 11:36 | disposition home or self-care (01) | LOC: ATC 11:02 | DX: N39.0 Urinary tract infection, site not specified (principal); B96.1 Klebsiella pneumoniae [K. pneumoniae] as the cause of diseases classified elsewhere; R31.9 Hematuria, unspecified; R19.5 Other fecal abnormalities; I12.0 Hypertensive chronic kidney disease with stage 5 chronic kidney disease or end stage renal disease; N18.6 End stage renal disease; D63.1 Anemia in chronic kidney disease; I25.10 Atherosclerotic heart disease of native coronary artery without angina pectoris; E03.9 Hypothyroidism, unspecified; Z99.2 Dependence on renal dialysis | CPT/HCPCS: 96365; J0713 ==

== ENCOUNTER 2019-08-16 15:29 | Day surgery (SDC) | payer MEDICARE, OTHER | END 2019-08-16 15:58 | disposition home or self-care (01) | LOC: ATC 15:29 | DX: N39.0 Urinary tract infection, site not specified (principal); B96.1 Klebsiella pneumoniae [K. pneumoniae] as the cause of diseases classified elsewhere; R31.9 Hematuria, unspecified; I12.0 Hypertensive chronic kidney disease with stage 5 chronic kidney disease or end stage renal disease; N18.6 End stage renal disease; D63.1 Anemia in chronic kidney disease; E03.9 Hypothyroidism, unspecified; I25.10 Atherosclerotic heart disease of native coronary artery without angina pectoris; R19.5 Other fecal abnormalities; Z99.2 Dependence on renal dialysis | CPT/HCPCS: 96365; J0713 ==

== ENCOUNTER 2019-08-17 00:13 | Day surgery (SDC) | payer MEDICARE, OTHER | END 2019-08-17 12:14 | disposition home or self-care (01) | LOC: ATC 00:13 | DX: N39.0 Urinary tract infection, site not specified (principal); B96.1 Klebsiella pneumoniae [K. pneumoniae] as the cause of diseases classified elsewhere; R31.9 Hematuria, unspecified; R19.5 Other fecal abnormalities; I12.0 Hypertensive chronic kidney disease with stage 5 chronic kidney disease or end stage renal disease; N18.6 End stage renal disease; D63.1 Anemia in chronic kidney disease; I25.10 Atherosclerotic heart disease of native coronary artery without angina pectoris; E03.9 Hypothyroidism, unspecified | CPT/HCPCS: 96365; J0713 ==

== ENCOUNTER 2019-08-18 00:11 | Day surgery (SDC) | payer MEDICARE, OTHER | END 2019-08-18 12:01 | disposition home or self-care (01) | LOC: ATC 00:11 | DX: N39.0 Urinary tract infection, site not specified (principal); R31.9 Hematuria, unspecified; B96.1 Klebsiella pneumoniae [K. pneumoniae] as the cause of diseases classified elsewhere; B96.5 Pseudomonas (aeruginosa) (mallei) (pseudomallei) as the cause of diseases classified elsewhere; I12.0 Hypertensive chronic kidney disease with stage 5 chronic kidney disease or end stage renal disease; N18.6 End stage renal disease; D63.1 Anemia in chronic kidney disease; I25.10 Atherosclerotic heart disease of native coronary artery without angina pectoris; I48.91 Unspecified atrial fibrillation; E03.9 Hypothyroidism, unspecified; Z99.2 Dependence on renal dialysis; Z79.82 Long term (current) use of aspirin; Z79.01 Long term (current) use of anticoagulants; Z79.899 Other long term (current) drug therapy | CPT/HCPCS: 96365; J0713 ==

== ENCOUNTER 2019-08-19 00:04 | Day surgery (SDC) | payer MEDICARE, OTHER ==
--- NOTE | 2019-08-19 10:05 | NUR ---
VITAL SIGNS DEFERRED.
--- NOTE | 2019-08-19 10:07 | NUR ---
DISCHARGED AT 1004.
== END 2019-08-19 10:04 | disposition home or self-care (01) ==
LOC: ATC 00:04
DX: N39.0 Urinary tract infection, site not specified (principal); B96.1 Klebsiella pneumoniae [K. pneumoniae] as the cause of diseases classified elsewhere; R31.9 Hematuria, unspecified; I12.0 Hypertensive chronic kidney disease with stage 5 chronic kidney disease or end stage renal disease; N18.6 End stage renal disease; D63.1 Anemia in chronic kidney disease; E03.9 Hypothyroidism, unspecified; I25.10 Atherosclerotic heart disease of native coronary artery without angina pectoris; R19.5 Other fecal abnormalities; E78.5 Hyperlipidemia, unspecified; Z79.899 Other long term (current) drug therapy; Z99.2 Dependence on renal dialysis; Z95.5 Presence of coronary angioplasty implant and graft
CPT/HCPCS: 99211; J0713

== ENCOUNTER 2019-09-01 22:26 | Inpatient (IN) | payer MEDICARE, OTHER ==
[~2019-09-01] VITALS: Ht 162.6 cm; Wt 78.2 kg
[2019-09-01 23:16] LABS: Source, Urine Clean Catch
[2019-09-01 23:28] LABS: Appearance, Urine Bloody (Clear); Bilirubin, Urine Neg (Neg); Blood, Urine 5+ (Neg); Color, Urine Red (P-Yellow); Glucose Qualitative, Urine Neg (Neg); Ketones, Urine 1+ (Neg); Leukocyte Esterase, Urine 1+ (Neg); Nitrite, Urine Neg (Neg); Protein, Urine 4+ (Neg); Red Blood Cells, Urine TNTC /hpf (0-2); Squamous Epithelial Cells Not Seen /hpf (Few); Urobilinogen, Urine NORM (Normal); White Blood Cells, Urine 25-50 /hpf (0-5)
[2019-09-01 23:29] LABS: Bacteria Few /hpf
[2019-09-01] MEDS ORDERED: VITAMIN D34000 UNIT PO (23:29)
[2019-09-01] MEDS ORDERED: LIVALO2 MG PO (23:31)
[2019-09-01] MEDS ORDERED: ATOR40TA PO (23:33)
[2019-09-01] MEDS ORDERED: Flonase 0.05% N16 GM (23:34)
[2019-09-01] MEDS ORDERED: CEFD300 PO (23:35)
[2019-09-01 23:50] LABS: BASOPHILS ABSOLUTE AUTO 0.03 K/mm3 (0.00-0.23); BASOPHILS PERCENT AUTO 1 % (0-2); EOSINOPHILS ABSOLUTE AUTO 0.11 K/mm3 (0.00-0.68); EOSINOPHILS PERCENT AUTO 2 % (0-6); Hematocrit 22.2 % (37.0-53.0); Hemoglobin 7.1 g/dL (13.5-17.5); IMMATURE GRAN ABSOLUTE AUTO 0.25 K/mm3 (0.00-0.10); IMMATURE GRAN PERCENT AUTO 4 % (0-1); LYMPHOCYTES ABSOLUTE AUTO 0.51 K/mm3 (0.84-5.20); LYMPHOCYTES PERCENT AUTO 8 % (21-46); MONOCYTES ABSOLUTE AUTO 0.78 K/mm3 (0.16-1.47); MONOCYTES PERCENT AUTO 12 % (4-13); Mean Corpuscular HGB 35.3 pg (26.0-34.0); Mean Corpuscular Volume 110 fL (80-100); Mean Platelet Volume 8.8 fL (9.1-12.4); NEUTROPHILS ABSOLUTE AUTO 4.71 K/mm3 (1.96-9.15); NEUTROPHILS PERCENT AUTO 74 % (41-73); Platelet Count 165 K/mm3 (150-400); RDW Coefficient Variation 21.8 % (11.7-14.2); RDW Standard Deviation 87.9 fL (35.1-46.3); Red Blood Cell Count 2.01 M/mm3 (4.30-5.90); White Blood Cell Count 6.39 K/mm3 (4.00-11.30)
[2019-09-02 00:27] LABS: Albumin, Blood 2.8 g/dL (3.4-5.0); Albumin/Globulin Ratio 0.9 (0.8-1.8); Bilirubin, Total 0.3 mg/dL (0.1-1.0); Bun/Creatinine Ratio 5.5 (12.0-20.0); Creatinine, Blood 9.27 mg/dL (0.60-1.20); Potassium, Blood 3.2 mmol/L (3.5-5.5); Total Protein, Blood 5.8 g/dL (6.4-8.2)
--- NOTE | 2019-09-02 05:49 | NUR ---
Patient received drowsy, but able to arouse with verbal commands. VSS. Henson catheter; red. 1st blood transfusion completed at 0507. 2nd Blood trans started at 0537. Albumin, K, and Antibiotic infused. Patient unable to answer questions, Med rec needs to be completed. two 20g IV to left arm;patent. Lab arrived to collect blood, will return after 2nd BT has ended.
--- NOTE | 2019-09-02 08:49 | NUR ---
TRANSFUSION COMPLETE AT THIS TIME, 2 UNIT OF BLOOD.
[2019-09-02 09:55] LABS: Hematocrit 29.7 % (37.0-53.0); Hemoglobin 9.7 g/dL (13.5-17.5); Mean Corpuscular HGB 33.3 pg (26.0-34.0); Mean Corpuscular HGB Conc 32.7 g/dL (31.5-36.5); Platelet Count 143 K/mm3 (150-400); RDW Coefficient Variation 22.4 % (11.7-14.2); RDW Standard Deviation 79.7 fL (35.1-46.3); Red Blood Cell Count 2.91 M/mm3 (4.30-5.90); White Blood Cell Count 6.96 K/mm3 (4.00-11.30)
[2019-09-02 09:57] LABS: Mean Corpuscular Volume 102 fL (80-100)
[2019-09-02 10:23] LABS: Albumin, Blood 3.3 g/dL (3.4-5.0); Albumin/Globulin Ratio 1.1 (0.8-1.8); Calcium, Blood 7.9 mg/dL (8.5-10.1); Potassium, Blood 3.4 mmol/L (3.5-5.5); Total Protein, Blood 6.3 g/dL (6.4-8.2)
[2019-09-02 10:26] LABS: Bun/Creatinine Ratio 5.7 (12.0-20.0); Creatinine, Blood 9.14 mg/dL (0.60-1.20)
--- NOTE | 2019-09-02 10:37 | NUR ---
PATIENT WILL RECIEVE USUAL OVERNIGHT CCPD THERAPY TONIGHT. SET UP SCHEDULED FOR CO AFTERNOON.
[2019-09-02 12:21] LABS: Hematocrit 26.7 % (37.0-53.0)
--- NOTE | 2019-09-02 15:23 | NUR ---
OVERNIGHT CCPD SET UP FOR DR KING'S PERITONEAL DIALYSIS PATIENT. CYCLER STRUNG, PRIMED AND PROGRAMMED PER RX. WHEN PRIME COMPLETE, PT AESEPTICALLY CONNECTED AND THERAPY COMMENSED. INITIAL DRAIN MONITORED FOR PATENT COMFORT. EXIT SITE CARE DONE. EXIT DRY, TIGHT, NON-TENDER. NEW STERILE DRESSING APPLIED WITH 3 STRAIN RELIEFS. SURG FLOOR STAFF AWARE OF THERAPY IN PROCESS.
[2019-09-02 18:17] LABS: Hematocrit 29.3 % (37.0-53.0); Hemoglobin 9.8 g/dL (13.5-17.5)
--- NOTE | 2019-09-02 19:46 | NUR ---
SUMMARY: PT HAS DONE WELL TODAY. VSS, A/O. BLADDER IRRIGATION UNSUCCESSFUL WITH ED COBB. DR. MARIN MADE AWARE AND CONTINIOUS BLADDER IRRAGATION STARTED AT ABOUT 1410. URINE CONTINUES TO HAVE SMALL CLOTS VISABLE, CRANBERRY COLORED. PERITONEAL DIALYSIS ALSO STARTED AT PT BEDSIDE. SEE DIALYSIS NOTES. NO ACUTE SAFETY CONCERNS. PT TOLERATING TREATMENT. H AND H STABLE AT THIS TIME, Q6 DRAWS ORDERED. REPORT GIVEN TO NGUYỄN CLARK.
[2019-09-03 00:15] LABS: Hematocrit 28.7 % (37.0-53.0); Hemoglobin 9.4 g/dL (13.5-17.5)
--- NOTE | 2019-09-03 06:05 | NUR ---
SUMMARY PT REQUIRING EXTENSIVE HAND IRRIGATION TO KEEP CONT IRRIGATION RUNNING THIS ENTIRE SHIFT. EVEN WITH CONT IRIIGATION APPEARING CLEAR TO LIGHT WATERMELON COLOR WITH HIGH RATES OF CONT FLOW,FLOW WILL STILL SUDDENLY START TO GET DARKER,PARTICULARLY WITH ANY REPOSITIONING.THEN HAND IRRIGATED, RETURNING MULTIPLE CLOTS.ONCE CLEAR , RESUMING CONTINUOUS. APPROX Q 4 HR HAND IRRIGATION TONIGHT.THIS AM, PT APPEARING TO HAVE SOME BLADDER SPASMS.CONTINUOUS IS CLEAR TO WATERMELON TINGED AT THIS TIME WITH NO CLOTS NOTED.
[2019-09-03 06:19] LABS: BASOPHILS ABSOLUTE AUTO 0.04 K/mm3 (0.00-0.23); BASOPHILS PERCENT AUTO 1 % (0-2); EOSINOPHILS ABSOLUTE AUTO 0.22 K/mm3 (0.00-0.68); EOSINOPHILS PERCENT AUTO 3 % (0-6); Hematocrit 26.4 % (37.0-53.0); IMMATURE GRAN ABSOLUTE AUTO 0.32 K/mm3 (0.00-0.10); IMMATURE GRAN PERCENT AUTO 4 % (0-1); LYMPHOCYTES ABSOLUTE AUTO 0.64 K/mm3 (0.84-5.20); LYMPHOCYTES PERCENT AUTO 8 % (21-46); MONOCYTES ABSOLUTE AUTO 0.88 K/mm3 (0.16-1.47); MONOCYTES PERCENT AUTO 11 % (4-13); Mean Corpuscular HGB 33.2 pg (26.0-34.0); Mean Corpuscular HGB Conc 34.1 g/dL (31.5-36.5); Mean Platelet Volume 9.1 fL (9.1-12.4); NEUTROPHILS ABSOLUTE AUTO 5.76 K/mm3 (1.96-9.15); NEUTROPHILS PERCENT AUTO 73 % (41-73); Platelet Count 154 K/mm3 (150-400); RDW Coefficient Variation 22.6 % (11.7-14.2); RDW Standard Deviation 76.5 fL (35.1-46.3); Red Blood Cell Count 2.71 M/mm3 (4.30-5.90); White Blood Cell Count 7.86 K/mm3 (4.00-11.30)
[2019-09-03 06:20] LABS: Hematocrit 26.4 % (37.0-53.0); Mean Corpuscular Volume 97 fL (80-100)
[2019-09-03 06:25] LABS: Albumin, Blood 2.7 g/dL (3.4-5.0); Anion Gap 12 mmol/L (6-16); Blood Urea Nitrogen 52 mg/dL (8-24); Bun/Creatinine Ratio 5.6 (12.0-20.0); CO2, Blood 26 mmol/L (21-32); Calcium, Blood 7.7 mg/dL (8.5-10.1); Chloride, Blood 100 mmol/L (98-108); Creatinine, Blood 9.33 mg/dL (0.60-1.20); Glomerular Filtration Rate 6 (60-); Glucose, Blood 112 mg/dL (70-99); Phosphorus, Blood 6.5 mg/dL (2.5-4.9); Potassium, Blood 3.1 mmol/L (3.5-5.5); Sodium, Blood 138 mmol/L (136-145)
--- NOTE | 2019-09-03 10:12 | NUR ---
DIALYSIS-PD PT IN BED IN HIS ROOM. AWAKE AND ALERT. ID [id number] UF [id number]. SITE CLEAR, FLUID CLEAR. DC'ED TX PER MAIKEL.
[2019-09-03 12:21] LABS: Hematocrit 26.7 % (37.0-53.0); Hemoglobin 8.8 g/dL (13.5-17.5)
--- NOTE | 2019-09-03 14:53 | NUR ---
DIALYSIS-PD PT'S SON IN LAW IN ROOM. PT CONNECTED TO PD TX PER PROTOCAL. PT APPEARS ALERT AND ORIENTED. 12 HR TX. SPOKE HIS RN ABOUT ALARMS.
--- NOTE | 2019-09-03 18:33 | NUR ---
SUMMARY: NO ACUTE CHANGE TODAY. VSS, A/O. CONTINUIOUS BLADDER IRRIGATION RUNNING. URINE HAS BEEN WATERMELON COLOR ALL DAY. 1-2 CLOTS NOTED. PT DID NOT COMPLAIN OF INCREASED PAIN AT CATHETER SITE OR BLADDER, DID NOT NEED IMMEDIATE OBVIOUS MANUAL IRRIGATION TODAY. MANUALLY IRRIGATED AT SHIFT START WITH 2 SMALL CLOTS NOTED. SPOKE WITH DR. MARIN REGARDING PT CONTINUED HEMATURIA, AND DR. MARIN. SPOKE WITH PT UROLOGIST. SEE MD NOTES FOR DETAILS. PEST CONTROL SUPERVISOR DELONDA IN TO START PERITONEAL DIALYSIS, RUNNING AT THIS TIME. PT UP WITH TOMAS FWW. CONTINUES TO HAVE SOME WEAKNESS WITH AMBULATING. TOLERATING REGULAR DIET. PT SON AT BEDSIDE THE MAJORITY OF TODAY. PLAN IS TO CONTINUE CURRENT PLAN OF CARE. WILL CTM AND REPORT TO HILDA ADRIAN.
--- NOTE | 2019-09-03 19:39 | NUR ---
URINE APPEARED DARKER IN COLOR, CRANBERRY, AT SHIFT CHANGE AND MANUAL IRRIGATION GIVEN. 5-7 SMALL BLOOD CLOTS WITH MANUAL IRRIGATION, AND CONTINUIOUS IRRIGATION RESTARTED WITH URINE WATERMELON TO CLEAR IN COLOR, PT DENIED ANY PAIN OR DISCOMFORT. WILL MAKE NOC RN AWARE.
[2019-09-03 20:12] LABS: Hematocrit 27.9 % (37.0-53.0); Hemoglobin 9.2 g/dL (13.5-17.5)
--- NOTE | 2019-09-03 21:13 | NUR ---
ASSUMED CARE OF PATIENT PATIENT ALERT AND ORIENTED X4 TLINGIT & HAIDA. CONTINUOUS BLADDER IRRIGATION IN PLACE WITH 3 WAY COBB - PATIENT HAVING PEA SIZE BLOOD CLOTS NOTED, URINE OVERALL WATERMELON COLOR. PATIENT DENIES ANY PAIN AT THIS TIME. HR REMAINS SR W/ 1ST DEGREE BLOCK RATE AT 71 PER SMALL ENGINE TECHNICIAN. VSS. NO ACUTE CHANGES NOTED. WILL CONTIUE TO MONITOR, CALL LIGHT W/I REACH.
--- NOTE | 2019-09-03 23:34 | NUR ---
ASSUMED CARE OF PT. COBB IS DRAINING LIGHT CRANBERRY URINE. NO CLOTS NOTED. PT IS SLEEPING. WILL CONT TO MONITOR.
--- NOTE | 2019-09-04 04:07 | NUR ---
DID WELL SINCE ASSUMED CARE. NO NEED FOR FURTHER MAUNEL IRRIGATION. CONT IRRIGATION TO A MED DRIP, URINE COLOR IS LIGHT/MEDIUM CRANBERRY COLOR. NO CLOTS NOTED BUT SOME SEDIMENT IN TUBING. PT DENIES ANY C/O. PD COMPLETED. CALL LIGHT IN REACH.
[2019-09-04 04:21] LABS: BASOPHILS ABSOLUTE AUTO 0.05 K/mm3 (0.00-0.23); BASOPHILS PERCENT AUTO 1 % (0-2); EOSINOPHILS ABSOLUTE AUTO 0.21 K/mm3 (0.00-0.68); EOSINOPHILS PERCENT AUTO 3 % (0-6); Hematocrit 27.1 % (37.0-53.0); Hemoglobin 8.9 g/dL (13.5-17.5); IMMATURE GRAN ABSOLUTE AUTO 0.32 K/mm3 (0.00-0.10); IMMATURE GRAN PERCENT AUTO 5 % (0-1); LYMPHOCYTES ABSOLUTE AUTO 0.57 K/mm3 (0.84-5.20); LYMPHOCYTES PERCENT AUTO 8 % (21-46); MONOCYTES ABSOLUTE AUTO 0.95 K/mm3 (0.16-1.47); MONOCYTES PERCENT AUTO 13 % (4-13); Mean Corpuscular HGB Conc 32.8 g/dL (31.5-36.5); Mean Platelet Volume 9.2 fL (9.1-12.4); NEUTROPHILS ABSOLUTE AUTO 4.98 K/mm3 (1.96-9.15); NEUTROPHILS PERCENT AUTO 70 % (41-73); NRBC ABSOLUTE 0.02 K/mm3 (0.00-0.02); NRBC Auto 0.3 /100 WBC (0.0-0.2); Platelet Count 143 K/mm3 (150-400); RDW Coefficient Variation 21.8 % (11.7-14.2); White Blood Cell Count 7.08 K/mm3 (4.00-11.30)
[2019-09-04 04:22] LABS: Mean Corpuscular Volume 100 fL (80-100)
[2019-09-04 04:43] LABS: Magnesium, Blood 1.4 mg/dL (1.6-2.4)
[2019-09-04 04:55] LABS: Albumin, Blood 2.7 g/dL (3.4-5.0); Anion Gap 11 mmol/L (6-16); Blood Urea Nitrogen 49 mg/dL (8-24); Bun/Creatinine Ratio 5.6 (12.0-20.0); CO2, Blood 26 mmol/L (21-32); Calcium, Blood 8.2 mg/dL (8.5-10.1); Chloride, Blood 99 mmol/L (98-108); Creatinine, Blood 8.75 mg/dL (0.60-1.20); Glomerular Filtration Rate 6 (60-); Glucose, Blood 118 mg/dL (70-99); Potassium, Blood 3.3 mmol/L (3.5-5.5); Sodium, Blood 136 mmol/L (136-145)
--- NOTE | 2019-09-04 05:02 | NUR ---
CONVERTED TO AFIB CALLED FROM TELE MONITOR STATED PT CONVERTED TO AFIB ABOUT AN HOUR AGO, HR AVERAGE 122. PT DOES HAVE HX OF AFIB, CURRENTLY ON ASA, PLAVIX AND METOPROLOL. DID PLACE CALL OUT TO DR. PHELPS.
--- NOTE | 2019-09-04 05:29 | NUR ---
PUSHED 5MG IV LOPRESSOR PER ORDER. HR STILL >110 ORDERED ANOTHER 5MG IV LOPRESSOR PER DR. PHELPS.
--- NOTE | 2019-09-04 09:54 | NUR ---
DIALYSISPD PT SITTING UP EATING BREAKFAST. APPEARED HAPPY AND ALERT. DC'ED PD TX PER PROTOCAL. FLUID CLEAR. CLEANED AND DRESSED SITE. NO REDNESS OR DRAINAGE. ACTUALLY LOOKS VERY GOOD.
[2019-09-04 12:42] LABS: Hematocrit 28.2 % (37.0-53.0); Hemoglobin 9.4 g/dL (13.5-17.5)
--- NOTE | 2019-09-04 14:37 | NUR ---
THERAPY: PT WORKED WELL WITH THERAPY TO AMBULATE HALLWAYS. ENCOURAGED TO WALK AT LEAST 3 TIMES PER DAY AND BE UP TO CHAIR FOR MEALS.
--- NOTE | 2019-09-04 16:24 | NUR ---
DIALYSIS: COMPOSITOR APPRENTICE TO SET UP PD. COBB EMPTIED, REAMINS KAMI RED BUT THERE ARE VERY FEW SMALL CLOTS. IRRIGATION RATE MAINTAINED.
--- NOTE | 2019-09-04 16:29 | NUR ---
DIALYSIS-PD PT IN ROOM WITH HIS SON IN LAW. CONNECTED PT TO PD TX PER PROTOCAL. SITE CLEAR. FLUID CLEAR. PT HAS NO C/O AT THIS TIME. TALKED TO PT'S RN. SHOWED THE MACHINE AND THE LINES. TOLD HER HOW TO CONTACT [place] OR I FOR ALARMS.
--- NOTE | 2019-09-04 18:19 | NUR ---
PT HAS BEEN STABLE THIS SHIFT. REMAINED IN SR SINCE THIS AM. COBB CONTINUES TO BE RED WITH FEW SMALL CLOTS. CONT BLADDER IRRIGATION. PERITONEAL DIALYSIS STARTED THIS AFTERNOON. PT UP TO SIT IN CHAIR AND WORK WITH THERAPY. PT HAD BM X2. SON AT BEDSIDE T/O SHIFT, ATTENTIVE. PT CALLS APPROPRIATELY. CONT TO ENCOURAGE AMBULATION.
[2019-09-04 20:14] LABS: Hematocrit 27.8 % (37.0-53.0); Hemoglobin 9.1 g/dL (13.5-17.5)
[2019-09-05 04:18] LABS: Hematocrit 25.3 % (37.0-53.0); Hemoglobin 8.4 g/dL (13.5-17.5); Mean Corpuscular HGB 33.1 pg (26.0-34.0); Mean Corpuscular HGB Conc 33.2 g/dL (31.5-36.5); Mean Corpuscular Volume 100 fL (80-100); Mean Platelet Volume 9.1 fL (9.1-12.4); NRBC ABSOLUTE 0.03 K/mm3 (0.00-0.02); NRBC Auto 0.4 /100 WBC (0.0-0.2); Platelet Count 139 K/mm3 (150-400); RDW Coefficient Variation 20.9 % (11.7-14.2); RDW Standard Deviation 73.8 fL (35.1-46.3); Red Blood Cell Count 2.54 M/mm3 (4.30-5.90); White Blood Cell Count 6.93 K/mm3 (4.00-11.30)
[2019-09-05 04:39] LABS: Magnesium, Blood 1.5 mg/dL (1.6-2.4)
[2019-09-05 04:48] LABS: Albumin, Blood 2.6 g/dL (3.4-5.0); Anion Gap 11 mmol/L (6-16); Blood Urea Nitrogen 47 mg/dL (8-24); Bun/Creatinine Ratio 5.6 (12.0-20.0); CO2, Blood 26 mmol/L (21-32); Calcium, Blood 8.4 mg/dL (8.5-10.1); Chloride, Blood 101 mmol/L (98-108); Creatinine, Blood 8.39 mg/dL (0.60-1.20); Glomerular Filtration Rate 7 (60-); Glucose, Blood 126 mg/dL (70-99); Phosphorus, Blood 5.8 mg/dL (2.5-4.9); Potassium, Blood 3.5 mmol/L (3.5-5.5); Sodium, Blood 138 mmol/L (136-145)
[2019-09-05 05:18] LABS: BAND PERCENT MAN 12 % (0-8); BASOPHILS PERCENT MAN 0 % (0-2); EOSINOPHILS PERCENT MAN 3 % (0-6); LYMPHOCYTES ABSOLUTE MAN 0.55 K/mm3 (0.84-5.20); LYMPHOCYTES PERCENT MAN 8 % (21-46); METAMYELOCYTE ABSOLUTE MAN 0.06 K/mm3 (0.00-0.00); METAMYELOCYTE PERCENT MAN 1 % (0-0); MONOCYTES ABSOLUTE MAN 0.41 K/mm3 (0.16-1.47); MONOCYTES PERCENT MAN 6 % (4-13); MYELOCYTE ABSOLUTE MAN 0.27 K/mm3 (0.00-0.00); MYELOCYTE PERCENT MAN 4 % (0-0); SEG NEUTROPHILS PERCENT MAN 66 % (41-73); TOTAL CELLS COUNTED 100
--- NOTE | 2019-09-05 06:41 | NUR ---
PERITONEAL DIALYSIS IS COMPLETE. AWAITING DIALYSIS NURSE TO COME UNHOOK PATIENT. HE SLEPT THROUGH OUT THE NIGHT. COBB CATHETER WAS CONTINUOUSLY FLUSHING, FLUID IN THE TUBING AND COLLECTION BAG IS RED AND WATERY, NO LARGE CLOTS ARE SEEN. MAG IS BEING REPLACED VIA IV.
--- NOTE | 2019-09-05 08:09 | NUR ---
PATIENT RESTING QUIETLY UPON ENTRY TO ROOM THIS AM. WAKENS EASILY TO FULL ORIENT. NO DISCOMFORT REPORTED. OVERNIGHT CCPD COMPLETED. PATIENT AESEPTICALLY DISCONNECTED AND CAPPED. CYCLER STRIPPED AND CLEANED. DR RODRÍGUEZ CONSULTED REGARDING ORDERS / PLAN OF CARE.
--- NOTE | 2019-09-05 11:37 | NUR ---
PT FAMILY REQ TO HAVE DR GORMAN TALK WITH THEM REGARDING PT'S PLAN OF CARE. DR MARIN HERE AND TALKED WITH PT AND FAMILY.
--- NOTE | 2019-09-05 11:39 | NUR ---
DR MARIN AND PT/FAMILY DISCUSSED PT TRANSFER TO OTHER HOSPITAL.
[2019-09-05 12:41] LABS: Hematocrit 27.4 % (37.0-53.0)
--- NOTE | 2019-09-05 16:32 | NUR ---
PATIENT AWAKE, IN BED AND WATCHING TV THIS AFTERNOON. NO VERB COMPLAINT. CYCLER STRUNG, SET UP, AND PRIMED PER DR RODRÍGUEZ'S ORDER. EXIT SITE CARE DONE WHILE CYCLER TESTING ANF PRIMING. EXIT JOHN REMAINS CLEAR, DRY AND TIGHT. NEW STERILE DRESSING APPLIED WITH 3 STRAIN RELIEFS. WHWN PRIME COMPLETE, PATIENT AESPTICALLY CONNECTED AND THERAPY STARTED. INITIAL DRAIN MONITORED FOR PATIENT COMFORT. NO ADVERSE EFFECTS REPORTED. SURG FLOOR STAFF AWARE OF OVERNIGHT THERAPY IN PROGRESS AND AWARE THAT DIALYSIS NURSE WILL DISCONNECT IN THE AM AT APPROX [id number].
--- NOTE | 2019-09-05 18:39 | NUR ---
SHIFT SUMMARY PT EATING AND DRINKING. PT CONT TO HAVE CONT BLADDER IRRIGATION (CBI) WITH PINK/RED. PT UP IN CHAIR NOW. PT BEEN ASSISTED WITH ADL'S PRN. DR MARIN REPORTED TALKING TO UROLOGY AND THAT THEY WOULD CONT WITH TREATMENT BEING DONE HERE, THAT THEY WOULD NOT PERFORM PROCEDURE OR CARTERIZE AT THIS TIME. FAMILY IN/OUT OF ROOM TODAY. DR MARIN DID SPEAK WITH FAMILY THIS AM PER HIS REQ.
--- NOTE | 2019-09-06 02:33 | NUR ---
PATIENT COMPLAINED OF NEEDING TO URINATE AND FEELING LIKE HIS BLADDER WAS FULL. OBTAINED NEW BLADER IRRIGATION KIT AND MANUALLY IRRAGATED BLADDER GENTLY AND REMOVED MANY CLOTS. THIS WAS REPEATED MANY TIMES UNTIL NO NEW BLOOD CLOTS WERE SEEN. CONTINUOUS FLUSH RESTARTED, DRAINED FLUID IS NOW PINK TINGED. PATIENT HAS COMPLETE RELIEF OF FULLNESS OF BLADDER.
[2019-09-06 04:17] LABS: Hematocrit 23.4 % (37.0-53.0); Hemoglobin 7.7 g/dL (13.5-17.5)
[2019-09-06 04:45] LABS: Magnesium, Blood 1.8 mg/dL (1.6-2.4)
[2019-09-06 04:48] LABS: Albumin, Blood 2.5 g/dL (3.4-5.0); Anion Gap 12 mmol/L (6-16); Blood Urea Nitrogen 44 mg/dL (8-24); Bun/Creatinine Ratio 5.2 (12.0-20.0); CO2, Blood 25 mmol/L (21-32); Calcium, Blood 8.4 mg/dL (8.5-10.1); Chloride, Blood 100 mmol/L (98-108); Creatinine, Blood 8.45 mg/dL (0.60-1.20); Glomerular Filtration Rate 6 (60-); Glucose, Blood 143 mg/dL (70-99); Phosphorus, Blood 5.9 mg/dL (2.5-4.9); Potassium, Blood 3.6 mmol/L (3.5-5.5); Sodium, Blood 137 mmol/L (136-145)
--- NOTE | 2019-09-06 06:34 | NUR ---
NO ACUTE CHANGES AT THE END OF THE SHIFT. THE URINARY CATH IS CONTINUOUSLY INFUSING AND IS PINK IN COLOR WITH SEDIMENT IN THE TUBING.
--- NOTE | 2019-09-06 07:11 | NUR ---
PATIENT RESTING QUIETLY IN BED IN DARKENED ROOM UPON FIRST ENCOUNTER THIS AM. WAKENS EASILY TO FULL ORIENT. OVERNIGHT CCPD THERAPY COMPLETED. PATIENT AESEPTICALLY DISCONNECTED AND CAPPED. CYCLER STRIPPED AND CLEANED. DR RODRÍGUEZ CONSULTED FOR NEW ORDERS / TODAY'S PLAN OF CARE.
--- NOTE | 2019-09-06 08:43 | NUR ---
PATIENT IS STILL ON CONTINUOUS BLADDER IRRIGATION. UP TO THE CHAIR FOR BREAKFAST AND STATES HE FEELS THAT HE IS MAYBE BEING BLOCKED AGAIN. PATIENT WILL BE TRANSFERRED BACK TO BED AND REEVALUATED.
--- NOTE | 2019-09-06 16:34 | NUR ---
PATIENT AWAKE ALERT AND QUIRT IN BED THIS AFTERNOON. PRBC INFUSING AND NEAR DONE. BLADDER IRRIGATION CONTINUOUS AND CLOTTING HAS BEEN AN ISSUE. CYCLER STRUNG, PRIMED AND PROGRAMMED PER RX. WHEN PRIME COMPLETE, PT AESEPTICALLY CONNECTED AND INITIAL DRAIN STARTED. EXIT SITE CARE DONE DURING ID AND PATIENT MONITORED FOR COMFORT. EXIT WITH SOME SLIGHT REDNESS BUT NO DISCHARGE OR TENDERNESS. NEW STERILE DRESSING APPLIED WITH 3 STRAIN RELIEFS. SURG FLOOR STAFF AWARE OF OVERNIGHT THERAPY IN PROGRESS.
--- NOTE | 2019-09-06 16:35 | NUR ---
SHIFT SUMMARY PT WITH CBI RUNNING ON HIGH RATE, CONTINUES TO CLOT OFF, MULTIPLE MANUAL IRRIGATION THIS SHIFT WITH LARGE AMOUNTS OF CLOTS REMOVED. 1 UNIT PRBC GIVEN THIS SHIFT.
--- NOTE | 2019-09-07 05:44 | NUR ---
SHIFT SUMMARY: PT REMAINS ON CONTINUOUS BLADDER IRRIGATION. MANUAL FLUSHES COMPLETED SEVERAL TIME THIS SHIFT PRODUCING NUMEROUS CLOTS. DRAINAGE WATERMELON PINK AT THIS TIME. HE IS A 1-2 PERSON ASSIST TO THE BEDSIDE COMMODE. DIALYSIS CYCLE COMPLETE. HE IS A&o X4. CLINICAL TRIAL MANAGER DINORAH REPORTED AN 8 BEAT RUN OF V-TACH, NURSE IN THE ROOM DURING THIS RUN, PT ASYMPTOMATIC, NO REPEAT AT THIS TIME. PT RESTING IN BED WITH CALL LIGHT IN REACH.
--- NOTE | 2019-09-07 06:55 | NUR ---
recvd report from previous shift NGUYỄN Cardenas with orientee NGUYỄN Finn, pt sleeping in room, call light night within reach, bed in lowest position, bed rails up x 2
[2019-09-07 07:04] LABS: Hemoglobin 9.2 g/dL (13.5-17.5)
[2019-09-07 07:27] LABS: Magnesium, Blood 1.9 mg/dL (1.6-2.4); PSA, %Free 17.8 %; PSA, Free 0.143 ng/mL; Prostate Specific Antigen 0.804 ng/mL (0.000-4.000)
[2019-09-07 07:47] LABS: Albumin, Blood 2.7 g/dL (3.4-5.0); Anion Gap 10 mmol/L (6-16); Blood Urea Nitrogen 42 mg/dL (8-24); Bun/Creatinine Ratio 5.2 (12.0-20.0); CO2, Blood 27 mmol/L (21-32); Calcium, Blood 8.9 mg/dL (8.5-10.1); Chloride, Blood 101 mmol/L (98-108); Creatinine, Blood 8.12 mg/dL (0.60-1.20); Glomerular Filtration Rate 7 (60-); Glucose, Blood 142 mg/dL (70-99); Phosphorus, Blood 6.7 mg/dL (2.5-4.9); Potassium, Blood 3.8 mmol/L (3.5-5.5); Sodium, Blood 138 mmol/L (136-145)
--- NOTE | 2019-09-07 09:37 | NUR ---
NOTIFIED LEFT SECOND MESSAGE WITH DR. RODRÍGUEZ'S VOICEMAIL, AWAITING ORDERS AND TRANSFER INSTRUCTIONS. DR. MAGANA REQUESTS DR. RODRÍGUEZ CONNACT UROLOGIST FIRST, THEN WILL SET UP TRANSFER WITH HOSPITALIST.
--- NOTE | 2019-09-07 11:44 | NUR ---
NOTIFIED SPOKE WITH DR. RODRÍGUEZ ABOUT CREATININE LEVEL AND RELAYED DR. MAGANA REQUEST.
--- NOTE | 2019-09-07 14:00 | NUR ---
Dr Cerda/Dr Nugent initiating pt transfer to service of Dr Negrete at [facility]. Awaiting transfer orders/room assignment to begin COBRA transfer
--- NOTE | 2019-09-07 18:18 | NUR ---
PT TRANSFER PT TRANSFERRED TO [facility] IN [place] AT 1817 TODAY VIA GURNEY WITH [facility]. REPORT GIVEN TO NGUYỄN DE LA GARZA. PT A&OX4 WITH VS AT BASELINE. CONT. IRRIGATION HAD 14233MG OUT WITH 12238YE IN; REQUIRED SEVERAL MANUAL FLUSHES T/O SHIFT THAT PRODUCED NUMEROUS CLOTS. D/C'D PER ORDER FOR TRANSFER. MEPILEX APPLIED TO COCCYX R/T INCREASED REDNESS. TOLERATED WORKING WITH THERAPY WELL THIS MORNING. FAMLY AT BEDSIDE T/O ENTIRE SHIFT AND PLAN TO TRAVEL TO [facility] WITH PT.
== END 2019-09-07 18:43 | disposition short-term general hospital (02) | DRG 811 ==
LOC: ER 22:26 → SURS 22:27
PROVIDERS: Emergency Medicine; Family Medicine; Internal Medicine Nephrology; ADMIT Internal Medicine
PROC: 30233N1 Transfusion of Nonautologous Red Blood Cells into Peripheral Vein, Percutaneous Approach (ICD-10-PCS; principal; 2019-09-01)
DX: D62 Acute posthemorrhagic anemia (principal); N18.6 End stage renal disease; R31.9 Hematuria, unspecified; Z99.2 Dependence on renal dialysis; I25.10 Atherosclerotic heart disease of native coronary artery without angina pectoris; Z79.82 Long term (current) use of aspirin; Z79.02 Long term (current) use of antithrombotics/antiplatelets; Z66 Do not resuscitate; E03.9 Hypothyroidism, unspecified; K21.9 Gastro-esophageal reflux disease without esophagitis; Z95.5 Presence of coronary angioplasty implant and graft; E87.6 Hypokalemia; M79.2 Neuralgia and neuritis, unspecified; E83.42 Hypomagnesemia; D69.6 Thrombocytopenia, unspecified; I48.0 Paroxysmal atrial fibrillation; E83.39 Other disorders of phosphorus metabolism; I12.9 Hypertensive chronic kidney disease with stage 1 through stage 4 chronic kidney disease, or unspecified chronic kidney disease
CPT/HCPCS: 36415; 36430; 51700; 74176; 80053; 80069; 81001; 83735; 84153; 84154; 85014; 85018; 85025; 85027; 86850; 86900; 86901; 86923; 87086; 96365; 96366; 96367; 97116; 97162; 97166; 97530; 97535; 99285; G0378; J0713; J0881; J3475; J3480; J7030; J7050; P9016; P9046

== ENCOUNTER 2019-10-14 11:58 | Observation (INO) | payer MEDICARE, OTHER ==
[~2019-10-14] VITALS: Ht 162.6 cm; Wt 79.2 kg
[~2019-10-14 11:58] MED LIST changes: +VITAMIN D34000 UNIT PO
[2019-10-14 14:22] LABS: BASOPHILS ABSOLUTE AUTO 0.07 K/mm3 (0.00-0.23); BASOPHILS PERCENT AUTO 1 % (0-2); EOSINOPHILS ABSOLUTE AUTO 0.36 K/mm3 (0.00-0.68); EOSINOPHILS PERCENT AUTO 3 % (0-6); Hemoglobin 8.8 g/dL (13.5-17.5); IMMATURE GRAN ABSOLUTE AUTO 0.36 K/mm3 (0.00-0.10); IMMATURE GRAN PERCENT AUTO 3 % (0-1); LYMPHOCYTES ABSOLUTE AUTO 0.56 K/mm3 (0.84-5.20); LYMPHOCYTES PERCENT AUTO 5 % (21-46); MONOCYTES ABSOLUTE AUTO 1.09 K/mm3 (0.16-1.47); MONOCYTES PERCENT AUTO 10 % (4-13); Mean Corpuscular HGB 36.4 pg (26.0-34.0); Mean Corpuscular HGB Conc 32.6 g/dL (31.5-36.5); Mean Corpuscular Volume 112 fL (80-100); Mean Platelet Volume 9.7 fL (9.1-12.4); NEUTROPHILS ABSOLUTE AUTO 8.07 K/mm3 (1.96-9.15); NEUTROPHILS PERCENT AUTO 77 % (41-73); NRBC ABSOLUTE 0.06 K/mm3 (0.00-0.02); NRBC Auto 0.6 /100 WBC (0.0-0.2); Platelet Count 170 K/mm3 (150-400); RDW Coefficient Variation 23.3 % (11.7-14.2); RDW Standard Deviation 90.5 fL (35.1-46.3); Red Blood Cell Count 2.42 M/mm3 (4.30-5.90); White Blood Cell Count 10.51 K/mm3 (4.00-11.30)
[2019-10-14 14:43] LABS: Troponin I 0.069 ng/mL (0.000-0.040)
[2019-10-14 14:44] LABS: Albumin, Blood 2.5 g/dL (3.4-5.0); Albumin/Globulin Ratio 0.7 (0.8-1.8); Bilirubin, Total 0.4 mg/dL (0.1-1.0); Bun/Creatinine Ratio 4.7 (12.0-20.0); Calcium, Blood 8.3 mg/dL (8.5-10.1); Creatinine, Blood 7.95 mg/dL (0.60-1.20); Globulin, Blood 3.4 g/dL (2.2-4.0); Potassium, Blood 4.8 mmol/L (3.5-5.5); Total Protein, Blood 5.9 g/dL (6.4-8.2)
[2019-10-14 15:48] LABS: Source, Urine Catheter
[2019-10-14] MEDS ORDERED: POTCIT10 (15:48)
[2019-10-14 16:01] LABS: Bilirubin, Urine Neg (Neg); Blood, Urine 5+ (Neg); Glucose Qualitative, Urine Neg (Neg); Ketones, Urine 2+ (Neg); Leukocyte Esterase, Urine Neg (Neg); Nitrite, Urine Neg (Neg); Protein, Urine 4+ (Neg); Urobilinogen, Urine NORM (Normal)
[2019-10-14 16:04] LABS: Appearance, Urine Turbid (Clear); Color, Urine Red (P-Yellow); Red Blood Cells, Urine TNTC /hpf (0-2)
[2019-10-14 16:05] LABS: Bacteria Mod /hpf; Squamous Epithelial Cells Rare /hpf (Few)
[2019-10-14] MEDS ORDERED: FINA5 PO (18:24)
--- NOTE | 2019-10-14 20:40 | NUR ---
PT ARRIVAL Pt arrives to PCU via gurney with ED RN at bedside. Pt on RA. VSS with exception of tachycardia. Pt on dilt gtt upon arrival at 5mg/hr. Pt titrated to 10mg/hr per protocol. monitoring hr via telemetry. Pt in afib upon arrival, asymptomatic. Dialysis to begin, Praful RN at bedside. Pt's daughter and son-in-law at bedside. Alert and oriented, see admission assessment for detailed systems assessment. No acute concerns to note at time of arrival. Pt able to make needs known with call light. Pt denies pain. Will continue to monitor.
--- NOTE | 2019-10-14 21:48 | NUR ---
PATIENT ADMITTED TO PCU VIA ER FOR COMPLAINT OF TACHYCARDIA OF NEARLY 24 DURATION. PATIENT HAS CONCURRENT ISSUE WITH POSSIBLE UTI. PATIENT AWAKE , ALERT, CONVERSANT WHILE LYING COMFORTABLY IN BED. CYCLER SET UP, PRIMED AND PROGRAMMED PER DR KING'S ORDER. WHEN PRIME COMLETE, PATIENT WAS AESEPTICALLY CONNECTED AND INITIAL DRAIN MONITORED THROUGH COMPLETION AND START OF FILL #1. NO VOICED DISCOMFORT. EXIT SITE CARE DONE. SOME SLIGHT REDNESS AT IMMEDIATE EXIT SITE BUT NO DRAINAGE OR TENDERNESS. NEW STERILE DRESSING APPLIED WITH 3 STRAIN RELIEFS. PCU STAFF AWARE OF CCPD THERAPY IN PROGRESS.
--- NOTE | 2019-10-14 23:05 | NUR ---
6 beat run of VTACH. Pearce. RN at bedside.
[2019-10-15 03:59] LABS: Hematocrit 25.8 % (37.0-53.0); Hemoglobin 8.2 g/dL (13.5-17.5); Mean Corpuscular HGB 35.2 pg (26.0-34.0); Mean Corpuscular HGB Conc 31.8 g/dL (31.5-36.5); Mean Corpuscular Volume 111 fL (80-100); Mean Platelet Volume 9.4 fL (9.1-12.4); NRBC ABSOLUTE 0.08 K/mm3 (0.00-0.02); NRBC Auto 0.8 /100 WBC (0.0-0.2); Platelet Count 182 K/mm3 (150-400); RDW Coefficient Variation 23.3 % (11.7-14.2); RDW Standard Deviation 90.5 fL (35.1-46.3); Red Blood Cell Count 2.33 M/mm3 (4.30-5.90); White Blood Cell Count 10.42 K/mm3 (4.00-11.30)
[2019-10-15 04:19] LABS: BAND PERCENT MAN 9 % (0-8); BASOPHILS PERCENT MAN 0 % (0-2); EOSINOPHILS PERCENT MAN 2 % (0-6); LYMPHOCYTES ABSOLUTE MAN 1.25 K/mm3 (0.84-5.20); LYMPHOCYTES PERCENT MAN 12 % (21-46); MONOCYTES ABSOLUTE MAN 0.31 K/mm3 (0.16-1.47); MONOCYTES PERCENT MAN 3 % (4-13); MYELOCYTE PERCENT MAN 2 % (0-0); NEUTROPHILS ABSOLUTE MAN 8.44 K/mm3 (1.96-9.15); SEG NEUTROPHILS PERCENT MAN 72 % (41-73); TOTAL CELLS COUNTED 100
[2019-10-15 04:25] LABS: Bun/Creatinine Ratio 4.2 (12.0-20.0); Calcium, Blood 8.2 mg/dL (8.5-10.1); Potassium, Blood 3.4 mmol/L (3.5-5.5)
--- NOTE | 2019-10-15 06:13 | NUR ---
Shift Summary Pt with 2 runs of asymptomatic VTACH recorded by telemetry and both runs placed in pt's paper chart. No other events overnight noted. Pt alert and oriented, able to make needs known with call light. VSS. Cardizem gtt titrated from 5 to 10 to 15 back down to 10 and back down to 5 this AM. HR sustaining in 70-80's. Pt with chronic ospina (changed in ED) draining bloody urine with clots. Irrigated x1 this shift with clots noted. This is an unchanged finding from ED report. Pt with peritoneal dialysis this shift. No acute changes from initial shift assessment. Pt remains in afib. Denies chest pain or pressure. Denies acute distress. Will continue to monitor and report off to day RN who assumes care.
--- NOTE | 2019-10-15 07:49 | NUR ---
AM NOTE. ASSUMED CARE OF PT APROX 0700. PT IS A&Ox4, PT WAS ADMITTED FOR AFIB RVR. CURRENTLY PT IS IN AFIB IN THE 70'S-80'S AND IS ON CARDIZEMG GTT AT 5MLS/HR. PT DENIES ANY CHEST PAIN/PRESSURE OR SOB OR PALPITATIONS. PT HAS CHRONIC COBB THAT IS DRAINING RAINES RED CLOTTED URINE. PT IS A PERITONEAL DIALYSIS PT WELL. PRN IRRIGATION NEEDED. PT'S BP 91/67, TEMP 99.8, RR 18 HR 78. PT USES FWW AT HOME. PT'S RLE HAS 1+ EDEMA. L/S CLEAR T/O DIM IN THE BASES. BT PRESENT AND HYPOACTIVE. ABD HAS PD PORT, PT WEARS ABD BINDER TO PROTECT PORT. CALL LIGHT IN REACH, BED IS LOCKED AND LOW WILL CONTINUE TO MONITOR.
--- NOTE | 2019-10-15 08:59 | NUR ---
DIALYSIS-PD PT IS ALERT AND ORIENTED. SITTING UP EATING BREAKFAST. DC'ED TX PER PROTOCDAVID. UF 1700 ID [id number]. FLUID VERY CLEAR YELLOW. SITE WNL. TUCKED THE END OF HIS CATH IN HIS CATH BELT.
[2019-10-15] MEDS ORDERED: POTA10T PO (16:00)
--- NOTE | 2019-10-15 16:55 | NUR ---
Urine in ospina catheter is bright red. Bladder scanner done, 50mL. Bladder was irrigated via ospina with 40 ml sterile water, twice. Total of 100 mL of liquid, without visible clots, return to gravity drain. Pt denies any pain. States he is having no difficulty breathing. Blood transfusion is in progress.
[2019-10-23] MEDS ORDERED: PANT40 PO (09:42)
[2019-10-23] MEDS ORDERED: Rena-Vite Tabl0.8 MG PO (09:43)
[2019-10-23] MEDS ORDERED: Vitamin D2000 UNIT PO (09:43)
[2019-10-23] MEDS ORDERED: ATOR40TA (09:44)
== END 2019-10-15 19:35 | disposition home or self-care (01) ==
LOC: ER 11:58 → PCU 11:59 → ER 19:39 → PCU 20:57
PROVIDERS: Nurse Practitioner Acute Care; Physician Assistant; ADMIT Internal Medicine
PROC: 30243N1 Transfusion of Nonautologous Red Blood Cells into Central Vein, Percutaneous Approach (ICD-10-PCS; principal; 2019-10-15)
DX: I48.4 Atypical atrial flutter (principal); I48.0 Paroxysmal atrial fibrillation; I12.0 Hypertensive chronic kidney disease with stage 5 chronic kidney disease or end stage renal disease; N18.6 End stage renal disease; I25.10 Atherosclerotic heart disease of native coronary artery without angina pectoris; C67.9 Malignant neoplasm of bladder, unspecified; D63.1 Anemia in chronic kidney disease; K21.9 Gastro-esophageal reflux disease without esophagitis; E03.9 Hypothyroidism, unspecified; E78.5 Hyperlipidemia, unspecified; M19.90 Unspecified osteoarthritis, unspecified site; R31.9 Hematuria, unspecified; E83.42 Hypomagnesemia; E66.9 Obesity, unspecified; Z68.30 Body mass index [BMI] 30.0-30.9, adult; Z99.2 Dependence on renal dialysis; Z95.5 Presence of coronary angioplasty implant and graft; Z91.048 Other nonmedicinal substance allergy status; Z79.82 Long term (current) use of aspirin; Z79.02 Long term (current) use of antithrombotics/antiplatelets; Z79.899 Other long term (current) drug therapy; Z66 Do not resuscitate
CPT/HCPCS: 36415; 36430; 51702; 51798; 71046; 80048; 80053; 81001; 83735; 84484; 85025; 86850; 86900; 86901; 86923; 87077; 87086; 87106; 87186; 93005; 93010; 96361; 96365; 96367; 96375; 96376; 99285-25; A9270; G0257; G0378; J0696; J0881; J3475; J7030; P9016

== ENCOUNTER 2019-10-21 09:19 | Day surgery (SDC) | payer MEDICARE, OTHER ==
[~2019-10-21 09:19] MED LIST changes: +FINA5 PO; +POTCIT10
[2019-10-21 14:29] LABS: Hematocrit 20.3 % (37.0-53.0); Hemoglobin 6.5 g/dL (13.5-17.5)
[2019-10-21] MEDS ORDERED: LIVALO2 MG PO (15:18)
--- NOTE | 2019-10-21 18:09 | NUR ---
IV LEFT IN FOR TRANSFUSION ON SATURDAY.
== END 2019-10-21 18:05 | disposition home or self-care (01) ==
LOC: ATC 09:19
PROVIDERS: Internal Medicine Cardiovascular Disease
PROC: 30243N1 Transfusion of Nonautologous Red Blood Cells into Central Vein, Percutaneous Approach (ICD-10-PCS; principal; 2019-10-21)
DX: N18.5 Chronic kidney disease, stage 5 (principal); D63.1 Anemia in chronic kidney disease; C67.9 Malignant neoplasm of bladder, unspecified; Z88.8 Allergy status to other drugs, medicaments and biological substances; Z91.048 Other nonmedicinal substance allergy status; Z79.02 Long term (current) use of antithrombotics/antiplatelets; Z79.82 Long term (current) use of aspirin; Z79.899 Other long term (current) drug therapy
CPT/HCPCS: 36415; 85014; 85018; 86850; 86900; 86901; 86923; J7050; P9016

== ENCOUNTER → 2019-11-17 | Outpatient (CLI) | payer MEDICARE, OTHER ==
[~2019-11-17] MED LIST changes: +ATOR40TA; +CALCIUM ACETAT667 M2 PO
[2019-11-17 14:53] LABS: BASOPHILS ABSOLUTE AUTO 0.04 K/mm3 (0.00-0.23); BASOPHILS PERCENT AUTO 1 % (0-2); EOSINOPHILS ABSOLUTE AUTO 0.33 K/mm3 (0.00-0.68); EOSINOPHILS PERCENT AUTO 5 % (0-6); Hematocrit 25.9 % (37.0-53.0); Hemoglobin 8.1 g/dL (13.5-17.5); IMMATURE GRAN ABSOLUTE AUTO 0.19 K/mm3 (0.00-0.10); IMMATURE GRAN PERCENT AUTO 3 % (0-1); LYMPHOCYTES ABSOLUTE AUTO 0.51 K/mm3 (0.84-5.20); LYMPHOCYTES PERCENT AUTO 7 % (21-46); MONOCYTES ABSOLUTE AUTO 0.85 K/mm3 (0.16-1.47); MONOCYTES PERCENT AUTO 12 % (4-13); Mean Corpuscular HGB 31.3 pg (26.0-34.0); Mean Corpuscular HGB Conc 31.3 g/dL (31.5-36.5); Mean Corpuscular Volume 100 fL (80-100); Mean Platelet Volume 8.8 fL (9.1-12.4); NEUTROPHILS ABSOLUTE AUTO 4.94 K/mm3 (1.96-9.15); NEUTROPHILS PERCENT AUTO 72 % (41-73); Platelet Count 234 K/mm3 (150-400); RDW Coefficient Variation 21.3 % (11.7-14.2); RDW Standard Deviation 74.9 fL (35.1-46.3); Red Blood Cell Count 2.59 M/mm3 (4.30-5.90); White Blood Cell Count 6.86 K/mm3 (4.00-11.30)
== END | disposition home or self-care (01) ==
LOC: LAB HH 13:14
PROVIDERS: Internal Medicine
DX: K92.2 Gastrointestinal hemorrhage, unspecified (principal)
CPT/HCPCS: 85025

== ENCOUNTER 2019-11-26 16:10 | Inpatient (IN) | payer MEDICARE, OTHER ==
[~2019-11-26] VITALS: Ht 162.6 cm; Wt 81.7 kg
[~2019-11-26 16:10] MED LIST changes: -CALCIUM ACETAT667 M2 PO
[2019-11-26 16:49] LABS: Source, Urine Catheter
[2019-11-26 16:58] LABS: BASOPHILS ABSOLUTE AUTO 0.09 K/mm3 (0.00-0.23); BASOPHILS PERCENT AUTO 1 % (0-2); EOSINOPHILS PERCENT AUTO 2 % (0-6); Hematocrit 29.6 % (37.0-53.0); Hemoglobin 9.6 g/dL (13.5-17.5); IMMATURE GRAN ABSOLUTE AUTO 0.59 K/mm3 (0.00-0.10); IMMATURE GRAN PERCENT AUTO 5 % (0-1); LYMPHOCYTES ABSOLUTE AUTO 0.65 K/mm3 (0.84-5.20); LYMPHOCYTES PERCENT AUTO 5 % (21-46); MONOCYTES ABSOLUTE AUTO 1.56 K/mm3 (0.16-1.47); MONOCYTES PERCENT AUTO 12 % (4-13); Mean Corpuscular HGB 32.5 pg (26.0-34.0); Mean Corpuscular HGB Conc 32.4 g/dL (31.5-36.5); Mean Corpuscular Volume 100 fL (80-100); Mean Platelet Volume 8.6 fL (9.1-12.4); NEUTROPHILS ABSOLUTE AUTO 9.77 K/mm3 (1.96-9.15); NEUTROPHILS PERCENT AUTO 75 % (41-73); NRBC ABSOLUTE 0.02 K/mm3 (0.00-0.02); NRBC Auto 0.2 /100 WBC (0.0-0.2); Platelet Count 238 K/mm3 (150-400); RDW Coefficient Variation 22.1 % (11.7-14.2); RDW Standard Deviation 75.6 fL (35.1-46.3); Red Blood Cell Count 2.95 M/mm3 (4.30-5.90); White Blood Cell Count 12.96 K/mm3 (4.00-11.30)
[2019-11-26 17:12] LABS: Bilirubin, Urine Neg (Neg); Glucose Qualitative, Urine Neg (Neg); Ketones, Urine 1+ (Neg); Leukocyte Esterase, Urine Neg (Neg); Nitrite, Urine Neg (Neg); Protein, Urine 4+ (Neg); Urobilinogen, Urine NORM (Normal)
[2019-11-26 17:15] LABS: Appearance, Urine Bloody (Clear); Blood, Urine 5+ (Neg); Color, Urine Red (P-Yellow)
[2019-11-26 17:16] LABS: Red Blood Cells, Urine TNTC /hpf (0-2); White Blood Cells, Urine TNTC /hpf (0-5)
[2019-11-26 17:17] LABS: Bacteria Many /hpf; Squamous Epithelial Cells Few /hpf (Few)
[2019-11-26 17:24] LABS: Albumin, Blood 2.3 g/dL (3.4-5.0); Albumin/Globulin Ratio 0.5 (0.8-1.8); Bilirubin, Total 0.3 mg/dL (0.1-1.0); Bun/Creatinine Ratio 3.8 (12.0-20.0); Calcium, Blood 8.5 mg/dL (8.5-10.1); Creatinine, Blood 8.59 mg/dL (0.60-1.20); Globulin, Blood 4.2 g/dL (2.2-4.0); Potassium, Blood 3.4 mmol/L (3.5-5.5); Total Protein, Blood 6.5 g/dL (6.4-8.2)
[2019-11-26] MEDS ORDERED: CALCIUM ACETAT667 M2 PO (19:09)
[2019-11-26] MEDS ORDERED: ATOR40TA PO (19:09)
[2019-11-26] MEDS ORDERED: QUET25 PO (21:15)
[2019-11-26] MEDS ORDERED: POTA10T PO (21:15)
[2019-11-26] MEDS ORDERED: SERT100 PO (21:16)
[2019-11-26] MEDS ORDERED: LIVALO2 MG PO (21:17)
[2019-11-26] MEDS ORDERED: PANT40 PO (21:17)
--- NOTE | 2019-11-26 23:37 | NUR ---
PT CAME IN WITH CHRONIC INDWELLING COBB, LEG BAG HAD SCANT BURGUNDY COLORED FLUID. PT IS A PERITONEAL DIALYSIS PT, CURRENTLY GETTING PD NIGHTLY. STERILE TECHNIQUE MAINTAINED, LIDOCAINE UROJET GIVEN PRIOR TO CATHETER INSERTION. 20 MONGOLIAN CATHETER PLACED WITH A 10 ML BALLOON. NO URINE PRESENT AT TIME OF INSERTION. PT TOLERATED WELL.
[2019-11-27 00:56] LABS: Source, Urine Catheter
[2019-11-27 01:00] LABS: Bilirubin, Urine Neg (Neg); Blood, Urine 5+ (Neg); Glucose Qualitative, Urine Neg (Neg); Ketones, Urine 1+ (Neg); Leukocyte Esterase, Urine Neg (Neg); Nitrite, Urine Neg (Neg); Protein, Urine 4+ (Neg); Urobilinogen, Urine NORM (Normal)
[2019-11-27 01:03] LABS: Appearance, Urine Turbid (Clear); Color, Urine Red (P-Yellow)
[2019-11-27 01:13] LABS: Amorphous Light (0-Heavy); Bacteria Few /hpf; Red Blood Cells, Urine TNTC /hpf (0-2); Squamous Epithelial Cells Not Seen /hpf (Few)
--- NOTE | 2019-11-27 04:48 | NUR ---
Shift Summary/ Admission Patient arrived to Medical Floor at 2025 on 11/26/2019. He is alert and slightly confused yet easily reoriented. He required 2 assist to pivot transfer. Noted a small open area to the right buttock which appears to be moisture/excoriation related. [place]-top barrier cream applied. Skin is dry and flakey overall. Urine is red with blood clots in catheter. Peritonial dialysis line noted to abdomen. Henson changed and specimen sent to lab, however patient has low urine output d/t CKD5. He is pleasant and cooperative. Daughter and son-in-law were present to give history.
[2019-11-27 05:34] LABS: Creatinine, Blood 9.41 mg/dL (0.60-1.20); Potassium, Blood 3.6 mmol/L (3.5-5.5)
--- NOTE | 2019-11-27 14:55 | NUR ---
pt alone increased cough. face puffy and pale will speakw ith him later and contact his daughter for support. pt has declined hospice in the past and they are fatigued with staff asking them about hospice. will review plan of care with dialysis staff.
--- NOTE | 2019-11-27 18:17 | NUR ---
PT C/O OF N/V, 300 ML EMESIS MEASURED. 4 MG IV ZOFRAN GIVEN. WILL MONITOR. JOSE ANGUIANO RN AT BEDSIDE SETTING UP PD AT THIS TIME.
--- NOTE | 2019-11-27 18:38 | NUR ---
PT MUCH MORE AWAKE AND ORIENTED THIS AFTERNOON COMPARED TO THIS MORNING, DID REPORT SOME N/V THIS EVENING, 1814, WAS MEDICATED WITH 4MG IV ZOFRAN TO GOOD EFFECT. PD STARTED BY JOSE ANGUIANO RN. NO ACUTE CHANGES NOTED THIS SHIFT, WILL CONTINUE TO MONITOR AND REPORT TO ONCOMING RN
--- NOTE | 2019-11-27 18:40 | NUR ---
DIALYSIS-PD TOOK MACHINE AND SUPPLIES TO PT ROOM TO SETUP. PT HAD BEEN EATING HIS DINNER AND STARTED VOMITING. THE GRANDDAUGHTER SAID THAT HE DOES THAT ALOT WHEN HE EATS. THE NURSE CLEANED HIM UP AND GOT HIM READY FOR BED. 1829 CONNECTED PT TO PD PER MAIKEL. CLEANED SITE WITH NEW DRESSING. SITE WNL.
--- NOTE | 2019-11-28 04:28 | NUR ---
Shift Summary Patient slept well overnight. Assisted to reposition q2h. Peritoneal dialysis machine is connected and running without issue.
[2019-11-28 05:09] LABS: BASOPHILS ABSOLUTE AUTO 0.05 K/mm3 (0.00-0.23); BASOPHILS PERCENT AUTO 1 % (0-2); EOSINOPHILS PERCENT AUTO 3 % (0-6); Hematocrit 22.2 % (37.0-53.0); Hemoglobin 6.9 g/dL (13.5-17.5); IMMATURE GRAN ABSOLUTE AUTO 0.42 K/mm3 (0.00-0.10); IMMATURE GRAN PERCENT AUTO 4 % (0-1); LYMPHOCYTES ABSOLUTE AUTO 0.37 K/mm3 (0.84-5.20); LYMPHOCYTES PERCENT AUTO 4 % (21-46); MONOCYTES ABSOLUTE AUTO 0.86 K/mm3 (0.16-1.47); MONOCYTES PERCENT AUTO 8 % (4-13); Mean Corpuscular HGB 31.8 pg (26.0-34.0); Mean Corpuscular HGB Conc 31.1 g/dL (31.5-36.5); Mean Corpuscular Volume 102 fL (80-100); NEUTROPHILS ABSOLUTE AUTO 8.41 K/mm3 (1.96-9.15); NEUTROPHILS PERCENT AUTO 81 % (41-73); Platelet Count 182 K/mm3 (150-400); RDW Coefficient Variation 21.3 % (11.7-14.2); RDW Standard Deviation 76.2 fL (35.1-46.3); Red Blood Cell Count 2.17 M/mm3 (4.30-5.90); White Blood Cell Count 10.41 K/mm3 (4.00-11.30)
[2019-11-28 05:34] LABS: Magnesium, Blood 1.5 mg/dL (1.6-2.4)
[2019-11-28 05:55] LABS: Albumin, Blood 1.8 g/dL (3.4-5.0); Anion Gap 10 mmol/L (6-16); Blood Urea Nitrogen 39 mg/dL (8-24); Bun/Creatinine Ratio 4.3 (12.0-20.0); CO2, Blood 26 mmol/L (21-32); Calcium, Blood 7.9 mg/dL (8.5-10.1); Chloride, Blood 101 mmol/L (98-108); Creatinine, Blood 9.05 mg/dL (0.60-1.20); Glomerular Filtration Rate 6 (60-); Glucose, Blood 113 mg/dL (70-99); Phosphorus, Blood 5.2 mg/dL (2.5-4.9); Potassium, Blood 3.4 mmol/L (3.5-5.5); Sodium, Blood 137 mmol/L (136-145)
--- NOTE | 2019-11-28 07:05 | NUR ---
PATIENT RESTING IN BED UPON ENTRY TO ROOM THIS AM. WAKENS EASILY TO FULL ORIENT. NO VERB DISCOMFORT AT THIS TIME. OVERNIGHT CCPD COMPLETE. PATIENT AESEPTICALLY DISCONNECTED AND CAPPED WITH NEW MINI-CAP. CYCLER STRIPPED AND CLEANED. DR RODRÍGUEZ CONSULTED VIA PHONE REGARDING NEW ORDERS / PLAN OF CARE.
--- NOTE | 2019-11-28 12:52 | NUR ---
Pt visit this AM. Pt resting in bed eating lunch and receiving blood transfusion. Pt denies pain and dyspnea at this time. Pt states his breathing has improved. Pt's son in law Domingo at bedside. Answered some questions and concerns and deferred other concerns to hospitalist. Domingo request to speak with hospitalist. Pt and son in law express appreciation of visit and no other concerns reported at this time. Spoke with Dr Winston, relayed concerns and request for her to visit with family. Palliative Care will remain available.
--- NOTE | 2019-11-28 13:50 | NUR ---
Bowel movement Patient had BM today loose, brown, med with bright red scant blood possibly from hemorroid. Potassium pill was also found undigested. Dr. Winston aware of the pill, recommended potassium elixir instead.
--- NOTE | 2019-11-28 16:53 | NUR ---
Shift Summary A/O x4. Pt calls appropriately for needs. Pt has nonproductive cough throughout the day, son-in-law has been at the bedside and a huge advocate for patient. Pt continues to be 2p stand pivot transfer to the bedside commode, produced an unformed brown med bm with a little incontinence and scant amounts of bright red blood likely from hemorroid. Remains on 1.5L oxygen. Complained of nausea x 1; declined antinausea medication. Pt received 1 unit PRBC today, denies abdominal discomfort. Up in chair for a part of the day and he also worked with physical therapy today. No other acute concerns.
--- NOTE | 2019-11-28 17:54 | NUR ---
PATIENT AWAKE / ALERT / ORIENTED. RESTING COMFORTABLY IN BED. FOLLOWING CONSULTATION WITH DR KING, CYCLER SET UP, PRIMED AND PROGRAMMED PER ORDERS. PERITONEAL EFFLUENT SAMPLE FOR CULTURE, GRAM STAIN AND CELL COUNT OBTAINED AND TRANSPORTED TO LAB. FOLLOWING COMPLETION OF CYCLER PRIME PATIENT WAS AESEPTICALLY CONNECTED AND THERAPY STARTED. PATIENT MINITORED THOUGH INITIAL DRAIN AND START OF FILL #1 TO ASSESS PATIENT COMFORT AND TOLERANCE OF THERAPY. NO ISSUES NOTED OR REPORTED EXIT SITE CARE DONE. SITE CLEAR, DRY AND TIGHT WITH NO TENDERNESS. NEW STERILE DRESSING APPLIED WITH ONE STRAIN RELIEF AND TUBING ROUTED THROUGH PATIENTS PD BELT. MED FLOOR STAFF AWARE OF OVERNIGHT THERAPY IN PROGRESS.
[2019-11-28 18:18] LABS: Body Fluid WBC Count 30 /mm3 (0-999)
[2019-11-28 18:39] LABS: Glucose, Body Fluid 166 mg/dL; Protein, Body Fluid 0.2 g/dL
[2019-11-28 19:25] LABS: RBC Count, Body Fluid 1 /mm3 (0-0)
[2019-11-28 19:29] LABS: Appearance, Body Fluid Clear (Clear); Color, Body Fluid No color (None-Yellow)
[2019-11-28 19:34] LABS: Total Cell Count, Body Fluid 100
--- NOTE | 2019-11-29 04:32 | NUR ---
SHIFT SUMMARY PT FOUND WITH INTERMITENT MOIST HACKING COUGH. PT FOUND THIS AM WITH INCREASED WET LUNGS AND +1 BLE EDEMA. FLUIDS STOPPED AND WILL REASSES. WILL PASS ONTO DAY RN. PT HAD PINK URINE OUTPUT WITH NOTED SEDIMENT. PT TOLERATED PERITONEAL DIALYSIS WELL. PT HAS BEEN ON 2 LPM O2 SINCE START OF SHIFT. PT DENIES SOB, JUST CONTINUED COUGH. PT REPOSITIONED WITH HOB ELEVATED AND IS RESTING COMFORTABLY. CALL LIGHT IN REACH. WILL CONTINUE TO MONITOR.
[2019-11-29 05:04] LABS: BASOPHILS ABSOLUTE AUTO 0.07 K/mm3 (0.00-0.23); BASOPHILS PERCENT AUTO 1 % (0-2); EOSINOPHILS ABSOLUTE AUTO 0.23 K/mm3 (0.00-0.68); EOSINOPHILS PERCENT AUTO 2 % (0-6); Hematocrit 28.6 % (37.0-53.0); Hemoglobin 9.3 g/dL (13.5-17.5); IMMATURE GRAN ABSOLUTE AUTO 0.62 K/mm3 (0.00-0.10); IMMATURE GRAN PERCENT AUTO 5 % (0-1); LYMPHOCYTES ABSOLUTE AUTO 0.64 K/mm3 (0.84-5.20); LYMPHOCYTES PERCENT AUTO 5 % (21-46); MONOCYTES ABSOLUTE AUTO 0.74 K/mm3 (0.16-1.47); MONOCYTES PERCENT AUTO 6 % (4-13); Mean Corpuscular HGB 32.4 pg (26.0-34.0); Mean Corpuscular HGB Conc 32.5 g/dL (31.5-36.5); Mean Corpuscular Volume 100 fL (80-100); Mean Platelet Volume 9.1 fL (9.1-12.4); NEUTROPHILS PERCENT AUTO 83 % (41-73); NRBC ABSOLUTE 0.02 K/mm3 (0.00-0.02); NRBC Auto 0.2 /100 WBC (0.0-0.2); Platelet Count 179 K/mm3 (150-400); RDW Coefficient Variation 20.4 % (11.7-14.2); Red Blood Cell Count 2.87 M/mm3 (4.30-5.90)
[2019-11-29 05:40] LABS: Magnesium, Blood 1.5 mg/dL (1.6-2.4)
[2019-11-29 05:43] LABS: Anion Gap 11 mmol/L (6-16); Blood Urea Nitrogen 35 mg/dL (8-24); Bun/Creatinine Ratio 4.2 (12.0-20.0); CO2, Blood 27 mmol/L (21-32); Calcium, Blood 8.9 mg/dL (8.5-10.1); Chloride, Blood 102 mmol/L (98-108); Glomerular Filtration Rate 7 (60-); Glucose, Blood 138 mg/dL (70-99); Phosphorus, Blood 5.3 mg/dL (2.5-4.9); Potassium, Blood 3.8 mmol/L (3.5-5.5); Sodium, Blood 140 mmol/L (136-145)
--- NOTE | 2019-11-29 08:16 | NUR ---
PATIENT RESTING QUIETLY UPON ENTRY TO ROOM THIS MORNING. WAKENS EASILY TO FULL ORIENT. NO CURRENT DISTRESS NOTED OR REPPORTED. OVERNIGHT CCPD COMPLETE. PATIENT AESEPTICALLY DISCONNECTED AND CATHETER CAPPED WITH NEW MINI-CAP AND SECURED IN PATIENT'S PD BELT. CYCLER STRIPPED AND CLEANED. EFFLUENT REMAINS CLEAR / SHARITA.
--- NOTE | 2019-11-29 09:10 | NUR ---
TELEMETRY MONITORING PATIENT'S HEART RATE IS >146 VIA MONITOR, [address] MARIN, TELE MONITORING ORDERED.
--- NOTE | 2019-11-29 09:55 | NUR ---
Telemetry reading Tele in place. Rate/Rhythm: Afib 110
--- NOTE | 2019-11-29 13:56 | NUR ---
Potassium Potassium tablet was excreted through feces undigested. Dr. Winston notified, received orders to change to liquid form.
--- NOTE | 2019-11-29 18:17 | NUR ---
PATIENT RESTING COMFORTABLY IN BED THIS AFTERNOON. WAKENS TO FULL ORIENT WITH VERBAL STIMULUS. CYCLER SET UP, PRIMED AND PROGRAMMED PER DR KING'S RX. PATIENT AESEPTICALLY CONNECTED WHEN PRIME COMPLETE AND OVERNIGHT CCPD THERAPY STARTED. PATIENT MONITORED THROUGH INITIAL DRAIN AND START OF FILL#1 TO ASSESS TOLERANCE. NO DISCOMFORT REPORTED. EXIT SITE CARE DONE. SITE CLEANSED WITH EXCEPT AND STERILE GAUZE THEN NEW STERILE DRESSING APPLIED WITH ONE STRAIN RELIEF. LINE THEN ROUTED THROUGH PATIENT'S PD BELT FOR ADITIONAL SECURITY. MED FLOOR STAFF AWARE OF OVERNIGHT CCPD THERAPY IN PROGRESS.
--- NOTE | 2019-11-29 18:19 | NUR ---
Shift Summary Patient's cough remains present but does show some improvement in frequency and wetness. Patient declined to sit in chair for breakfast when offered. Henson patent and draining although not much output. Bilateral lower extremities show trace edema which is the same as yesterday. Mepilex dressing changed, no other concerns.
[2019-11-30 05:02] LABS: BASOPHILS ABSOLUTE AUTO 0.05 K/mm3 (0.00-0.23); BASOPHILS PERCENT AUTO 0 % (0-2); EOSINOPHILS ABSOLUTE AUTO 0.18 K/mm3 (0.00-0.68); EOSINOPHILS PERCENT AUTO 2 % (0-6); Hematocrit 25.5 % (37.0-53.0); Hemoglobin 8.2 g/dL (13.5-17.5); IMMATURE GRAN ABSOLUTE AUTO 0.25 K/mm3 (0.00-0.10); IMMATURE GRAN PERCENT AUTO 2 % (0-1); LYMPHOCYTES ABSOLUTE AUTO 0.67 K/mm3 (0.84-5.20); LYMPHOCYTES PERCENT AUTO 6 % (21-46); MONOCYTES ABSOLUTE AUTO 0.65 K/mm3 (0.16-1.47); MONOCYTES PERCENT AUTO 6 % (4-13); Mean Corpuscular HGB 32.3 pg (26.0-34.0); Mean Corpuscular HGB Conc 32.2 g/dL (31.5-36.5); Mean Corpuscular Volume 100 fL (80-100); Mean Platelet Volume 9.5 fL (9.1-12.4); NEUTROPHILS ABSOLUTE AUTO 9.65 K/mm3 (1.96-9.15); NEUTROPHILS PERCENT AUTO 84 % (41-73); Platelet Count 161 K/mm3 (150-400); RDW Coefficient Variation 20.3 % (11.7-14.2); RDW Standard Deviation 70.1 fL (35.1-46.3); Red Blood Cell Count 2.54 M/mm3 (4.30-5.90); White Blood Cell Count 11.45 K/mm3 (4.00-11.30)
[2019-11-30 05:43] LABS: Albumin, Blood 1.8 g/dL (3.4-5.0); Anion Gap 8 mmol/L (6-16); Blood Urea Nitrogen 35 mg/dL (8-24); CO2, Blood 28 mmol/L (21-32); Calcium, Blood 8.6 mg/dL (8.5-10.1); Chloride, Blood 101 mmol/L (98-108); Glucose, Blood 144 mg/dL (70-99); Phosphorus, Blood 3.9 mg/dL (2.5-4.9); Potassium, Blood 3.6 mmol/L (3.5-5.5); Sodium, Blood 137 mmol/L (136-145)
[2019-11-30 05:45] LABS: Bun/Creatinine Ratio 4.3 (12.0-20.0); Creatinine, Blood 8.06 mg/dL (0.60-1.20); Glomerular Filtration Rate 7 (60-)
--- NOTE | 2019-11-30 06:13 | NUR ---
SHIFT SUMMARY PT IS AN 84 Y/O MALE, ADMITTED FOR ACUTE METABOLIC ENCEPHALOPATHY. HE IS A&O X 3, AND A 2P ASSIST OUT OF BED. PT HAS HAD AN INTERMITTENT PRODUCTIVE COUGH DURING THE NIGHT. PER TELE MONITOR, HE RAN TACHY IN THE 100-120S THROUGH THE NIGHT. HIS AM BP ALSO RAN LOW AT 96/56. VITALS OTHERWISE STABLE. PT CURRENTLY ON 2L OF O2 VIA NC. HE HAS A CHRONIC COBB IN PLACE, WITH MINIMAL OUTPUT. PT IS A PERITONEAL DIALYSIS PT, AND HAS BEEN ON DIALYSIS THROUGH THE NIGHT. NO COMPLAINTS OF PAIN, NAUSEA OR SOB. NO ACUTE CHANGES IN PT CONDITION NOTED DURING THE NIGHT. WILL CONTINUE TO MONITOR AND TREAT PER EMAR UNTIL HAND OFF TO DAY SHIFT RN.
--- NOTE | 2019-11-30 07:56 | NUR ---
DIALYSIS-PD TOOK SUPPLIES TO PT'S ROOM. DC'ED TX PER MAIKEL. ID [id number], UF [id number]. PT RESTING QUIETLY. SOME COUGHING. APPEARED ALERT AND ORIENTED. SOLUTION CLEAR. SMALL AMT OF FIBRIN SEEN.
--- NOTE | 2019-11-30 08:52 | NUR ---
NOTIFIED DR. DOSHI BLD PRESS 90'S SYSTOLIC AND HEART RATE 130'S AFIB. 130'S INTERMITTENT LAST NITE. FLUID BOLUS AND MAKE SURE SCD'A ON
--- NOTE | 2019-11-30 10:58 | NUR ---
TRANSFERRED TO ICU6. NOTIFIED. REPORT GIVEN TO DECONTAMINATION TECHNICIAN.
--- NOTE | 2019-11-30 11:00 | NUR ---
ARRIVAL NOTE: PT ARRIVED VIA BED. TNX'D AND ORIENTED PT TO ROOM. PT IS DUSKY APPEARING UPON ARRIVAL AND BP REMAINS LOW. PT HAD REC'D 250ML NS BOLUS FROM MEDICAL FLOOR RN EARLIER THIS SHIFT. PT NOW REC'ING 1 FULL LITER OF NS AND REMAINS HYPOTENSIVE AT THIS TIME. ADDING DR HAMLIN TO PT'S CASE FOR HYPOTENSION AND SHE IS AT THE BEDSIDE TO CONSULT ON PT. PT SOMEWHAT DROWSY BUT AWAKENS TO VOICE. PT V[place]ET[place] AND IS CURRENTLY WEARING BILATERAL HEARING AIDS. PT ABLE TO MINIMALLY ASSIST WITH REPOSITIONING. PT ORIENTED TO SELF/FAMILY/SITIATION AND FOLLOW COMMANDS AND ANSWERING QUESTIONS APPROPRIATLEY. ADD'L IV ACCEDSS OBTAINED IN LT FA. LUNGS ARE VERY TIGHT/WHEEZY/DIMINISHED IN BILATERAL BASES AND COARSE IN THE BILATERAL BASES, WHICH CLEAR SLIGHTLY WITH WEAK, NON-PRODUCTIVE COUGH. SPUTUM NEEDED. PT AND FAMILY AWARE AND SPECIMENT CUP AT THE BEDSIDE. HR LABILE. PT ARRIVED AT ATRIAL FIB-130'S, ONCE PT REC'D MORE IVF'S HR AT TIMES WILL DECREASE TO 110-120'S RANGE. ABD SOFT/ROUND/TENDER TO PALPATION IN LOWER QAUDS. HYPOACTIVE BT'S. PT TO BE NPO UNTIL SWALLOW EVALUATION IS COMPLETE. PT REPORTS SOME MILD NAUSEA AT THIS TIME. PT HAD A BROWN SMEAR BM, WHEN REPOSITIONING ON ARRIVAL. CHRONIC COBB CATHETER IN PLACE (CHANGED UPON ADMISSION). URINE IS DARK ORANGE/CLOUDY/WITH SEDIMENT IN SMALL AMTS DRAINING. PT HAS A HX OF BLADDER CA AND FAMILY REPORTS THEY DID A "SCRAPING BUT THE CA WENT INTO THE BLADDER WALL" AND PT IS NOT A SURGICAL CANIDATE AT THIS TIME FOR FULL BLADDER REMOVAL. -LACTIC ACID AND F/U H+H DRAWN -START SEPSIS PROTOCOL -OBTAIN SPUTUM/URINE SPECIMEN WHEN AVAILABLE -DNR STATUS
[2019-11-30 11:09] LABS: PCO2 Arterial 47.6 mmHg (35-45); PO2 Arterial 87.8 mmHg (80-100); pH Blood Arterial 7.35 (7.35-7.45)
[2019-11-30 11:45] LABS: Hematocrit 24.3 % (37.0-53.0); Hemoglobin 7.8 g/dL (13.5-17.5)
--- NOTE | 2019-11-30 13:45 | NUR ---
DIALYSIS-PD NO PD TONIGHT PER DR KING, DUE TO DEHYDRATION.
--- NOTE | 2019-11-30 17:22 | NUR ---
SHIFT SUMMARY: PT WITH MARKED IMPROVEMENT SINCE ARRIVAL TO UNIT. PT HAS REC'D A TOTAL OF 3 LITERS OF NS THIS SHIFT, THEN WILL FINISH WITH 1 ADD'L LITER OF NS@ 100ML/HR. PT DOES HAVE LEVOPHED ON STANDBY PRN. PICC LINE PLACED IN THE LT UA WITHOUT DIFFICULTY BY THIS RN R/T POTENTIAL NEED FOR VASOPRESSORS. PT ALERT AND ORIENTED TO PERSON/PLACE/SITUATION/FAMILY. FOLLOWS DIRECTIONS/ANSWERS QUESTIONS APPROPRIATELY, HOWEVER, PT CONTINUES TO MAKE NON-SENSICAL STATEMENTS AT TIMES. LUNGS REMAIN TIGHT/WHEEZY T/O BILATERALLY AND DIMINISHED IN THE BILATERAL BASES, LT >RT. NEBULIZER TX'S ADDED TO PT'S REGIMEN. SATS >90% ON 2L 02 VIA N/C. HR REMAINS LABILE, IRREGULARLY IRREGULAR, ATRIAL FIB 110-130'S. MAPS NOW >65 AFTER 3L NS AND 1 UNIT PRBC'S FOR LOW H+H. PT WITH VERY POOR URINE OUTPUT THIS SHIFT (25ML) 2 SPECIMENS SENT OFF IN ATTEMPT TO URINE UA WITH CX, HOWEVER, FIRST SPECIMEN DELCINED R/T NOT ENOUGH SPECIMEN. 2ND SPECIMENT SENT RECENTLY. MEPILEX IN PLACE TO COCCYX FOR SKIN BREAKDOWN. PT REMAINS AFEBRILE AT THIS TIME.
[2019-11-30 17:41] LABS: Source, Urine Catheter
[2019-11-30 17:48] LABS: Bilirubin, Urine Neg (Neg); Blood, Urine 5+ (Neg); Glucose Qualitative, Urine Neg (Neg); Ketones, Urine 1+ (Neg); Leukocyte Esterase, Urine 3+ (Neg); Nitrite, Urine Neg (Neg); Protein, Urine 3+ (Neg); Urobilinogen, Urine NORM (Normal)
[2019-11-30 17:50] LABS: Appearance, Urine Turbid (Clear); Color, Urine Yellow (P-Yellow)
[2019-11-30 17:52] LABS: Bacteria Many /hpf; Squamous Epithelial Cells Rare /hpf (Few); White Blood Cells, Urine TNTC /hpf (0-5)
--- NOTE | 2019-11-30 19:00 | NUR ---
REPORT BEDSIDE REPORT RECEIVED FROM NGUYỄN RAYGOZA. PT RESTING IN BED, ALERT & ORIENTED, [place] WITH BLEVINS TO RT EAR ONLY, LEFT BLEVINS IN SPECIMEN CUP AT BEDSIDE. DAUGHTER AT BEDSIDE AND EDUCATION ABOUT NOC ROUTINE AND AM PROCEDURE DISCUSSED. PT HAS #3 NS INFUSING @ 100CC/HR VIA LT PICC LINE, SL TO LT WRIST AND LT FA. VS STABLE AT THIS TIME, DENIES PAIN. SCDs IN PLACE, CALL LIGHT IN REACH, BED IN LOW POSITION. WILL CONTINUE TO MONITOR PT THIS SHIFT.
--- NOTE | 2019-11-30 21:00 | NUR ---
BEGIN SHIFT NOTE PT RESTING IN BED, AROUSES TO VOICE. DAUGHTER WENT HOME, SON AT BEDSIDE AND STATES WILL GO HOME LATER [place]. PT DENIES PAIN AT THIS TIME, REPOSITIONED FOR COMFORT. HEART RATE 110-140s, REMAINS IN A-FIB. LUNGS TIGHT WITH WHEEZES TO BUL AND DIMINISHED TO BLL, RT TX GIVEN. PT HAS MOIST NON-PRODUCTIVE COUGH AND REMINDED OF NEED FOR SAMPLE WHEN PRODUCTIVE. BOWEL SOUNDS HYPOACTIVE, ABDOMEN ROUND AND SOFT, HERNIA NOTED. DEPENDENT EDEMA NOTED TO EXTREMITIES, SON STATES THIS IS NORMAL FOR PT. SHUNT TO RIGHT FOREARM, GOOD BRUITES & THRILL AND SKIN WNL. COBB IN PLACE WITH SCANT AMOUNT OF THICK ORANGE URINE NOTED IN TUBING. REDNESS NOTED TO COCCYX AND SMALL OPEN AREA TO RT BUTTOCK. SCDs ON, CALL LIGHT IN REACH, BED IN LOW POSITION. WILL CONTINUE TO MONITOR PT THIS SHIFT.
--- NOTE | 2019-12-01 06:20 | NUR ---
SHIFT SUMMARY PT RESTING IN BED THIS SHIFT, TURNS SIDE TO SIDE WITH ASSIST X2 FOR COMFORT. PT HAS CHRONIC PAIN BUT DENIES NEED FOR PAIN MEDICATIONS THIS SHIFT. NS X1L GIVEN THIS SHIFT PER PICC IN LT UPPER ARM. SL TO LT FA & LT WRIST. HEART RATE 120-130s, REMAINS IN A-FIB. LUNGS WITH WHEEZES THROUGHOUT AND O2 @ 2L/NC, SATS >95%. BOWEL SOUNDS PRESENT, BM X1 THIS SHIFT PER BEDPAN. PT HAD 15cc THICK ORANGE URINE OUT PER COBB CATHETER. PT GETS PERITONEAL DIALYSIS AND DRSG TO ABD REMAINS WNL; SHUNT TO RT ARM WNL. COCCYX REMAINS SLIGHTLY RED AND OPEN TO AIR. PT USES CALL LIGHT APPROPRIATELY AT TIMES, TABLE & CALL LIGHT IN REACH, RAILS UP X3 FOR SAFETY, BED IN LOW POSITION. WILL CONTINUE TO MONITOR PT REMAINDER OF SHIFT.
[2019-12-01 06:22] LABS: BASOPHILS ABSOLUTE AUTO 0.03 K/mm3 (0.00-0.23); BASOPHILS PERCENT AUTO 0 % (0-2); EOSINOPHILS ABSOLUTE AUTO 0.19 K/mm3 (0.00-0.68); EOSINOPHILS PERCENT AUTO 2 % (0-6); Hematocrit 27.7 % (37.0-53.0); Hemoglobin 8.8 g/dL (13.5-17.5); IMMATURE GRAN ABSOLUTE AUTO 0.26 K/mm3 (0.00-0.10); IMMATURE GRAN PERCENT AUTO 3 % (0-1); LYMPHOCYTES ABSOLUTE AUTO 0.48 K/mm3 (0.84-5.20); LYMPHOCYTES PERCENT AUTO 5 % (21-46); MONOCYTES ABSOLUTE AUTO 0.77 K/mm3 (0.16-1.47); MONOCYTES PERCENT AUTO 8 % (4-13); Mean Corpuscular HGB 31.3 pg (26.0-34.0); Mean Corpuscular HGB Conc 31.8 g/dL (31.5-36.5); Mean Corpuscular Volume 99 fL (80-100); Mean Platelet Volume 8.9 fL (9.1-12.4); NEUTROPHILS ABSOLUTE AUTO 8.42 K/mm3 (1.96-9.15); NEUTROPHILS PERCENT AUTO 83 % (41-73); Platelet Count 138 K/mm3 (150-400); RDW Coefficient Variation 21.8 % (11.7-14.2); RDW Standard Deviation 74.7 fL (35.1-46.3); Red Blood Cell Count 2.81 M/mm3 (4.30-5.90); White Blood Cell Count 10.15 K/mm3 (4.00-11.30)
[2019-12-01 06:44] LABS: Troponin I 0.116 ng/mL (0.000-0.040)
[2019-12-01 06:49] LABS: Alanine Aminotransfer (ALT/SGP 56 U/L (12-78); Albumin, Blood 1.6 g/dL (3.4-5.0); Albumin/Globulin Ratio 0.4 (0.8-1.8); Alk Phos 98 U/L (50-136); Anion Gap 9 mmol/L (6-16); Aspartate Aminotrans (AST/SGOT 58 U/L (12-37); Bilirubin, Total 0.3 mg/dL (0.1-1.0); Blood Urea Nitrogen 42 mg/dL (8-24); CO2, Blood 23 mmol/L (21-32); Calcium, Blood 8.1 mg/dL (8.5-10.1); Chloride, Blood 109 mmol/L (98-108); Globulin, Blood 3.6 g/dL (2.2-4.0); Glucose, Blood 87 mg/dL (70-99); Phosphorus, Blood 5.5 mg/dL (2.5-4.9); Potassium, Blood 4.3 mmol/L (3.5-5.5); Sodium, Blood 141 mmol/L (136-145); Total Protein, Blood 5.2 g/dL (6.4-8.2); Vancomycin, Random 12.9 ug/mL
[2019-12-01 06:51] LABS: Bun/Creatinine Ratio 5.1 (12.0-20.0); Glomerular Filtration Rate 7 (60-)
--- NOTE | 2019-12-01 07:45 | NUR ---
ASSUMED CARE PT. ALERT AND ORIENTED IN ROOM. CURRENTLY ON 4LNC. AUDIBLE WHEEZES NOTED. PT. AWAKENS EASILY TO VERBAL STIMULI, NEEDS ASSISTANCE TO REPOSITION IN BED. VSS THIS AM. CALL LIGHT IN REACH.
--- NOTE | 2019-12-01 11:47 | NUR ---
PT WAS TAKEN DOWN FOR ESOPHAGRAM. PT TOLERATED WELL. VSS REMAIN STABLE. PT FAMILY AT BEDSIDE.
--- NOTE | 2019-12-01 15:25 | NUR ---
SKIN PT PLACED ON BED [place]BAR[place]O AND PARTIAL BATH DONE, SMALL SCABS NOTED ALL OVER PT BACK, ON HIS SIDES, AND A SMALL AMOUNT ON HIS CHEST. DR. HAMLIN IN TO ASSESS. CREAM APPLIED TO PT BUTTOCKS, RED AND TENDER. PILLOWS PLACED TO KEEP PT OFF OF BUTTOCKS. SON REMAINS AT BEDSIDE.
--- NOTE | 2019-12-01 17:19 | NUR ---
SHIFT SUMMARY PT. REMAINS ALERT T/O DAY. ESOPHAGRAM DONE TODAY. PT TO REMAIN NPO UNTIL REEVAL WITH SPEECH THERAPY TOMORROW PER DR. HAMLIN. PT REMAINS ON 3LNC T/O DAY, AUDIBLE WHEEZES NOTED AND RR INCREASES WITH ANY ACTIVITY. PT. CONTINUES WITH MOIST NON PRODUCTIVE COUGH. PT. HAD VERY LITTLE URINE OUPUT TODAY, PLANS FOR PD TONIGHT. COBB REMAINS IN PLACE, DRAINING TO GRAVITY. PT REPOSITIONED Q2H; BUTTOCKS RED, BARRIER CREAM IN PLACE. FAMILY AT BEDSIDE T/O DAY. REPORT TO ONCOMING NURSE
--- NOTE | 2019-12-01 17:20 | NUR ---
MIG TIG WELDER AT BEDSIDE, PD STARTED PER DR. KING
--- NOTE | 2019-12-01 18:01 | NUR ---
DIALYSI-PD 174 PT CONNECTED TO PD PER PROTOCAL. SON IN LAW PRESENT. PT QUIET, USING YELLOW BAGS (1.5% DEXTROSE). 12 HOUR TX, 5 FILLS.
--- NOTE | 2019-12-01 18:30 | NUR ---
RESP DISTRESS PT. WORK OF BREATHING INCREASED SIGNIFICANTLY, RR IN THE HIGH 20S-30. AUDIBLE WHEEZES PRESENT, LS TIGHT, COARSE, WITH WHEEZES. PT REPORTS DIFFICULTY BREATHING. RT CALLED TO BEDSIDE FOR BREATHING TX. CALL TO DR. HAMLIN TO REPORT CHANGE IN RESP STATUS. BIPAP ORDERED, AND ORDER TO STOP PD. STAT CHEST XRAY ORDERED WELL SOLUMEDROL. PT. PLACED ON BIPAP INITIAL SETTINGS OF 10/5, 40% WITH SETTINGS ADJUSTED TO 14/6, 35% BY RT. PT WOB DECREASED POST BIPAP PLACEMENT AND AFTER STOPPING PD.
--- NOTE | 2019-12-01 18:49 | NUR ---
DIALYSIS-PD AFTER PD STARTED PT BECAME VERY SOB. QUALITY CONTROL DIRECTOR CALLED ME BACK TO THE ROOM. I CALLED DR KING. SHE SAID TO DC AND DRAIN TX. SHE WANS HD DONE TOMORROW IF FISTULA IS ABLE TO BE USED.. DRAING TX.
--- NOTE | 2019-12-01 18:59 | NUR ---
UPDATE PT. RESTING COMFORTABLY ON BIPAP AT THIS TIME. FAMILY REMAINS AT BEDSIDE. RR NOW 18, HR DECREASED TO 120S. [employer] REMAINS AT BEDSIDE DRAINING PD.
--- NOTE | 2019-12-01 20:58 | NUR ---
ASSUMPTION OF CARE: PT AWAKE DURING SHIFT CHANGE. ORIENTED. CURRENTLY IN AFIB W/ RVR. SBP IN THE 80S, HR 120-130S. ON BIPAP 14/6 30% WHEEZES AND COARSENESS IN UPPER LOBES, DIM IN BASES. PT IS CURRENTLY NPO D/T ASPIRATION RISK AND POSS ESOPH STRICTURE. PT HAS CHRONIC COBB IN PLACE WITH MINIMAL URINE OUTPUT. R ARM FISTULA PRESENT NOTED. CAN FEEL ON PALPATION. HAS CHRONIC COBB IN PLACE. NELLIE PICC WNL. LAC IV PATENT AND SL. L WRIST IV NOT PATENT. WILL D/C BOTH. BT PRESENT. FAMILY AT BEDSIDE.
--- NOTE | 2019-12-01 21:29 | NUR ---
RFA FISTULA. ABLE TO PALPATE AND FEEL THRILL AND HEAR BRUIT.
[2019-12-02 03:16] LABS: BASOPHILS ABSOLUTE AUTO 0.03 K/mm3 (0.00-0.23); BASOPHILS PERCENT AUTO 0 % (0-2); EOSINOPHILS ABSOLUTE AUTO 0.01 K/mm3 (0.00-0.68); EOSINOPHILS PERCENT AUTO 0 % (0-6); Hemoglobin 10.1 g/dL (13.5-17.5); IMMATURE GRAN ABSOLUTE AUTO 0.26 K/mm3 (0.00-0.10); IMMATURE GRAN PERCENT AUTO 3 % (0-1); LYMPHOCYTES PERCENT AUTO 3 % (21-46); MONOCYTES ABSOLUTE AUTO 0.22 K/mm3 (0.16-1.47); MONOCYTES PERCENT AUTO 3 % (4-13); Mean Corpuscular HGB 31.6 pg (26.0-34.0); Mean Corpuscular HGB Conc 32.6 g/dL (31.5-36.5); Mean Corpuscular Volume 97 fL (80-100); Mean Platelet Volume 9.3 fL (9.1-12.4); NEUTROPHILS ABSOLUTE AUTO 8.15 K/mm3 (1.96-9.15); NEUTROPHILS PERCENT AUTO 91 % (41-73); Platelet Count 144 K/mm3 (150-400); RDW Coefficient Variation 21.5 % (11.7-14.2); RDW Standard Deviation 73.3 fL (35.1-46.3); White Blood Cell Count 8.97 K/mm3 (4.00-11.30)
[2019-12-02 03:42] LABS: Anion Gap 12 mmol/L (6-16); Blood Urea Nitrogen 57 mg/dL (8-24); Bun/Creatinine Ratio 6.2 (12.0-20.0); CO2, Blood 20 mmol/L (21-32); Calcium, Blood 8.2 mg/dL (8.5-10.1); Chloride, Blood 108 mmol/L (98-108); Creatinine, Blood 9.14 mg/dL (0.60-1.20); Glomerular Filtration Rate 6 (60-); Glucose, Blood 134 mg/dL (70-99); Potassium, Blood 4.9 mmol/L (3.5-5.5); Sodium, Blood 140 mmol/L (136-145); Vancomycin, Random 28.5 ug/mL
--- NOTE | 2019-12-02 05:47 | NUR ---
SHIFT SUMMARY: PT A & O THROUGHOUT NIGHT. PT REMAINED IN AFIB WITH RVR DESPITE 5MG OF LOPRESSOR. SBP STABLE, HR IN THE 120S-130S. PT ON BIPAP, SETTINGS 14/6/30%. LUNG SOUNDS CURRENTLY CLEAR IN UPPER LOBES AND DIM IN BASES. SPO2 >90% PT WAS ABLE TO TAKE SHORT BREAKS OFF BIPAP. SPO2 HELD >95% WITH 2L NC. HOWEVER PT WAS SOB SO BIPAP WAS PUT BACK ON. PT REMAINS NPO. DURING ORAL CARE PT COUGHED A COUPLE TIMES. 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 NO OUTPUT. CREATININE DID ELEVATE WITH 3 AM LABS TO 9.14. NELLIE PICC IN PLACE. PATENT AND SL. R ARM FISTULA-ABLE TO FEEL THRILL AND HEAR BRUIT. WILL GIVE UPDATES TO NEXT SHIFT.
--- NOTE | 2019-12-02 08:32 | NUR ---
ASSUMED CARE OF PATIENT AT 0715; SEE ASSESSMENT CHARTING FOR DETAILS. PATIENT AWAKE AND BIPAP IN PLACE: SETTINGS ARE 14/6 WITH FIO2 OF 25%. LUNGS SOUND CLEAR BUT DECREASED IN BASES. COUGH IS MOIST BUT NON-PRODUCTIVE; SPUTUM SPECIMEN UNCOLLECTED, YET. PATIENT ALERT, ORIENTED AND COOPERATIVE; VERY [place], EVEN WITH R HEARING AID IN PLACE. MONITOR REMAINS WITH AFIB/RVR; RATE 120-130'S. PICC LINE INTACT TO NELLIE; NO PERIPHERAL IV'S IN PLACE. COBB CATH. TO GRAVITY; SCANT OUTPUT. TO HAVE HEMODIALYSIS THIS AFTERNOON, AROUND 1300.
--- NOTE | 2019-12-02 10:29 | NUR ---
R HAND/WRIST SWOLLEN; ARMBAND VERY SNUG; REMOVED BAND AND WILL PLACE NEW ONE. BILAT. UE'S ELEVATED ON PILLOWS (ABOVE HEART).
--- NOTE | 2019-12-02 11:06 | NUR ---
SPEECH THERAPIST HERE; TRISTIAN. SWALLOW; SEE THERAPY NOTES. DISCUSSED HER CONCERNS WITH DR. HAMLIN. DR. KING HERE, ALSO, SPOKE TO PATIENT RE: POC TO DO HD IF FISTULA CAN BE ACCESSED; IF NOT WILL HAVE TO HAVE PD; SHE WILL SPEAK TO DIALYSIS NURSE, JOSE.
--- NOTE | 2019-12-02 16:15 | NUR ---
PATIENTS' SON AT BEDSIDE; GRAND-DAUGHTER HER EARLIER. HEMO DIALYSIS READY TO BEGIN; FISTULA BEING ACCESSED BY HD NURSE.
--- NOTE | 2019-12-02 17:42 | NUR ---
12/02/19 1742 FIONA CASIANO History, Chart, Medications and Allergies reviewed before start of procedure.3-LEAD EKG REVIEWED WITH PHYSICIAN PRIOR TO START OF PROCEDURE.PATIENT DETERMINED TO BE ASA APPROPRIATE FOR PROPOFOL SEDATION PRIOR TO START OF PROCEDURE BY O2 VIA N/C INTACT THROUGHOUT SEDATION/PROCEDURE. MAC WITH DR. FISHER
--- NOTE | 2019-12-02 18:08 | NUR ---
Received report from Palliative Care RN that family is requesting a visit. Pt currently resting in bed and is about to undergoe procedure in room. Met with family in ICU waiting room. Family inquires about hospice and it's philosophy. Family reports several medical secretary receptionist including Pt's PCP has suggested hospice. Educated on hospice philosophy and details regarding hospice. Family report thinking hospice would also provide extra assistance with caregiving in the home. Addressed misconceptions regarding hospice and continued answering questions and discussed concerns. Family reports Pt's quality of life has diminished but appears to still be happy and has not discussed or shown any signs of being ready for end of life. Suggested the importance of having a conversation with Pt of what his wishes and goals are for the short term and terminal carman future. Family also expresses frustration regarding Pt's treatment plan and does not feel they are being listened to when it comes to what has worked for Pt and what has not. Family expresses appreciation of visit and report no other concerns. Palliative Care contact imformation given and instructed to call with any questions or concerns. Palliative Care will remain available.
--- NOTE | 2019-12-02 18:36 | NUR ---
SUMMARY: ENDOSCOPY DONE BY DR. GOLDMAN; ANESTHESIA PRESENT WILL DAY SURG. STAFF. ACTUAL ENDO. WAS ONLY 4/MIN; BX TAKEN; NORMAL SCOPE. FEELS SWALLOWING ISSUES ARE RELATED TO WEAK MUSCLES; ST NEEDS TO HELP WITH STRENGTHENING; NEEDS TO REMAIN NPO TIL CLEARED BY ST. MEDS TO BE CHANGED TO IV (THOSE THAT CAN BE). PICC LINE FUNCTIONING WELL; PROBABLY WILL REQUIRE TPN FOR NUTRITION TIL SWALLOW ISSUES IMPROVED; PEG TUBE NOT AN OPTION D/T PD CATHETER. LOPRESSOR 5MG IV EARLIER WITHOUT NOTED CHANGES; HR STAYING 120-128 MOST OF AFTERNOON. JOSE HAS INITIATED HEMODIALYSIS (POST ENDO). PALLIATIVE CARE SPOKE WITH FAMILY THIS EVENING; SEE NOTES.
--- NOTE | 2019-12-02 19:30 | NUR ---
ASSUMED CARE RECEIVED REPORT FROM NGUYỄN COLLADO. PT IS LYING IN BED RECEIVING HEMODIALYSIS THROUGH HIS AV FISTULA IN HIS RIGHT FOREARM. HE IS ON 2L NC, SAT'ING 98%. HR IN THE 120'S, APPEARS TO BE REGULAR. BED IS LOW AND LOCKED. CALL LIGHT WITHIN REACH. HE COMPLAINS OF THIRST.
--- NOTE | 2019-12-02 20:08 | NUR ---
UPDATE PT'S HR INCREASED TO 160'S, PT LOOKS MORE LETHARGIC BUT DENIES CP. GAVE 5MG LOPRESSOR IV, BUT PT'S BLOOD PRESSURE TANKED; MAP<65 X 3 BLOOD PRESSURES, CALLED BOUBACAR - SHE TOLD ME TO PUT HIM ON LEVO UNTIL DIALYSIS IS OVER. DIALYSIS NURSE TURNED DOWN FLUID REMOVAL. PT'S LUNG SOUNDS ARE CLEAR AND DIMINISHED.
--- NOTE | 2019-12-02 22:46 | NUR ---
DIALYSIS PLACED MEEDLES FOR HD BUT NEEDED TO WAIT FOR SCOPE TO BE DONE IN PT ROOM AT 1730. WHEN THEY WERE COMPLETED, UNABLE TO GET NEEDLES TO WORK (THEY HAD BEEN FLUSHED WITH HEPARIN IN HS.) UNABLE TO ACCESS A SECOND TIME, ASKED JOSHUA TO COME IN AND ACCESS THE SITE. WHICH HE DID. WAS TRYING 1000ML OF UF BUT THE HYPOTENSION AND TACHYCARDIA PREVENTED IT. GOT UF OF 500ML.
--- NOTE | 2019-12-02 23:22 | NUR ---
UPDATE PT STATES HE HAS NO CHEST PAIN, AND HE KNOWS WHERE HE IS, AND WHO HE IS. PT STATES HE FEELS FINE. ALL OF THIS DESPITE HIS HR REMAINING 150-160'S. I TALKED TO BOUBACAR, I WILL GIVE 5 OF LOPRESSOR AND INCREASE FREQUENCY FOR PRN DOSE. DISCUSSED PUTTING AN NG TUBE, FOR PO MEDS. WILL FIGURE OUT LATER.
[2019-12-03 03:32] LABS: BASOPHILS ABSOLUTE AUTO 0.05 K/mm3 (0.00-0.23); BASOPHILS PERCENT AUTO 1 % (0-2); EOSINOPHILS ABSOLUTE AUTO 0.06 K/mm3 (0.00-0.68); EOSINOPHILS PERCENT AUTO 1 % (0-6); Hematocrit 27.6 % (37.0-53.0); Hemoglobin 9.2 g/dL (13.5-17.5); IMMATURE GRAN ABSOLUTE AUTO 0.45 K/mm3 (0.00-0.10); IMMATURE GRAN PERCENT AUTO 4 % (0-1); LYMPHOCYTES PERCENT AUTO 6 % (21-46); MONOCYTES ABSOLUTE AUTO 0.95 K/mm3 (0.16-1.47); MONOCYTES PERCENT AUTO 9 % (4-13); Mean Corpuscular HGB 32.1 pg (26.0-34.0); Mean Corpuscular HGB Conc 33.3 g/dL (31.5-36.5); Mean Corpuscular Volume 96 fL (80-100); Mean Platelet Volume 9.3 fL (9.1-12.4); NEUTROPHILS ABSOLUTE AUTO 8.89 K/mm3 (1.96-9.15); NEUTROPHILS PERCENT AUTO 81 % (41-73); Platelet Count 163 K/mm3 (150-400); RDW Coefficient Variation 20.6 % (11.7-14.2); RDW Standard Deviation 69.5 fL (35.1-46.3); Red Blood Cell Count 2.87 M/mm3 (4.30-5.90)
[2019-12-03 03:54] LABS: Albumin, Blood 1.7 g/dL (3.4-5.0); Anion Gap 11 mmol/L (6-16); Blood Urea Nitrogen 44 mg/dL (8-24); CO2, Blood 28 mmol/L (21-32); Calcium, Blood 8.1 mg/dL (8.5-10.1); Chloride, Blood 105 mmol/L (98-108); Creatinine, Blood 6.27 mg/dL (0.60-1.20); Glomerular Filtration Rate 9 (60-); Glucose, Blood 101 mg/dL (70-99); Phosphorus, Blood 5.4 mg/dL (2.5-4.9); Potassium, Blood 3.8 mmol/L (3.5-5.5); Sodium, Blood 144 mmol/L (136-145)
--- NOTE | 2019-12-03 04:19 | NUR ---
PLACED CALL TO BOUBACAR REGARDING ELEVATED HR AND SOFT BP. SHE STATES THAT SINCE HE IS NOT SYMPTOMATIC, WE WILL WAIT TILL MORNING TO INSERT NG TUBE TO GIVE MEDS. ADVISED AGAINST CARDIZEM GTTP AT THIS TIME. PT DENIES CP AND SOB. HE REMAINS AT HIS BASELINE ORIENTATION (SELF, SURROUNDINGS, FAMILY, FOLLOWING DIRECTIONS).
--- NOTE | 2019-12-03 07:21 | NUR ---
SHIFT SUMMARY PT HAD UNEVENTFUL NIGHT. OTHER THAN HAVING SOME LOW BLOOD PRESSURES FOLLOWING LOPRESSOR, HE THEN MAINTAINED MAP>65; LEVO HAS BEEN ON STANDBY ONLY USED DURING DIALYSIS. THEY TOOK OFF 500ML, AND SINCE THEN HIS HR HAS RANGED FROM 130'S UP TO 160'S. ASYMPTOMATIC, DENIES CP, SOB, AND HAS BEEN ORIENTED TO SELF, SURROUNDINGS, PLACE, AND FAMILY. HE DID NOT GET MUCH SLEEP LAST NIGHT. SEE PREVIOUS NOTE REGARDING CALL TO [facility] AND THE PLAN HR AND PO MEDS. HE HAS NOT BEEN PRODUCING SPUTUM DURING HIS MOIST COUGH, SO NO CULTURE SENT YET. BED LOW AND LOCKED. CALL LIGHT WITHIN REACH.
--- NOTE | 2019-12-03 07:30 | NUR ---
ASSUMED CARE OF PATIENT; SEE ASSESSMENT CHARTING FOR DETAILS. PATIENT SLEEPING BUT ROUSES EASILY TO VERBAL OR TACTILE STIMULI. LUNGS CLEAR BUT WHEEZES NOTED WITH ANY EXERTION (COUGHING, TURNING, ETC); COUGH REMAINS MOIST BUT NON-PRODUCTIVE. OXYGEN AT 2L/MIN AND BIOX HIGH 90'S; HAS NOT WORN BIPAP FOR OVER 24/HRS. HR REMAINS HIGH (AFIB/RVR). PRN METOPROLOL GIVEN WITHOUT NOTED RATE CHANGES; SBP 80'S TO LOW 100'S. COBB DRAINING SCANT AMOUNT OF CLOUDY URINE. SCD'S IN PLACE; NO LE EDEMA NOTED. HANDS WITH 1+ EDEMA; REDUCED FROM YESTERDAY. OVERALL STATUS IMPROVING.
--- NOTE | 2019-12-03 08:00 | NUR ---
DR. KING HERE; PATIENT WILL RECEIVE NEXT DIALYSIS TOMORROW.
--- NOTE | 2019-12-03 09:00 | NUR ---
DR. HAMLIN HERE; WANTS DOBBHOFF TUBE PLACED TO GIVE PO METOPROLOL BID WELL OTHER MEDS. AND NUTRITION.
--- NOTE | 2019-12-03 12:27 | NUR ---
TUBE FEEDINGS INITIATED; NEPRO TO START AT 25ML/HR AND ADVANCE 10-20ML EVERY8 HRS TIL GOAL OF 45ML REACHED. WATER 30ML EVERY 4 HOURS FOR FLUSH AND BEFORE AND AFTER MEDS. PATIENT HAD MODERATE LIQUID YELLOW, BROWN STOOL WITH SOME CHUNKS. INCONTINENT BUT BEDPAN ALSO USED; PARTIAL BATH GIVEN WELL LINEN CHANGE; MOISTURE BARRIER AND CALAZIME OINT TO BUTTOCKS REGIONS.
--- NOTE | 2019-12-03 13:30 | NUR ---
TC TO DR. HAMLIN; LEFT MESSAGE RE: PATIENTS' HEART RATE REMAINS FAST (120'S TO 140'S); DOSE OF METOPROLOL WITH LITTLE EFFECT; SBP 80'S TO 90'S; QUESTIONED IF SHE WANTED CARDIOLOGY CONSULT, PREVIOUSLY DISCUSSED?
--- NOTE | 2019-12-03 13:35 | NUR ---
DR. HAMLIN ARRIVED IN UNIT AND SAID TO ORDER CONSULT (DR. MCGUIRE KEYCASE ASSEMBLER).
--- NOTE | 2019-12-03 13:40 | NUR ---
CONSULT PLACED AND RN PAGED DR. MCGUIRE TO CALL ICU.
--- NOTE | 2019-12-03 13:55 | NUR ---
DR. MCGUIRE RETURNED CALL; RN GAVE HIM UPDATE ON CONSULT REQUEST, ETC; V/U.
--- NOTE | 2019-12-03 16:06 | NUR ---
DR. MCGUIRE HERE; DISCUSSING POC, FOR HR/MED MGMENT, WITH DR. HAMLIN.
--- NOTE | 2019-12-03 16:33 | NUR ---
Theraputic visit with patient. updates to pt's daughter for support while she works. they are still persuing treatment at this paoint and stategy to bring pt in to see him. She has dementia.
--- NOTE | 2019-12-03 16:42 | NUR ---
ESMOLOL GTT STARTED AT 25MCG/KG/MIN.
--- NOTE | 2019-12-03 16:48 | NUR ---
ESMOLOL DRIP INREASED TO 50MCG/KG/MN.; HR REMAINS 140'S,MAP 74.
--- NOTE | 2019-12-03 18:00 | NUR ---
SUMMARY: ESMOLOL DRIP TITRATED UP TO 150MCG/KG/MIN; TURNED OFF AROUND 1745 D/T MAP STAYING BELOW 60. SBP 70'S AND MAP > 60 THE PAST FEW CHECKS. TOLERATING DOBBHOFF FEEDINGS; NO ACUTE GI UPSET. COBB OUTPUT 12CCC; URINE TURBID AND CLOUDY. OVERALL STATUS BETTER; NO ACUTE DISCOMFORT; BUTTOCKS HEALING; NO NOTED OPENED AREAS; LIDOCAINE PATCHES ON EACH BUTTOCK TO PROMOTE COMFORT; PATIENTS' BUTTOCKS SORE/BURNING AT TIMES. SLEEPING ON/OFF T/O DAY BUT AWAKE AND MORE ALERT FOR LONGER INTERVALS. BITES OF FL'S GIVEN BY RN; HOB ABOUT 80-90 DEGREES. APPETITE VERY POOR. TO HAVE HEMODIALYSIS TOMORROW. WILL REPORT TO ONCOMING RN.
--- NOTE | 2019-12-03 20:00 | NUR ---
ASSUMPTION OF CARE: PT ALERT AND ORIENTED, LUMMI, AFEBRILE. REMAINS IN AFIB WITH RVR. SBP IN THE 70-90S. HR 130-150. LUNG SOUNDS CLEAR, OCC MOIST COUGH. SPO2>90% ON 2L NC. PT DOES BECOME SOB WITH ANY EXERTION. DOBHOFF IN PLACE WITH CONTINUOUS TF AND MEDS. PT HAS CHRONIC COBB IN PLACE WITH MINIMAL URINE OUTPUT. PT HAS PD CATH IN PLACE WITH CATH ATTACHED TO CHEST. SKIN RED ON BUTTOCKS. NELLIE PICC INFUSING. RA FISTULA THRILL AND BRUIT PRESENT. PT CURRENTLY RESTING COMFORTABLY
--- NOTE | 2019-12-03 22:00 | NUR ---
CALL PLACED TO DR. MCGUIRE RE PTS HR IN THE 150S AND ESMOLOL DROPPING SBP FROM 90-70 (MAP OF 61). PER DR MCGUIRE S/C ESMOLOL AND GIVE 0.125MG OF DIGOXIN IV X 1 NOW.
[2019-12-04 03:44] LABS: Bun/Creatinine Ratio 9.4 (12.0-20.0); Calcium, Blood 7.7 mg/dL (8.5-10.1); Creatinine, Blood 7.24 mg/dL (0.60-1.20); Magnesium, Blood 2.2 mg/dL (1.6-2.4); Phosphorus, Blood 6.3 mg/dL (2.5-4.9)
--- NOTE | 2019-12-04 04:59 | NUR ---
SHIFT SUMMARY: PT RESTING MAJORITY OF SHIFT. LUNG SOUNDS CLEAR AND DIM IN BASES. ON 2LNC. SPO2 >90% INCREASED COUGHING AND SOB WITH MOVEMENT AND TURNS. REMAINS IN AFIB WITH RVR. SBP 80-100S. HR 130-150. ESMOLOL TURNED OFF D/T DROP IN SBP AND MAP. DIG 0.125 GIVEN BEGINNING OF SHIFT WITH LITTLE EFFECT. PO LOPRESSOR GIVEN- NO CHANGE. DOBHOFF IN PLACE FOR CONTINUOUS TF AND MEDS. TF GOING AT 35ML/HR. GOAL IS 45 ML/HR. SMALL BM AT START OF SHIFT. PICC NELLIE INFUSING. RA AV FISTULA. PD LINE AND DRESSING C/D/I. BUTTOCKS REMAIN RED. BARRIER CREAM APPLIED. 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 PLAN TO DIALYZE TODAY. WILL GIVE REPORT TO ONCOMING SHIFT
--- NOTE | 2019-12-04 07:00 | NUR ---
DR MALHOTRA: DR MALHOTRA IN TO ASSESS PT. VERBAL ORDER FOR AMIODARONE BOLUS, THEN DRIP PER ORDERS.
--- NOTE | 2019-12-04 07:30 | NUR ---
AM ASSESSMENT: PT ALERT AND ORIENTED TO PERSON/FAMILY/PLACE/FOLLOWS DIRECTIONS AND ANSWERS QUESTIONS APPROPRIATELY. TE-MOAK AND WEARS BILATERAL HEARING AIDS. PT VERY STIFF AND ONLY MINIMALLY ABLE TO ASSIST WITH TURNS IN THE BED. PT PLACED IN CHAIR VIA LIFT. PT REPORTS MILD DISCOMFORT TO BACK (CHRONIC) AND BUTTOCKS (WOUND). LUNGS ARE DIMINISHED T/O BILATERALLY, ESPECIALLY IN BILATERAL BASES AND SCATTERED EXP WHEEZES. PT HAS SPASMOTIC COUGHING EPISODE WITH CONVERSATIONS OR ANY CARE PROVIDED. REPORTS COUGH IS NON-PRODUCTIVE. PT WILL DESAT DURING COUGHING TO HIGH 80% RANGE ON 2-3L 02 VIA N/C. CURRENTLY ON 3L 02. HR IRREGULAR. TOO START AMIODARONE ONCE IT ARRIVES FROM PHARMACY. HR INITIALLY 120-140'S. 150-160'S WITH CARE/REPOSITIONING. PICC LINE IN LT UA, PATENT WITH DRSG INTACT. CHRONIC COBB CATH IN PLACE WITH MINIMAL URINE OUTPUT. PT WAS INCONTINENT OF THIN/LOOSE BROWN STOOL. EXCORITATION WITH SMALL AREA OF BLEEDING TO BUTTOCKS. AREA CLEANSED WITH SOAP WATER THEN FOAM DRSG APPLIED. -DNR/DNI STATUS -CONTINUE TUBE FEEDINGS PER ORDERS (NEPHRO AT GOAL RATE) -TURN/REPOSITION Q2H OR PRN FOR COMFORT
--- NOTE | 2019-12-04 10:09 | NUR ---
PT UPDATE: PT DID NOT TOLERATE SITTING UP IN THE CHAIR FOR LONG. PT APPEARS UNCOMFORTABLE, DESPITE ATTEMPTS TO CHANGE POSITION AND COMFORT MEASURES PROVIDED. LIFT USED TO GET PT BACK TO BED. HR IMPROVED AFTER AMIODARONE BOLUS AND CONTINUED AMIODARONE GTT. HR NOW 100-110'S.
--- NOTE | 2019-12-04 11:35 | NUR ---
DR KING IN TO ASSESS PT.
--- NOTE | 2019-12-04 12:26 | NUR ---
DR MARIN: AT THE BEDSIDE TO ASSESS PT. DR FARNSWORTH THIS RN UPDATED PT'S SON-IN-LAW.
--- NOTE | 2019-12-04 12:34 | NUR ---
[place] HERE FROM DIALYSIS, HERE TO SET PT UP FOR HEMO-DIALSIS [place].
--- NOTE | 2019-12-04 15:34 | NUR ---
PT UPDATE: PT IS FINISHING UP HEMODIALYSIS WITH NGUYỄN COLEMAN. PT TOLERATING WELL. NO DRAMATIC CHANGE IN VS. BP'S REMAINS STABLE, SEE FLOWSHEET.
--- NOTE | 2019-12-04 17:32 | NUR ---
SHIFT SUMMARY: PT IS ALERT AND ORIENTED TO SELF/FAMILY/SITUATION. ABLE TO FOLLOW COMMANDS AND ANSWER QUESTIONS APPROPRIATELY. DENIES ANY PAIN BUT DOES SUFFER FROM CHRONIC BACK PAIN. HOWEVER, MAIN DISCOMFORT T/O SHIFT IS THE SKIN BREAKDOWN ON HIS COCCYX AND DOBHOFF TUBE. PT DOES CONTINUE TO BE DYSPNEIC WITH MINIMAL EXERTION/CONVERSATION. HOWEVER, 02 SATS MID-HIGH 90% RANGE ON 2L 02 VIA NC. HR IRREGULARLY, IRREGULAR, ATRIAL FIB, RATES 110-120'S RANGE WITH USE OF AMIODARONE GTT @ 0.5MG/MIN. ABD IS SLIGHTLY DISTENDED, WITH MILD PAIN WITH PALPATION. SPEECH THERAPY ATTEMPTED TO RE-EVAL PT, HOWEVER, PT HAS A VERY POOR APPETITE AND ONLY WANTED SOME CRANBERRY JUICE TO MOISTEN HIS MOUTH. PT HAD 2 MEDIUM LOOSE/LIQUID STOOLS EARLIER THIS SHIFT. RECTAL TUBE PLACED FOR INCONTINENCE OF BOWEL AND TO AID IN WOUND HEALING, PT'S RT/LT BUTTOCKS/COCCYX ARE EXCORIATED WITH ONE SMALL AREA THAT IS BLEEDING ON RT MEDIAL BUTTOCKS. PICTURES TAKEN THIS SHIFT AND PLACED ON CHART. -DNR STATUS -CONTINUE PT/OT -CONTINUE TUBE FEEDS, FOLLOW ST RECOMMENDATIONS -MONITOR CARDIAC STATUS, AND CONT AMIODARONE GTT.
--- NOTE | 2019-12-04 19:07 | NUR ---
HAYDEN, PALLATIVE CARE RN AT THE BEDSIDE. PT WITH INCREASE RESTLESSNESS, GRUNTING/MOANING. REPORTS HE IS UNCOMFORTABLE BUT UNABLE TO STATE WHY. DISCUSSED THESE SYMPTOMS WITH NGUYỄN BLAKE WHOM RECOMMENDED WE CONSULT WITH DR ALTAMIRANO, RE: FLUID BALANCE. THIS WAS DISCUSSED IN BEDSIDE REPORT AND EDITA RN TO CALL DR KING TO DISCUSS ABOVE.
--- NOTE | 2019-12-04 19:15 | NUR ---
REPORTED OFF TO NGUYỄN KOHLER WHOM IS NOW ASSUMING CARE OF THIS PT.
--- NOTE | 2019-12-04 20:00 | NUR ---
ASSUMED CARE OF PT AT 1915. REPORT RECEIVED AT BEDSIDE. PT PRESENTS IN BED. ALERT AND ORIENTED. PLEASANT AND COOPERATIVE WITH CARE AND ASSESSMENT. PT HAS PERSISTANT MOIST COUGH WITH UPPER AIRWAY COARSENESS. DIMINISHED BREATH SOUNDS IN MID TO LOWER LOBES. TUBE FEEDING AT GOAL PER DOBHOFF TUBE. PT'S DAUGHTER IN ROOM. TEACHING DONE WITH PATIENT AND HIS DAUGHTER. WILL REVIEW CHART AND PLAN OF CARE FOR THIS PT.
--- NOTE | 2019-12-04 22:52 | NUR ---
CALL MADE TO DR SLADE WITH REQUESTS FROM DAUGHTER FOR PT TO RECEIVE HIS SEROQUEL PER HIS HOME DOSE. ORDER RECEIVED. CALL TO DR KING CONCERNING FLUID BALANCE. ORDERS RECEIVED. WILL CONTINUE TO MONITOR PT.
--- NOTE | 2019-12-05 02:00 | NUR ---
PT AWAKENS EASILY AND BEGINS WITH MOIST NONPRODUCTIVE COUGH. DID PROVIDE PT WITH YAUNKEUR TO SELF-SUCTION SECRETIONS IF HE IS ABLE. HAVE CONTINUED WITH AT LEAST Q 2 HOUR POSITIONING FOR COMFORT. JANA REMAINS PATENT TO LIQUID BROWN STOOL. CONTINUES ON AMIODARONE DRIP WITH HEART RATES REMAINING 100-120'S IN AFIB. WILL CONTINUE TO MONITOR PT.
[2019-12-05 06:07] LABS: BASOPHILS ABSOLUTE AUTO 0.06 K/mm3 (0.00-0.23); BASOPHILS PERCENT AUTO 1 % (0-2); EOSINOPHILS ABSOLUTE AUTO 0.24 K/mm3 (0.00-0.68); EOSINOPHILS PERCENT AUTO 3 % (0-6); Hematocrit 26.7 % (37.0-53.0); Hemoglobin 8.4 g/dL (13.5-17.5); IMMATURE GRAN ABSOLUTE AUTO 0.59 K/mm3 (0.00-0.10); IMMATURE GRAN PERCENT AUTO 6 % (0-1); LYMPHOCYTES ABSOLUTE AUTO 0.48 K/mm3 (0.84-5.20); LYMPHOCYTES PERCENT AUTO 5 % (21-46); MONOCYTES ABSOLUTE AUTO 0.72 K/mm3 (0.16-1.47); MONOCYTES PERCENT AUTO 8 % (4-13); Mean Corpuscular HGB 31.1 pg (26.0-34.0); Mean Corpuscular HGB Conc 31.5 g/dL (31.5-36.5); Mean Corpuscular Volume 99 fL (80-100); Mean Platelet Volume 9.5 fL (9.1-12.4); NEUTROPHILS ABSOLUTE AUTO 7.38 K/mm3 (1.96-9.15); NEUTROPHILS PERCENT AUTO 78 % (41-73); Platelet Count 150 K/mm3 (150-400); RDW Coefficient Variation 20.2 % (11.7-14.2); RDW Standard Deviation 68.9 fL (35.1-46.3); White Blood Cell Count 9.47 K/mm3 (4.00-11.30)
[2019-12-05 06:18] LABS: Bun/Creatinine Ratio 9.3 (12.0-20.0); Calcium, Blood 7.4 mg/dL (8.5-10.1); Creatinine, Blood 5.27 mg/dL (0.60-1.20); Phosphorus, Blood 4.1 mg/dL (2.5-4.9); Potassium, Blood 3.5 mmol/L (3.5-5.5)
--- NOTE | 2019-12-05 06:35 | NUR ---
PT HAS SLEPT SOME THIS NIGHT. DOES MOAN OUT AT TIMES. WAS MEDICATED WITH TYLENOL ONCE FOR BACK PAIN. PT STATES IT DID HELP SOME. PT TOLERATES TUBE FEEDING. DIGNISHIELD REMAINS INTACT. DRAINS LIQUID BROWN STOOL. PT TURNED Q 2 HOURS IN BED FOR COMFORT. WILL CONTINUE TO MONITOR, AND WILL REPORT OFF TO ONCOMING RN.
--- NOTE | 2019-12-05 07:00 | NUR ---
REC'D BEDSIDE REPORT FROM NGUYỄN KOHLER AND AM NOW ASSUMING CARE OF THIS PT.
--- NOTE | 2019-12-05 07:15 | NUR ---
AM ASSESSMENT: PT IS ALERT TO VERBAL STIMULI, ORIENTED TO PERSON/PLACE/SITUATION. PT IS VERY DECONDITIONED AND ONLY ABLE TO MINIMALLY ASSIST WITH TURNS IN BED. PT IS OVERALL STIFF. PT/OT WORKING WITH PT. LUNGS ARE CLEAR BUT DIMINISHED T/O BILATERALLY. 02 SATS >90% ON 2L 02 VIA N/C. HR IRREGULAR, ATRIAL FIB, RATES 110-120'S. PICC IN THE LT UA WITH AMIODARONE @ 0.5MG/HR. WILL CONSULT WITH CARDIOLOGY TODAY FOR DIRECTION ON CONTINUED RATE CONTROL. ABD MODERATELY DISTENDED/SOFT/NON-TENDER TO PALPATION. BT'S HYPOACTIVE X4 QAUDS. DOBHOFF IN PLACE TO LEFT NARES WITH NEPHRO TUBE FEEDS GOING AT GOAL RATE OF 45ML/HR. CHRONIC COBB IN PLACE WITH OLIGURIA.
--- NOTE | 2019-12-05 07:39 | NUR ---
DR COLLINS AT THE BEDSIDE TO ASSESS PT. DISCUSSED ORDERING SOMETHING FOR PAIN RELIEF/DISCOMFORT, PT HAS CHRONIC BACK PAIN AND DECLINES LIDOCAINE PATCHES. PT BEING TURNED Q2H AND PRN FOR COMFORT.
--- NOTE | 2019-12-05 08:06 | NUR ---
PT MEDICATED: PT CONTINUES TO APPEAR RESTLESS AND MOANS CONTINUOUSLY. UNABLE TO RATE DISCOMFORT. PT MEDICATED WITH FENTANYL PER ORDERS AND REPOSITIONED.
--- NOTE | 2019-12-05 12:30 | NUR ---
Pt more comfortable today. Awaiting family to review plan of care. Nursing will update doctor Santiago.
--- NOTE | 2019-12-05 12:32 | NUR ---
DR KING IN TO ASSESS PT. NO CHANGES TODAY. NO DIALYSIS TODAY.
--- NOTE | 2019-12-05 15:51 | NUR ---
PT UPDATE: PT SAT UP TO 90 DEGREES AND GIVEN SEVERAL SPOONFULS OF CRANBERRY JUICE (PT'S FAVORITE), BEFORE PT BECAME SOME WHAT TACHYNPEIC. NO S/SX OF ASPIRATION. 02 SATS MAINTAINED DURING SPOONFULS OF LIQUID, HOWEVER, PT CONTINUES TO HAVE VERY POOR APPETITE.
--- NOTE | 2019-12-05 16:34 | NUR ---
SHIFT SUMMARY: PT HAS APPEARED VERY TIRED ALL SHIFT, HOWEVER, EVERY TIME PT CLOSES EYES, HE QUICKLY OPENS THEM WITHIN A SHORT PERIOD OF TIME, THOUGH HE WAS STARTLED. PT HAS MANY TIMES DENIED PAIN T/O SHIFT, EVEN WHEN HE HAS APPEARED RESTLESS/UNCOMFORTABLE. DURING THE TIMES PT HAS REPORTED OVERALL DISCOMFORT/BACK PAIN THE FENTANYL IVP GIVEN ONLY SEEMED TO MINIMALLY HELP. PT OFFERRED ICE/HEAT/REPOSITIONING MORE FREQUENTLY/LIDOCAINE PATCHES. LUNGS THIS AFTERNOON ARE TIGHT/WITH SCATTTERED EXP WHEEZES T/O BILATERALLY, WHEEZES HEARD IN THE UPPER AIRWAYS. 02 SATS >90% ON RA. PT TRIED ON RA, SATS AT REST ARE MAINLY 98-100%. WITHIN 5 MINUTES OF REMOVING O2, PT DESATED TO 88%. 2L 02 PLACED BACK ON PT. PICC LINE IN THE LT UA WITH NS TKO. HR IRREGULAR, ATRIAL FIB-100-110'S. AMIODARONE CHANGED TO PER TUBE THIS SHIFT AND IV AMIODARONE D/C'D. ABD VERY DISTENDED/SLIGHTLY TENDER/ WITH HYPOACTIVE BT'S X4. PT CONT TO HAVE LOOSE STOOL OUTPUT PER RECTAL TUBE. TUBE FEEDINGS CONTINUED PER ORDERS.
--- NOTE | 2019-12-05 19:11 | NUR ---
REPORTED OFF TO NGUYỄN KOHLER WHOM IS NOW ASSUMING CARE OF THIS PT.
--- NOTE | 2019-12-05 20:17 | NUR ---
ASSUMED CARE OF PT AT 1915. REPORT RECEIVED. PT PRESENTS IN BED. ON 1 L/M O2 PER NASAL CANNULA. HAS BEEN MOANING, AND WHEN ASKED HOW HOW HIS DAY WAS, HE REPLIED, "LONG" PT HAS MOIST NONPRUCTIVE COUGH. TURNED PT TO HIS SIDE TO LOCATE AREA WHERE HIS BACK IS PAINFUL. PLACE LIDOCAINE PATCHES DIRECTLY OVER AREA HE INDICATED. RT TRIALED PT ON ROOM AIR. HIS SATURATIONS WOULD REMAIN BETWEEN 88-91 PERCENT. PT PLACED BACK TO 1 L/M PER NASAL CANNULA. WILL REVIEW CHART AND PLAN OF CARE FOR THIS PT.
--- NOTE | 2019-12-05 22:36 | NUR ---
HAVE MEDICATED PT WITH 25 MCG'S FENTANYL FOR CONTINUED BACK PAIN. PT HAS HAD LESS MOANING SINCE DOSING. PT CONTINUES ON 1 L/M O2 AND MAINTAINING SATURATIONS >90 PERCENT. WILL CONTINUE TO MONITOR PT.
--- NOTE | 2019-12-06 01:50 | NUR ---
PLACED WARM PACK TO PT'S LOWER BACK TO HELP WITH PAIN. PT WAS ABLE TO SLEEP AFTERWARDS. WILL ASK PT IF WARM PACK WAS AFFECTIVE. PT DOES HAVE FREQUENT MOANING WITH RESPIRATION. HAS NOT EXPECTORATED ANY SECRETIONS THIS SHIFT. CONTINUES ON 1 L/M O2 PER NASAL CANNULA. DIGNISHIELD REMAINS PATENT. DRAINS LIQUID BROWN STOOL. HEART RATES REMAIN BETWEEN 100-120'S. WILL CONTINUE TO MONITOR PT.
[2019-12-06 04:13] LABS: Bun/Creatinine Ratio 10.4 (12.0-20.0); Calcium, Blood 7.6 mg/dL (8.5-10.1); Creatinine, Blood 5.96 mg/dL (0.60-1.20); Phosphorus, Blood 4.5 mg/dL (2.5-4.9)
[2019-12-06 04:17] LABS: Thyroid Stimulating Hormone 2.99 uIU/mL (0.360-4.800)
--- NOTE | 2019-12-06 05:08 | NUR ---
PT HAS BEEN ABLE TO REST FOR SHORT PERIODS. AWAKENS AND BEGINS TO MOAN WITH EACH BREATH. HAVE DONE APAP, FENTANYL, LIDOCAINE PATCHES, POSITION CHANGES, AND RUB OF AREA. PT REMAINS WITH MOIST TYPE COUGH. DIGNISHIELD WITH LIQUID STOOL OUTPUT. PT OLIGURIC, HEART RATE AGAIN REMAINS BETWEEN 100-120'S. REMAINS ON 1 L/M OXYGEN. TOLERATING TUBE FEEDING. WILL CONTINUE TO MONITOR PT, AND WILL REPORT OFF TO ONCOMING RN.
--- NOTE | 2019-12-06 07:39 | NUR ---
ASSUMED CARE RECEIEVED REPORT FROM NGUYỄN MCDOWELL. PT IS LYING IN BED MOANING. HE HAS BEEN DOING THIS FOR THE LAST FEW DAYS. HE IS ON 1L NC, IN AFIB WITH A RATE OF 100-120. HE HAS A PATENT COBB, DRAINING URINE (PT IS OLIGURIC) WELL A RECTAL TUBE DRAINING LIQUIDY BROWN FECES. HE HAS A PD CATHETHER. SCD'S ARE ON BILATERAL CALVES. HIS PICC IN HIS UPPER LEFT ARM IS WNL. HE HAS A DOBHOF WITH TF INFUSING AT GOAL RATE OF 45ML/HR, NEPHRO IS THE TF. HE HAS A FISTULA IN HIS RIGHT FOREARM, WITH A PALPABLE THRILL AND A BRUIT TO AUSCULTATION. HE IS AWAKE AND ALERT, HE SEEMS TO BE ORIENTED TO SELF, AND SURROUNDINGS. BED IS LOW AND LOCKED. CALL LIGHT WITHIN REACH.
--- NOTE | 2019-12-06 16:08 | NUR ---
UPDATE PT HAS HAD OKAY DAY SO FAR. HE WAS RESTING AFTER BATH AROUND NOON, LOOKING MORE COMFORTABLE THAN THIS MORNING. WHEN AWAKE HE HAS BEEN MOANING, BUT DENIES PAIN MOST OF THE TIME. I DID MEDICATE FOR BACK PAIN AFTERNOON. AT 1530 PT ACCIDENTALLY PULLED OUT DOBHOF, WHICH HAD TO BE REPLACED DUE TO NEEDING MEDS PER TUBE. I REPLACED TUBE AT 1545, CHEST XRAY HAS CONFIRMED DOBHOF PLACEMENT (EDITA ROWE THE RADIOLOGIST CONFIRMS). HE WILL BE MOVING TO PCU 8 AFTER I GIVE REPORT TO THE NURSE. VITALS HAVE BEEN STABLE, HR HAS BEEN MORE CONTROLLED, BUT STILL TOUCHING 130'S. DAUGHTER HAS BEEN NOTIFIED.
--- NOTE | 2019-12-07 08:59 | NUR ---
HOSPITALIST NOTIFIED OF PT'S STATUS THIS AM & STAT CHEST XRAY FOR NG PLACEMENT. NO NEW ORDERS.
--- NOTE | 2019-12-07 09:10 | NUR ---
SHIFT SUMMARY PT A&O; FAMILY AT BEDSIDE AT BEGINING OF SHIFT; DOBHOFF IN PLACE; RECTAL TUBE IN PLACE; COBB IN PLACE; PT REPOSITIONED AND SUCTIONED FOR SECRETIONS; PT STRUGGLES TO COUGH ENOUGH TO EXPEL; DAUGHTER CALLED AND REASSURED APPROXIMATELY @ 2215 THAT PT HAD FEEDING INFUSING AND MEDICATIONS ADMINISTERED; PT DESATS W/ REPOSITION, COUGH AND TALKING; APPROXIMATELY @2340 PROVIDER CALLED AND NEW ORDER GIVEN FOR DIABETIC GUAIFENESIN TO THIN SECRETIONS; PT GIVEN TYLENOL IN DOBHOFF FOR PAIN PER EMAR; PT STATES PAST FENTANYL ADMINISTRATION DID NOT HELP; STATES UPON REASSESMENT TYLENOL DID NOT HELP; PT COACHED ON BREATHING SEVERAL TIMES IN NIGHT; RT CALLED TO BEDSIDE DUE TO DESATURATIONS AND WORK OF BREATHING; COUGH ASSISTANCE PROVIDED BY RT; VENTI MASK APPLIED; PT STATED HE COULD NOT TOLERATE MASK; CLAY HOUSE WORKER PROVIDER IN [facility] NOTIFIED OF PT CONDITION APPROXIMATELY 0430; ORDER GIVEN FOR DEEP SUCTIONING TO RELIEVE SECRETIONS; RT NOTIFIED AND SUCTIONING PERFORMED AND REPOSITIONING; MINIMAL IMPROVEMENT NOTED; THIS AM DR. LOVE AT BEDSIDE; DR. KING TO SEE PT; COIL CUTTER AT BEDSIDE REPORT GIVEN TO DAY SHIFT RN AND CALL LIGHT ON PT'S ABDOMEN
--- NOTE | 2019-12-07 20:07 | NUR ---
Pt declining and minimally responsive, resp[iration uneven and more labored. Family in review of prognosis and decline. AFter some discussion and review with Doctor Pierre they made pt comfort care. Multiple visit for support and sysmptom management. pt appears eminent. in pt was only able to say a few words and unable to tolerate much interation. Review with daughter that if he decline further may be tiem to stop oxygen. Dr wren in to confirm with family their choices and his condition. Daughter at bedside spending the night.
--- NOTE | 2019-12-07 20:15 | NUR ---
SUMMARY PLEASE SEE PALLIATIVE CARE NOTE. PT CHANGED TO COMFORT CARE. PT'S DAUGHTER IS AT THE BEDSIDE AT THIS TIME. PT CONTINUES TO HAVE AGANOL BREATHING BUT APPEARS TO BE COMFORTABLE AT THIS TIME. PT'S DAUGHTER HAS BEEN EDUCATED ABOUT MEDICATIONS AND OPTIONS TO HELP HER FATHER IF HE APPEARS TO BE UNCOMFORTABLE AT ANY TIME. PICC LINE,COBB AND RECTAL TUBE HAVE BEEN LEFT IN PLACE FOR COMFORT AT THIS TIME TO AVOID FREQUENT BED CHANGES, DOBHOFF WAS D/C WNL @1515. COMFORT CARE CART & GUEST TRAY WAS ORDERED FOR THE FAMILY BUT WAS NOT DELIVERED. NURSING MECHANICAL ENGINEERING LECTURER WAS NOTIFIED. PT'S WAS ABLE TO COME IN TO VISIT THIS AFTERNOON. REPORT GIVEN TO HILDA RN.
--- NOTE | 2019-12-07 22:24 | NUR ---
PT W/ INCREASED RR & MOANING, MEDICATED FOR PAIN & ANXIETY. FAMILY AT BEDSIDE. PT NOW RESTING COMFORTABLY, SHOWING NO SIGNS PAIN/DISTRESS.
--- NOTE | 2019-12-08 00:55 | NUR ---
PT SLEEPING W/ RESPIRATIONS NORMAL & NO S/S PAIN/DISCOMFORT AT THIS TIME. FAMILY AT BEDSIDE. WILL CONTINUE TO MONITOR AND PROVIDE CARE.
--- NOTE | 2019-12-08 10:39 | NUR ---
Comfort Care Visit: Pt resting in bed with his eyes closed. Pt appears comfortable with no S/S of distress at this time. Pt's daughter and son in law at bedside. Family reports being at peace with decision and report no concerns at this time. Family expresses appreciation of visit. Spoke with bedside RN Dinora and discussed case. Palliative Care will remain available.
--- NOTE | 2019-12-08 11:45 | NUR ---
BEDSIDE REPORT REC'D FROM GUME ADRIAN. MICHAEL AT BEDSIDE. MORPHINE GIVEN FOR LABORED BREATHING AND RESTLESSNESS. GRANDSON DIDNT' FEEL THAT BOTHERING THE PT FOR A SET OF VS WAS NECESSARY GIVEN THE PROGNOSIS AND PT STATUS. PT WARM, BLANKET REMOVED, SHEET IN PLACE.
--- NOTE | 2019-12-08 11:51 | NUR ---
PT INDICATED TO DAUGHTER THAT HE WANTED MEDICATION. HEARING AID PLACED BACK IN EAR. EYES OPEN, RESPONDING TO SIMPLE QUESTIONS THEN CLOSES EYES. SKIN PWD. MOUTH OPEN, BREATHING A LITTLE LABORED.
--- NOTE | 2019-12-08 11:53 | NUR ---
PT RESTING QUIETLY. FAMILY AT BEDSIDE.
--- NOTE | 2019-12-08 19:00 | NUR ---
REPORT FROM DAY SHIFT RN. ASSUMED PT CARE. MULT FAMILY AT BEDSIDE. PT APPEARS COMFORTABLE. WILL CONTINUE COMFORT CARE ORDERS.
--- NOTE | 2019-12-08 19:25 | NUR ---
NO SIG CHANGES WITH PT TODAY. MEDICATED WITH 10MG DARRION AND 1-2MG ATIVAN T/O THE DAY WITH PERIODS OF RESPONSIVENESS ALTHOUGH VERY MINIMAL. FAMILY FEELS LIKE HE IS COMFORTABLE AND WISHED FOR HIM TO NOT BE DISTURBED. CATH CARE WAS PERFORMED IT APPEARED TO BE ONE SOURCE OF HIS AGITATION REACHING DOWN FOR IT. CLEANING AND CARE PROVIDED ALONG WITH MEDICATION AND PT RESTED QUIETLY WITH EVEN RESPS. SOME RATTLING DEVELOPING BACK OF THROAT. BEDSIDE REPORT GIVEN TO JAMES ADRIAN.
--- NOTE | 2019-12-08 20:30 | NUR ---
PT REPOSITIONED AND CLEANED. NEW NIXON PLACED. EXT PROPPED ON PILLOWS.
--- NOTE | 2019-12-08 20:45 | NUR ---
ROOM ASSIGNMENT RECEIVED. 311. WILL CALL REPORT. FAMILY UPDATED.
--- NOTE | 2019-12-08 20:53 | NUR ---
PT MEDICATED WITH ROXANOL AND ATIVAN PER EMAR.
--- NOTE | 2019-12-08 21:15 | NUR ---
PT RESTING MORE COMFORTABLY.
--- NOTE | 2019-12-08 21:32 | NUR ---
REPORT TO SAUL ADRIAN ON MEDICAL FLOOR.
--- NOTE | 2019-12-08 22:10 | NUR ---
PT TO MEDICAL FLOOR.
--- NOTE | 2019-12-08 22:25 | NUR ---
TRANSFER NOTE HANDOFF RECEIVED FROM PCU NURSE JAMES. PT TRANSFERED TO FLOOR VIA GURNEY. FAMILY AT BEDSIDE. FAMILY ORIENTED TO UNIT. PT RESTING COMFORTABLY.
--- NOTE | 2019-12-09 02:03 | NUR ---
PATIENT FAMILY REQUESTED THAT THE PATIENT BE CHECKED AGAIN. PATIENTS RN IS CURRENTLY ON BREAK. ARRIVED TO ROOM, FAMILY MEMBER REPORTS HE GASPED FOR AIR JUST A FEW MINUTES AGO. PATIENT IS NEGATIVE FOR HEART AND LUNG SOUNDS. TIME OF CALLED AT 0154. ASKED IF THERE IS ANY FAMILY THAT NEEDS TO BE CALLED. HE STATES THAT ALL THE FAMILY CAME BY YESTERDAY TO SAY THERE GOOD BYES. DENIED PASTRAL CARE. INFORMED FAISAL ADRIAN OF HER PATIENTS PASSING.
== END 2019-12-09 01:54 | DRG 698 ==
LOC: ER 16:10 → MEDS 20:13 → ICUE 11-27 14:26 → MEDS 11-27 14:26 → ICUE 11-30 10:43 → PCU 12-06 17:44 → MEDS 12-08 22:07
PROVIDERS: Emergency Medicine; Family Medicine; Internal Medicine; Internal Medicine Critical Care Medicine; Internal Medicine Nephrology; Internal Medicine Pulmonary Disease; Pharmacist; ADMIT Internal Medicine
PROC: 0DD48ZX Extraction of Esophagogastric Junction, Via Natural or Artificial Opening Endoscopic, Diagnostic (ICD-10-PCS; principal; 2019-11-28)
PROC: 0W9G3ZX Drainage of Peritoneal Cavity, Percutaneous Approach, Diagnostic (ICD-10-PCS; 2019-11-28)
PROC: 30233N1 Transfusion of Nonautologous Red Blood Cells into Peripheral Vein, Percutaneous Approach (ICD-10-PCS; 2019-11-28)
PROC: 5A1D70Z Performance of Urinary Filtration, Intermittent, Less than 6 Hours Per Day (ICD-10-PCS; 2019-11-28)
PROC: 5A1D70Z Performance of Urinary Filtration, Intermittent, Less than 6 Hours Per Day (ICD-10-PCS; 2019-11-30)
PROC: 5A1D70Z Performance of Urinary Filtration, Intermittent, Less than 6 Hours Per Day (ICD-10-PCS; 2019-12-02)
PROC: 5A1D70Z Performance of Urinary Filtration, Intermittent, Less than 6 Hours Per Day (ICD-10-PCS; 2019-12-04)
DX: T83.511A Infection and inflammatory reaction due to indwelling urethral catheter, initial encounter (principal); G93.41 Metabolic encephalopathy; N18.6 End stage renal disease; J18.9 Pneumonia, unspecified organism; J96.01 Acute respiratory failure with hypoxia; I21.4 Non-ST elevation (NSTEMI) myocardial infarction; J69.0 Pneumonitis due to inhalation of food and vomit; E44.0 Moderate protein-calorie malnutrition; I12.0 Hypertensive chronic kidney disease with stage 5 chronic kidney disease or end stage renal disease; K92.2 Gastrointestinal hemorrhage, unspecified; Z51.5 Encounter for palliative care; I95.9 Hypotension, unspecified; I48.0 Paroxysmal atrial fibrillation; Z99.2 Dependence on renal dialysis; I25.10 Atherosclerotic heart disease of native coronary artery without angina pectoris; D63.1 Anemia in chronic kidney disease; Z68.28 Body mass index [BMI] 28.0-28.9, adult; Z95.5 Presence of coronary angioplasty implant and graft; E87.6 Hypokalemia; R13.10 Dysphagia, unspecified; Z79.82 Long term (current) use of aspirin; K21.9 Gastro-esophageal reflux disease without esophagitis; E03.9 Hypothyroidism, unspecified; E86.0 Dehydration; B95.2 Enterococcus as the cause of diseases classified elsewhere
CPT/HCPCS: 31720; 36415; 36430; 36569; 36600; 71045; 71046; 74018; 74220; 80048; 80053; 80069; 80202; 81001; 82803; 82945; 82947; 83605; 83735; 84100; 84157; 84443; 84484; 85014; 85018; 85025; 86850; 86900; 86901; 86923; 87040; 87070; 87077; 87086; 87186; 87205; 88305; 89051; 92526; 92610; 93005; 93010; 94640; 94660; 94667; 94760; 94762; 96365; 97110; 97162; 97166; 97530; 99285-25; A9270; C1751; C9113; G0378; J0282; J0290; J0696; J0881; J1160; J1430; J1956; J2060; J2185; J2405; J2704; J2920; J3010; J3370; J3475; J3480; J7030; J7050; J7060; P9016